=== PATIENT | female | born 1970 | race Caucasian/White ===

== ENCOUNTER 2023-01-13 15:51 | Emergency (ER) | payer OTHER, SELFPAY ==
[2023-01-13 16:05] VITALS: BP 113/93; PULSE 95; RESP 18; TEMP 36.6; O2SAT 94
--- NOTE | 2023-01-13 16:25 | ED.SKABFB ---
HPI - Skin/Abscess/Foreign Bdy General Chief complaint: Skin/Abscess/Foreign Body Stated complaint: Skin Sore/Left Side Time Seen by Provider: 01/13/23 16:10 Source: patient Mode of arrival: ambulatory Limitations: no limitations History of Present Illness HPI narrative: Vashti is a 52-year-old female patient presenting to the clinic today with complaints of a skin rash to the left abdominal wall. She reports that this been there for 2-3 days. States that the rash is itchy, red, and cr. Related Data Home Medications Medication Instructions Recorded Confirmed albuterol sulfate 90 mcg/actuation 90 inh inhalation DIRECTED 01/13/23 01/13/23 aerosol inhaler carvedilol 6.25 mg tablet 6.25 mg DIRECTED 01/13/23 01/13/23 cyclobenzaprine 10 mg tablet 10 mg DIRECTED 01/13/23 01/13/23 diphenoxylate-atropine 2.5 1 tablet DIRECTED 01/13/23 01/13/23 mg-0.025 mg tablet hydroxyzine HCl 25 mg tablet 25 mg DIRECTED 01/13/23 01/13/23 omeprazole 20 mg capsule,delayed 20 mg DIRECTED 01/13/23 01/13/23 release ondansetron HCl 4 mg tablet 4 mg DIRECTED 01/13/23 01/13/23 phenytoin 50 mg chewable tablet 50 mg DIRECTED 01/13/23 01/13/23 (Dilantin Infatabs) potassium chloride 10 mEq 10 meq PO DIRECTED 01/13/23 01/13/23 tablet,extended release ustekinumab 90 mg/mL subcutaneous 90 mg subcut DIRECTED 01/13/23 01/13/23 syringe (Stelara) Allergies Allergy/AdvReac Type Severity Reaction Status Date / Time codeine Allergy Severe Anaphylaxis Verified 01/13/23 16:17 fentanyl Allergy Severe Seizure Verified 01/13/23 16:17 ibuprofen Allergy Severe Anaphylaxis Verified 01/13/23 16:17 clarithromycin [From Biaxin] Allergy Mild Rash Verified 01/13/23 16:17 latex Allergy Mild Redness of Verified 01/13/23 16:17 Skin Penicillins Allergy Mild Rash Verified 01/13/23 16:17 Sulfa (Sulfonamide Allergy Mild Rash Verified 01/13/23 16:17 Antibiotics) Review of Systems Review of Systems: Pertinent positives per HPI. Patient denies any fever, chills, headache, visual changes, dizziness, cough, runny nose, sore throat, shortness of breath, chest pain, palpitations, nausea, vomiting, diarrhea, constipation, abdominal pain, or any urinary issues. PMFSH Comments At the time of my signature, I reviewed and agree with the nursing past medical, surgical, social, and family history. There is no relevant family history pertinent to the patient complaint. Exam Narrative: General: Well-developed, well nourished, in no apparent distress Head: Normocephalic, atraumatic. Cardio: Regular rate and rhythm, s1 and s2 normal, no murmur appreciated. Resp: Clear to auscultation bilaterally, no rhonchi, rales, wheezing or rubs. Integumentary: [place], warm, and dry, red, dry, itchy rash that is mildly painful under the left breast on the abdominal wall. Course Course Emergency Course: Portions of this record may have been created with voice recognition software. Level of Care: Express Care Visit Vital Signs Vital signs: Vital Signs Temperature 36.6 C 01/13/23 16:05 Pulse Rate 95 01/13/23 16:05 Respiratory Rate 18 01/13/23 16:05 Blood Pressure 113/93 H 01/13/23 16:05 Pulse Oximetry 94 01/13/23 16:05 Oxygen Delivery Room Air 01/13/23 16:05 Temperature 36.6 C 01/13/23 16:05 Pulse Rate 95 01/13/23 16:05 Respiratory Rate 18 01/13/23 16:05 Blood Pressure 113/93 H 01/13/23 16:05 Pulse Oximetry 94 01/13/23 16:05 Oxygen Delivery Room Air 01/13/23 16:05 Vital signs reviewed MDM - Skin/Abscess/Foreign Bdy MDM Narrative Medical decision making narrative: At the time of visit patient is resting comfortably on the exam table. I suspect patient has a dermatological verses yeast infection to the left abdominal wall. Will place patient on triamcinolone cream/nystatin. Supportive measures were discussed with the patient she voiced understanding discharge instructions agrees to juan
== END 2023-01-13 16:33 | disposition home or self-care (01) ==
PROVIDERS: Emergency Provider Nurse Practitioner Family; PCP Internal Medicine
DX: B37.2 Candidiasis of skin and nail (principal); G40.909 Epilepsy, unspecified, not intractable, without status epilepticus; I10 Essential (primary) hypertension; J44.9 Chronic obstructive pulmonary disease, unspecified; K50.90 Crohn's disease, unspecified, without complications; K21.9 Gastro-esophageal reflux disease without esophagitis; Z86.16 Personal history of COVID-19
CPT/HCPCS: 99213; G0463

== ENCOUNTER 2024-05-25 18:17 | Emergency (ER) | payer MEDICARE, SELFPAY ==
[2024-05-25 18:21] VITALS: BP 145/72; PULSE 103; RESP 18; TEMP 36.6; O2SAT 96
--- OUTSIDE RECORDS SUMMARY | 2024-05-25 18:21 | XMS_ITS | Referral Summary ---
Author Organization [facility] Address [address] [place] [address] Care Team Providers Care Associate Professor Of Physics Name Role Phone Tyrese Salinas MD Unavailable Blanco Moise MD Unavailable [phone] Lazara Prado MD, William C. Unavailable Bravo Macdonald MD Unavailable [phone] Erlin Bhakta MD Unavailable [phone] Luiza Gee NP Primary Care Provider Encounters Date Type Department Care Team Description 05/21/2024 7:15 PM CDT - 05/21/2024 11:59 PM CDT Hospital Encounter [facility] [address] [place] [address] MATT (obstructive sleep apnea) Discharge Disposition: Discharge to home or self care 05/13/2024 8:30 AM CDT Office Visit [facility] Sleep Medicine at [place] [address] [facility] [address] [place] [phone] Odessa Mcallister MD Obstructive sleep apnea (Primary Dx); MATT (obstructive sleep apnea); Obesity, unspecified class, unspecified obesity type, unspecified whether serious comorbidity present 05/09/2024 2:45 PM CDT Office Visit [facility] Surgery [facility] Floor 5 [place] [address] Jamari Haile Jr., MD Intestinal stoma prolapse (HCC) (Primary Dx); Colostomy care (HCC); [id number]; Chronic abdominal pain 04/26/2024 [facility] Post Discharge Follow up phone call [facility] Surgery Care [address] [place] [phone] Willa Calzada 04/26/2024 [facility] Post Discharge Follow up phone call [address] [address] Willa Calzada 04/25/2024 Telephone [facility] Medical Group Cardiology [address] [place] [address] [place] [phone] Alex Leary MD 04/23/2024 Results Follow-Up [facility] Gastroenterology [address] [place] [address] Medical Office Building [address] [place] [phone] Bravo Macdonald MD 04/21/2024 12:05 AM CHILD DEVELOPMENT PROFESSOR - 04/22/2024 1:10 PM CDT Emergency [address] [address] Kerri Broderick DO Kim, Eileen H., MD Ileostomy prolapse (HCC) (Primary Dx); Neutrophilia Discharge Disposition: Discharge to home or self care 04/16/2024 Telephone [facility] Surgery [address] [place] [address] Medical Office Building [address] [place] [phone] Courtney Fuller RN 04/16/2024 6:30 AM CHILD DEVELOPMENT PROFESSOR Lab [address] [phone] 04/16/2024 6:25 AM CHILD DEVELOPMENT PROFESSOR Lab [address] [phone] Crohn's disease of both small and large intestine with abscess (HCC) 04/11/2024 Telephone [facility] Gastroenterology [address] [facility] 12th [place] [address] [place] [phone] Annel Pickens, MADDIE 04/10/2024 Telephone [facility] Gastroenterology [address] [facility] 12th [place] [address] [place] [address] Nikkie Rivera Schedule MRE 04/03/2024 6:30 AM CHILD DEVELOPMENT PROFESSOR Lab [address] [phone] 03/22/2024 6:15 AM CHILD DEVELOPMENT PROFESSOR Lab [address] [phone] 03/22/2024 6:17 AM CHILD DEVELOPMENT PROFESSOR - 03/22/2024 11:59 PM CHILD DEVELOPMENT PROFESSOR Hospital Encounter [facility] Imaging Center [address] [place] [phone] Heart failure, unspecified (HCC) Discharge Disposition: Discharge to home or self care 03/22/2024 6:10 AM CHILD DEVELOPMENT PROFESSOR Lab [address] [phone] Magnesium deficiency; Crohn's disease of both small and large intestine with abscess (HCC); 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 03/22/2024 6:05 AM CHILD DEVELOPMENT PROFESSOR Lab [address] [phone] 03/19/2024 10:22 AM CHILD DEVELOPMENT PROFESSOR - 03/19/2024 11:59 PM CHILD DEVELOPMENT PROFESSOR Hospital Encounter [facility] Imaging [address] [place] [address] Ravi Umana MD Colostomy prolapse (HCC) Discharge Disposition: Discharge to home or self care 03/14/2024 Documentation [facility] Gastroenterology [address] [facility] 12th [place] [address] [place] [address] Annel Pickens RN 03/13/2024 ROV follow up 03/13/2024 11:45 AM CHILD DEVELOPMENT PROFESSOR Office Visit [facility] Gastroenterology [address] [place] [address] Medical Office Building 4 [address] [place] [phone] Bravo Macdonald MD Magnesium deficiency (Primary Dx); Crohn's disease of both small and large intestine with abscess (HCC); 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; High risk medications (not anticoagulants) long-term use; Crohn's disease of small and large intestines with complication (HCC) 03/13/2024 3:00 PM CHILD DEVELOPMENT PROFESSOR Office Visit [facility] Minimally Invasive Surgery [address] [place] [address] Medical Office Building 4 [address] [place] [phone] Ravi Umana MD Colostomy prolapse (HCC) (Primary Dx) 02/28/2024 6:15 AM CHILD DEVELOPMENT PROFESSOR Lab [address] [address] Magnesium deficiency; Crohn's disease of both small and large intestine with abscess (HCC); 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; High risk medications (not anticoagulants) long-term use from Last 3 Months Allergies Active Allergy Reactions Criticality Noted Date Comments Bacitracin-Polymyxin B Hives Medium 03/03/2022 Cephalexin Anaphylaxis,Hives High 08/10/2023 Tolerated meropenem 09/07/23 Clarithromycin Anaphylaxis,Hives High 03/03/2022 Clindamycin Hives Medium 03/21/2022 Codeine Anaphylaxis High Patient tolerages oxycodone without issues per Dr Hoover Tolerates morphine Fentanyl Seizures High Gadolinium-Containing Contrast Media Shortness of breath High 04/29/2021 Pt states MRI contrast triggers asthma attacks Ibuprofen Other (See comments) High Was told to not take NSAIDs due to history of Crohn's; has never had anaphylactic reaction Infliximab Chest tightness,Muscle pain,Chills,Joint pain,Nausea & Vomiting High 04/23/2021 Pt reported nausea with emesis, chills and rigors. Cramping in legs, lower back pain and stabbing chest pain. Patient sent to ED Iodinated Contrast Media Anaphylaxis,Hives,S hortness of breath,Nausea & Vomiting High 09/25/2015 Metoclopramide Seizures High Metronidazole Anaphylaxis High 08/10/2023 Polyethylene Glycol 3350 Hives Medium 12/02/2022 Penicillins Anaphylaxis,Hives High 01/27/2016 Tolerated meropenem 09/07/23 Raspberry Anaphylaxis High 08/10/2023 Sulfa (Sulfonamide Antibiotics) Rash Medium Tramadol Nausea & Vomiting Medium Medications cyanocobalamin, vitamin B-12, 5,000 mcg capsule Take 2 tablets by mouth water supply engineer before breakfast Active calcium carbonate-vitamin D3 1,250 mg (500 mg elemental)-400 unit tablet Take 1 tablet by mouth every morning Active potassium chloride ER (KLOR-CON) 20 mEq CR tablet Take 2 tablets (40 mEq total) by mouth daily 60 tablet 11 08/27/19 025 Active albuterol HFA (PROVENTIL HFA,VENTOLIN HFA,PROAIR HFA) 90 mcg/actuation inhaler Inhale 2 puffs every 6 (six) hours as needed for wheezing or shortness of breath Active omeprazole (PriLOSEC) 20 mg capsule Take 2 capsules (40 mg total) by mouth 2 (two) times a day before breakfast and dinner Active phenytoin (DILANTIN) 50 mg chewable tablet Take 6 tablets (300 mg total) by mouth 3 (three) times a day Active naloxone (NARCAN) 4 mg/actuation spray,non-aerosol Administer 1 spray into affected nostril(s) as needed for opioid reversal or respiratory depression Call 911. Administer a single spray in one nostril. Repeat every 3 minutes as needed if no or minimal response. 1 each 1 12/10/19 24 025 Active carvediloL (COREG) 3.125 mg tablet Take 1 tablet (3.125 mg total) by mouth 2 (two) times a day 10/04/19 24 Active magnesium oxide (MAG-OX) 400 mg (241.3 mg elemental magnesium) tabletIndications: hypomagnesemia Take 2 tablets (800 mg total) by mouth 2 (two) times a day 120 tablet 01/10/20 24 Active risankizumab-rzaa (Skyrizi) 360 mg/2.4 mL (150 mg/mL) wearable injectorIndication s:Crohn's disease of colon with complication (HCC) Inject 360 mg under the skin every 8 (eight) weeks Safety labs required every 3 months for refills. Next set of labs due 04/2024 2.4 mL 1 02/14/19 25 Active loperamide (IMODIUM) 2 mg capsuleIndications :high output ileostomy Take 2 capsules (4 mg total) by mouth 4 (four) times a day 120 capsule 03/13/19 25 Active diphenoxylate-atro pine (LOMOTIL) 2.5-0.025 mg per tabletIndications: diarrhea Take 2 tablets by mouth 4 (four) times a day as needed for diarrhea 120 tablet 5 03/13/19 25 025 Active aspirin 81 mg enteric coated tablet Take 1 tablet every day by oral route. 04/09/19 25 Active atorvastatin (LIPITOR) 20 mg tablet Take 1 tablet (20 mg total) by mouth daily 04/09/19 25 Active benzonatate (TESSALON) 100 mg capsule TAKE 1 CAPSULE BY MOUTH THREE TIMES DAILY NEEDED FOR COUGH 03/20/19 25 Active cholecalciferol (VITAMIN D-3) 50,000 unit capsule Take 1 capsule (50,000 Units total) by mouth once a week 04/01/19 25 Active furosemide (LASIX) 40 mg tablet Take 2 tablets in the morning and one in the afternoon 04/09/19 25 Active nitroglycerin (NITROSTAT) 0.4 mg SL tablet As needed Active ondansetron ODT (ZOFRAN-ODT) 4 mg disintegrating tablet DISSOLVE ONE TABLET BY MOUTH EVERY 8 HOURS NEEDED FOR NAUSEA 11/06/19 23 Active spironolactone (ALDACTONE) 25 mg tablet Take 1 tablet (25 mg total) by mouth daily 02/25/19 25 Active umeclidinium (INCRUSE ELLIPTA) 62.5 mcg/actuation blister with device As needed 02/25/19 25 Active HYDROcodone-acetam inophen (NORCO) 5-325 mg per tabletIndications: Pain Take 1 tablet by mouth every 6 (six) hours as needed for pain for up to 15 days 60 tablet 04/23/19 25 025 Active Problems Problem Noted Date Diagnosed Date Chest pain 04/29/2024 Ileostomy prolapse 04/21/2024 Irreducible parastomal hernia 03/13/2024 Magnesium deficiency 02/05/2024 Assessment & Plan (03/13/2024 10:24 PM CHILD DEVELOPMENT PROFESSOR): Improved after we arranged IV dose x1. Cont PO BID. Monitor for need for repeat IV. Ileostomy in place 12/06/2023 Assessment & Plan (12/09/2023 12:17 PM CDT): -Presents with abdominal pain in setting of chronic ileostomy. Imaging with parastomal hernia and concern for soft tissue thickening -Patient was seen by Colorectal surgery. Assessment consistent with colostomy prolapse in conjunction with a parastomal hernia. -Reducible stoma as per surgery documentation and no acute surgical intervention needed. Recommended wound/ostomy consult an abdominal binder. Patient was seen by wound ostomy, placed info in pt dc paperwork for outpatient ostomy clinic where she can be formally fitted for stoma hernia belt. Abdominal binder in place -Pain control. Vaginal candidiasis 10/08/2023 Assessment & Plan (10/08/2023 12:45 PM CDT): Patient reports that she feels like she has a yeast infection due to recent abx use. Ordered 1 dose diflucan. Recommend OP follow up with PCP. Breakthrough seizure 10/02/2023 Assessment & Plan (10/08/2023 12:22 PM CDT): Most likely a combination of poor po intake with resultant metabolic acidosis and in setting of meropenem use. Patient states dilantin has been at target dose, even though subtherapeutic on labs. Per pharmacy, medication has not been filled in the past month. Dilantin dose adjusted to 200 mg TID. Dilantin level 9.9 on discharge. Recommend patient follow up with PCP in the next several days to repeat dilantin level. Metabolic acidosis 10/02/2023 Assessment & Plan (10/08/2023 12:23 PM CDT): Likely due to high ostomy output. Resolved. -continue bicarb 650 mg TID OP and continue to monitor OP labs. Titrate as needed OP. -continue infusions at home with 2L NS daily. Home health set up with [facility]. Dr. Torres Cordon will follow OP. Hypomagnesemia 10/02/2023 Assessment & Plan (10/06/2023 4:48 PM CDT): 2/2 high ostomy output - continue to monitor and replete as needed Bacteremia 10/02/2023 Assessment & Plan (12/09/2023 12:19 PM CDT): Patient has been having low to high grade fevers for the last few days and went to GI Clinic for her regular follow-up care lab work was done and she was sent to ED after positive blood cultures from PICC line for E coli. Her current PICC line was placed by IR 10/05 as she needs IV fluid infusions at home for her short-bowel syndrome. -Blood cultures 12/03 from PICC line E coli putnam susceptible however patient is allergic to penicillins/cephalosporins. Blood cultures 12/04 2/2 negative to date -Id were consulted who recommended PICC removal and replacement after 48 hour line holiday if needed. IR removed PICC line 12/07. -Continue IV ciprofloxacin and daptomycin changed to p.o. ciprofloxacin and doxycycline as per ID recommendations and will discharge on doxy/cipro to complete 14 days of therapy from date of line removal to cover bacteremia and LLQ SSTI seen on CT. -Antidiarrheals scheduled to decrease high ostomy output so that she does not need another central line for IV fluids Assessment & Plan (10/08/2023 12:25 PM CDT): Patient was supposed to remain on dapto/ hilda until ID clinic appointment this Monday, per ID SITE PLANNER Rubi Garvey. PICC line was removed early as it was not malfunctioning, not bc therapy was completed. Finished course of dapto/ hilda with last dose given on 10/05. Blood cx negative. Recommend OP ID follow up. Cellulitis 10/02/2023 Assessment & Plan (10/08/2023 12:11 PM CDT): Appears resolved. See media Recommendations: Right medial Abdominal wound - DAILY. Cleanse with wound cleanser and pat dry. Apply thin layer of extra protective barrier cream to charlie wound skin. Gently pack with 1 continuous piece of 1/4 in. Plain packing strip moistened with instrasite wound gel. Cover with 2x2 Allevyn foam border dressing. Empty ostomy pouch when 1/3 to 1/2 full. May attach high output pouch to Cortes drainage bag overnight or if pt requests due to high liquid output. Bedside nursing to assist pt with ostomy appliance changes Q4days and PRN if leaking - pt independent with pouch changes at home. Bacteremia associated with intravascular line Assessment & Plan (12/13/2023 6:46 PM CDT): Per ID will plan to switch to IV cipro for additional 7 days to complete course, given her inability to tolerate PO. Per CM would be able to use the midline placed at OSH. Per ID ok to stop the doxy given no ongoing evidence for SSTI. Assessment & Plan (09/26/2023 2:36 PM CDT): -Patient presents to clinic for post hospital visit. She completed 8 days of vancomycin and ertapenem for the treatment of staphylococcus Hominis and klebsiella oxytoca blood stream infection and staphylococcus aureus, bacteroides thetaiotaomicron, and mixed micro SSTI. -We will restart the patient on daptomycin today 6 mg/kg if she tolerates that we will restart meropenem on Monday. She will complete an additional 10 days of antibiotics. -We reviewed recent labs -We will continue weekly labs while on IV antibiotics CBC CMP and CK -Patient will continue on antibiotics until we follow up with her again in clinic -Encouraged strict wound care and following up with her surgeon - Discussed with patient the rational for treatment, culture results, risk of recurrent infection, signs/symptoms of recurrent infection, and to contact ID clinic with any questions or concerns. Assessment & Plan (09/14/2023 2:50 PM CDT): Blood cultures (09/10): NGTD Blood cultures (09/09): staphylococcus Hominis 1 of 2 Blood cultures (09/08): staph hominis 1 of 2 Blood cultures (09/07): klebsiella oxytoca 2 of 2 Abdominal wound swab (09/06): staphylococcus aureus, bacteroides thetaiotaomicron, mixed micro BCx (09/06): Staphylococcus Hominis x2 1 of 2 UCx (09/05): klebsiella oxytoca plus growth of clinically insignificant jan PICC removed on 09/09 with blood cultures the same day showing GPCs. Repeat cultures in process. Though staph hominis is often considered a contaminant, it has popped up in multiple cultures. Additionally patient had a lne in place. Given this information, we are treating this as a true pathogen and are recommended treatment for CLABSI. Cultures have remained clear since line removal. Recommend treatment course for CLABSI. Recommendations: -Please continue Vancomycin. Adjust dose to 750mg IV Q24H. -Obtain vancomycin trough prior to the third dose (goal 10-20) -OK for PICC placement -Per primary team, CRS wanting to continuing IVFs on discharge. PICC to remain in place after IV abx course -Confirmed with CM that patient will discharge with BHI. ID will manage OPAT Postoperative wound dehiscence, initial encounte r 09/06/2023 Assessment & Plan (09/14/2023 2:55 PM CDT): Vashti Dillon is a 53 yro W w/ ileocolic and perianal Crohns disease s/p ileocolic resection and end ileostomy resulting in high output syndrome s/p ileostomy takedown (08/15/23) presenting with 1 wk fevers at home. She was admitted to [facility] on 09/04 and ID was consulted on 09/06 for antibiotic recommendations. Patient notes she began having increasing pain over her abdomen 1 wk ago and started to notice purulent drainage from the incision. She states since she has been on broad spectrum therapy inpatient with Vancomycin and Aztreonam she has not had any improvement. She notes the purulent drainage has continued and she has had no improvement in pain or erythema. She is on Skyrizi for her Crohn's and last injection was 2 wks prior. Patient was originally on Vancomycin and Aztreonam with minimal improvement. Imaging notes no drainable collection but diffuse cellulitis. Wound lateral to the colostomy site was draining purulent material, this was cleaned off with wound ditch cleaner several times and from a deeper tract, superficial wound cultures collected by ID at bedside. Aztreonpam was transitioned to meropenem based on ID recommendaitons. Blood cultures (09/10): NGTD Blood cultures (09/09): staphylococcus Hominis 1 of 2 Blood cultures (09/08): staph hominis 1 of 2 Blood cultures (09/07): klebsiella oxytoca 2 of 2 Abdominal wound swab (09/06): staphylococcus aureus, bacteroides thetaiotaomicron, mixed micro BCx (09/06): Staphylococcus Hominis x2 1 of 2 UCx (09/05): klebsiella oxytoca plus growth of clinically insignificant jan CT A/P WO contrast (09/11): no acute findings as source of infection Left groin ultrasound (09/10): findings consistent with resolving abscess CT A/P (09/05): soft tissue stranding in the anterior intraperitoneal abdomen, more than expected, 3 weeks postoperatively. No dasia evidence of fascial dehiscence. Unorganized gas and fluid within the midline abdominal wound. Patient underwent CT non-con rather than ultrasound. No findings of abscess. Patient can tender today but asking about going home. On exam, still having purulent discharge easily expressed with pressure from distal wound. CT did not comment on drainable abscess. However, given amount of purulence so easily expressed, we would recommend patient be seen by ID for wound check prior to stopping antibiotics. Given patient's list of antibiotic allergies, and issues with high ostomy output, we are anticipating she will need to continue IV antibiotics for the duration of her treatment course. Planning on 10 -14 days. Patient should be seen by ID for wound check prior to stopping antibiotics. Recommendations: -Continue Vancomycin. Would decrease to 750mg IV Q24H given higher troughs -Continue ertapenem -While on the IV antibiotics, please obtain at least a weekly CBC with diff, weekly LFTs, TWICE weekly BMP, vancomycin trough prior to the 3rd dose(goal 10-20) -follow up with ID in 10-14 days for wound check. Continue antibiotics until seen by ID -Thank you for allowing us to particpate in the care of this patient. For questions or concerns, please do not hesitate to reach out. Crohn's disease involving terminal ileum 024 Chronic renal disease, stage IV 07/30/2023 Obesity, morbid 07/30/2023 Rheumatoid arthritis involvi ng both knees with negative rheumatoid factor 05/22/2023 Centrilobular emphysema 05/22/2023 Abdominal pain 05/02/2023 Assessment & Plan (12/13/2023 6:47 PM CDT): Ongoing since last hospitalization. Possible she had transient SBO or ileus at OSH ED but clinically resolved at present. CRS with no current surgical concerns. Regarding the parastomal hernia - she is to see RN outpatient to be fitted for hernia belt. She thinks she needs a referral to a surgeon for the hernia as well - will clarify plans. ID noted increased pneumobilia on OSH CT - discussed with GI and they think related to prior sphincterotomy. Etiology of pain somewhat unclear at present. - pain control as needed - continue anti-diarrheals for short gut syndrome, monitor ostomy output - oral rehydration plan as per elsewhere Left arm pain 03/20/2023 Assessment & Plan (03/20/2023 10:41 AM CHILD DEVELOPMENT PROFESSOR): Left arm pain with neck swelling. Concern for DVT given active IBD and recent rinvoq use. No SOB. Check LUE US. She is scheduled to see her vest tailor soon. Counseled her that any CP, SOB before then she needs to go to ER. Hypokalemia 02/15/2023 Assessment & Plan (12/13/2023 6:46 PM CDT): Ongoing replacement via K in IVF's. Continue to monitor electrolytes. Acute kidney injury superimposed on chronic kidn ey disease 02/15/2023 Stage 3a chronic kidney disease 02/15/2023 Diarrhea 02/15/2023 Moderate protein-calorie malnutrition 01/17/2023 Assessment & Plan (12/13/2023 6:34 PM CDT): Dietary consult. ADAT - per GI rec for short gut with colon diet (high protein, low fat, high complex carbs) + oral rehydration solution - per d/w dietary she was not actually able to get this during her last stay so was on gatorade which he will order for now while exploring options. High risk medications (not anticoagulants) long- term use 01/16/2023 Assessment & Plan (03/13/2024 10:06 PM CHILD DEVELOPMENT PROFESSOR): All immunosuppressants carry a theoretical risk of infection, though risankizumab is among the safest. We recommend the patient get all available vaccinations, including the pneumococcus series, covid19 and annual influenza. We monitor CBC and HFP q 3 months for cytopenias and hepatotoxicity. Assessment & Plan (06/27/2023 4:48 PM CDT): All immunosuppressants carry a theoretical risk of infection, though risankizumab is among the safest. We recommend the patient get all available vaccinations, including the pneumococcus series, covid19 and annual influenza. We monitor CBC and HFP q 3 months for cytopenias and hepatotoxicity. Assessment & Plan (03/20/2023 10:22 AM CHILD DEVELOPMENT PROFESSOR): All immunosuppressants carry a theoretical risk of infection, though risankizumab is among the safest. We recommend the patient get all available vaccinations, including the pneumococcus series, covid19 and annual influenza. We monitor CBC and HFP q 3 months for cytopenias and hepatotoxicity. Stopped Rinvoq due to lipids. Check LUE US to make sure no blood clot given swelling. Has cardiology appt next week. Counseled her to go to ER if develops CP, SOB. Assessment & Plan (01/16/2023 12:02 PM CHILD DEVELOPMENT PROFESSOR): All immunosuppressants carry a theoretical risk of infection, though risankizumab is among the safest. We recommend the patient get all available vaccinations, including the pneumococcus series, covid19 and annual influenza. We monitor CBC and HFP q 3 months for cytopenias and hepatotoxicity. Healthcare maintenance 01/16/2023 Overview (01/16/2023): Immunizations: Influenza annual Pneumococcus needs prevnar 20 Zoster recommend HBV check serology Covid yes Cervical cancer screening: routine follow up with waste recycler Skin cancer screening: consider referral to dermatology to discuss screening strategy Bone health: DEXA: in future. 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 Nutrition consult IV fluid administration Electrolyte replenishment Assessment & Plan (10/08/2023 12:20 PM CDT): Patient with high ostomy outputs. She has been receiving 2L IVF daily at home while PICC line was in place. Stool cx, c diff, fecal calprotectin all negative. GI was consulted and bowel regimen was adjusted. Patient was started on Imodium 4x daily and lomotil 2 tab QID. Ostomy output decreased greatly and on day of discharge, patient only had 350 cc output in the morning. Advised to hold lomotil and titrate as needed OP. Continue metamucil. Tunneled line placed by IR on 04/07 and patient will continue daily infusions with 2L NS OP. HH ok with discharge today. Will continue bicarb on discharge. Titrate OP. Assessment & Plan (06/27/2023 4:58 PM CDT): Continues to have high output req IVF. Weight is stable. She will need her colon put back in to continuity. Assessment & Plan (03/20/2023 10:39 AM CHILD DEVELOPMENT PROFESSOR): High output but UOP ok and Cr improving with extra IVF. Weight is stable. Rec increasing Mg to BID, though likely wont be able to go higher because it may make her output worse. Ultimately she needs to be hooked back up but she needs to be on risankizumab first. Assessment & Plan (01/16/2023 1:25 PM CHILD DEVELOPMENT PROFESSOR): 185 cm of small bowel in end ileostomy but with transverse colon and beyond not in continuity. This high of output is not sustainable. She at the least needs more IVF but may need TPN if it can't come down with antidiarrheals. She should have enough bowel to avoid terminal operations manager TPN especially if and when she can be hooked back up. Agree she needs to be on better Crohn's regimen before this can be considered. High output ileostomy 01/16/2023 Crohn's disease of colon with complication 12/21 Crohn's disease with complication 11/21/2022 Overview (04/23/2024): Year of diagnosis: 1987. Year symptoms began: 1987. Phenotype: Penetrating (B3) with perianal disease. Distribution: ileocolonic (L3) without upper GI disease (L4). Extraintestinal manifestations: none. Complications: flare during in 1987, multiple admits with SBO, perianal disease, short bowel syndrome. Prior surgeries: 1987 R hemicolectomy during 1989 - 1995 SBR x 3 2009 LISA 12/21/2022 ex lap, re-do ICR, EI, EUA with seton placement ([place]) Prior treatments: prednisone, Pentasa, infliximab + aza (worked but stopped d/t ins, developed ab when restarted), adalimumab + aza (no response), vedolizumab (no response), ustekinumab (no response). Current treatment: none. TPMT: ? Tolerated aza before 1987 presented with abdominal pain when 5 mos 06/19/1987 open ileocolic resection with a primary anastomosis Put on Pentasa. Required multiple courses of prednisone. ~1997 - 2001 was on infliximab and azthioprine Did well but stopped due to insurance not paying for it Developed perianal disease Put on humira 2014 mucosal remission 2015 ulcers in neoTI Lost to fu from IBD No response to humira No response to vedolizumab 2020 tried infliximab again but developed antibodies 07/2021 admitted to [facility] for perianal abscess s/p EUA with setons Started ustekinumab Multiple admits for perianal disease and SBO 11/16/2022 Colonoscopy on [facility] from Dr. Oconnor at OSH Perianal exam and rectal examination revealed a seton. No drainage noted her seton in place. Upon entering the rectum, the entry of the seton in the rectal wall noted with some surrounding mild chronic mucosal ulceration or possibly necrosis. No acute ulcers noted though. Rest of the colon otherwise shows normal-looking mucosa with normal mucosal pattern. However moderate amount of thick liquid stool had to be constantly lavaged and suctioned out. Upon reaching the ileocecal anastomosis, moderate inflammation was noted. The area of ileocolonic anastomosis was open but was severely ulcerated. The ulceration extended for about 10 cm into the ileum beyond which it was all normal-looking ileum. Multiple biopsies were obtained from the ileum from the ulcerated area. Separate biopsies were obtained at the ileocolonic anastomosis from the colon site also. 12/21/2022 ex lap, re-do ICR, EI, EUA with seton placement New posterior right-sided perianal fistulous tract from a distal anal canal internal opening to a buttock external opening approximately 5 cm from the anal verge. Left groin superficial abscess that appears hidradenitis in nature. Dense anterior abdominal wall adhesions from what appeared to be a prior preperitoneal mesh hernia repair 2 the omentum and several loops of bowel. Inflamed, thickened monique terminal ileum with ulcerations along the ileal mesentery and severely thickened and chronically inflamed terminal ileal mesentery tracking to the mesenteric root. The bowel measured a total of 185 cm from the ligament of Treitz to the area where the ileum appeared involved with Crohn's disease and had a thickened mesentery. I elected to transect the small bowel at this point. Proximal transverse colon Path A. Ileocolic anastomosis, excision: - Segment of ileum with chronic active ileitis, characterized by mucosal ulceration, pseudopyloric metaplasia, neuromuscular hypertrophy, fibrosis and stricture formation - Negative for granulomas, dysplasia or malignancy - Attached portion of colon appears uninvolved by Crohn's disease - Resection margins are unremarkable - Six reactive lymph nodes Readmitted with high ostomy output and new perianal fistula. EUA with additional seton placed Discharged on IVF Started rinvoq as bridge to Skyrizi Stopped due to persistently elevated lipids 08/2023: recent takedown ileostomy loop and colostomy end Admitted twice due to postoperative wound dehiscence and breakthrough seizures. 10/2023: CT scan showed cellulitis around the left lower quadrant, near the colostomy site. Took 10 day course of linezolid.colostomy loop has protruded more, becoming increasingly sore. 04/2024 calpro normal Assessment & Plan (03/13/2024 10:21 PM CHILD DEVELOPMENT PROFESSOR): Severe ileocolonic and perianal crohn's s/p multiple surgeries now with short bowel s/p ileostomy takedown and end colostomy. She still has high output from short bowel but her renal function is fine and her Mg is better and she is gaining weight. She is going to have high output but she has adapted enough to maintain weight and hydration. I want to reassess her crohn's but wait until she is back on risankizumab consistently. She sent in the patient assistance forms and left us a copy. -continue risankizumab -MRE 3 mos -RTC 6 mos. We will likely schedule a colonoscopy at that time. I do worry about dehydration with a colonoscopy prep. Will need to be cautious. Assessment & Plan (12/04/2023 2:30 PM CDT): After her colostomy in July, she has experienced the complications: Protrusion of the ostomy, pain around the ostomy, and cellulitis on CT scan: She should consult a surgeon regarding these issues. High output: She has approximately 6 liters of output daily. It was recommended that she switch to oral rehydration solutions instead of plain water and Powerade, which may pass through too quickly. She was advised to consult a ham marker, but since her insurance does not cover this, handouts will be provided on diet and short bowel syndrome fluid management. She can continue intravenous fluids until her output normalizes, though her labs are being monitored. Crohn s disease: She should continue taking Skyrizi. Fever: A lab workup will be done to determine the source of the fever, including blood and urine cultures. A follow-up is scheduled in six weeks. If the patient experiences severe abdominal pain or persistent fever, advised to visit the ER Assessment & Plan (10/08/2023 12:14 PM CDT): Continue Skyrizi OP. No suspected flare as patient is at baseline. Continue OP follow up with GI. Assessment & Plan (06/27/2023 5:00 PM CDT): Severe ileocolonic and perianal crohn's with failure of multiple medications and multiple surgeries now with short bowel syndrome req IVF. She now essentially in surgical remission. I explained the risk of her perianal disease getting worse again after takedown, especially since she will likely have diarrhea from short bowel syndrome. I would be very reluctant to remove her setons. However, she needs her colon in continuity to help get her off IVF support. She is on good medicine and doesn't have many medicines left, gabrielle since she didn't tolerate rinvoq, so I think this is as good of a shot we will get. If her perianal disease gets out of control she may ultimately need a colostomy. I discussed this as an option up front but she would like to try getting hooked back up if possible. Either way she needs to be put back in continuity because of her short bowel syndrome. I do recommend waiting until her first SQ dose. I will discuss with Dr. Haile. Assessment & Plan (03/20/2023 10:37 AM CHILD DEVELOPMENT PROFESSOR): Fistula symptoms improved with setons and diversion. Her lipids did not tolerate Rinvoq. She needs risankizumab. We are awaiting approval. Would not hook her back up until she has been on risankizumab for at least several months. Even then there is no guarantee her perianal disease wont get worse, but she needs to be hooked back up given her short bowel and high ostomy output. She may need setons indefinitely. Would be very cautious about removing them. Assessment & Plan (01/16/2023 1:34 PM CHILD DEVELOPMENT PROFESSOR): Severe ileocolonic and perianal crohn's now s/p re-do ICR with EI with short bowel, high ostomy output and likely new perianal fistula. I spoke with her surgeon, Dr. Haile. Given her new fistula, vomiting and high output he is going to admit her. She has severe disease and has failed multiple biologics and now has short bowel. The only two reasonable options for her crohn's are risankizumab or upadacitinib. I prefer risankizumab for it safety profile. I agree we need her crohn's under better control before considering takedown. Even if we get under reasonable control, perianal disease may come back after continuity is restored. In that case we may need to discuss converting to a colostomy. Judging by her high output she needs her colon for hydration. -Will submit for risankizumab -Will plan for cipro/flagyl through induction to augment response for perianal disease -Eval of fistula per CRS. Once source control is achieved if needed, will consider upadacitinib as a bridge to risankizumab. No role for steroids. -IBD consult service will follow. 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 Chronic abdominal pain 03/30/2017 Biliary tract disease 03/30/2017 Leukocytosis 03/30/2017 Abnormal serum level of alkaline phosphatase Gastroesophageal reflux disease without esophagi tis 03/22/2016 Seizure 03/22/2016 Assessment & Plan (12/13/2023 6:47 PM CDT): Continue home phenytoin which she states she has been able to tolerate Assessment & Plan (12/06/2023 5:34 PM CDT): Continue home phenytoin Resolved Problems Problem Noted Date Diagnosed Date Resolved Date Abscess of breast 05/14/2014 03/30/2017 Overview (05/20/2016): Breast abscess Immunizations Immunization Administration Dates Next Due Hep A, Adult 03/06/2001,07/04/2000 Influenza, Quadrivalent, Spl it, Intramuscular 12/17/2020,11/14/2019,11/17/2016,12/23,02/16/2015 Influenza, Quadrivalent, Spl it, Preservative Free, Intramuscular 11/11/2022,02/24/2020,04/12/2019 Influenza, Trivalent, IM (MDV) ,12/21/2015,11/13/2014,11/13 Influenza, Unspecified 11/14/2023 Pneumococcal Polysaccharide PPV23 02/16/2015 Tdap 01/24/2022,05/18/2015 Social History Tobacco Use Types Packs/Day Years Used Date Smoking Tobacco: Former Cigarettes 2 37 1 4 - 2020 Smokeless Tobacco: Never Tobacco Cessation:Counseling Given: Not Answered Alcohol Use Standard Drinks/Week Comments No 0 (1 standard drink = 0.6 oz pur e alcohol) OASIS D0700: Social Isolation Answer Da te Recorded Frequency of experiencing loneliness or isolatio n Never 12/21/2023 OASIS A1250: Transportation Answer Date Recorded Lack of Transportation (Medical) No 12/21/2023 Lack of Transportation (Non-Medical) No 12/21/2023 Patient Unable or Declines to Respond No 12/21/2023 OASIS B1300: Health Literacy Answer Ricci e Recorded Frequency of needing help to read materials from doctor or pharmacy Sometimes 12/21/2023 [facility] Utilities Answer Date Recorded In the past 12 months has th e [employer], gas, oil, or water [employer] threatened to shut off services in your home? No 04/22/2024 Social Connection and Isolat ion Panel [NHANES] Answer Date Recorded In a typical week, how many times do you talk on the phone with family, friends, or neighbors? More than three times a week 04/22/2024 How often do you get togethe r with friends or relatives? More than three times a week 04/22/2024 How often do you attend [facility] or alevism services? Patient declined 04/22/2024 Do you belong to any clubs o r organizations such as adventism groups, unions, fraternal or athletic groups, or school groups? No 04/22/2024 How often do you attend meet ings of the clubs or organizations you belong to? Never 04/22/2024 Are you , , di vorced, , never , or living with a partner? Never 04/22/2024 AUDIT-C Answer Date Recorded Q1: How often do you have a drink containing alcohol? Never 04/21/2024 Q2: How many drinks containi ng alcohol do you have on a typical day when you are drinking? Patient does not drink Q3: How often do you have si x or more drinks on one occasion? Never 04/21/2024 Overall Financial Resource Strain (CARDIA) Answe r Date Recorded How hard is it for you to pa y for the very basics like food, housing, medical care, and heating? Somewhat hard 04/22/2024 PHQ-2 Answer Date Recorded PHQ-2 Total Score 0 09/07/2023 Hunger Vital Sign Answer Date Recorded Within the past 12 months, y ou worried that your food would run out before you got the money to buy more. Never true 04/23/19 25 Within the past 12 months, t he food you bought just didn't last and you didn't have money to get more. Never true 04/22/2024 PRAPARE - Transportation Answer Date Re corded In the past 12 months, has l ack of transportation kept you from medical appointments or from getting medications? No 04/13 In the past 12 months, has l ack of transportation kept you from meetings, work, or from getting things needed for daily living? No 04/22/2024 Housing Stability Vital Sign Answer Ricci e Recorded In the last 12 months, was t here a time when you were not able to pay the mortgage or rent on time? Yes 01/17/2023 In the last 12 months, how many places have you lived? 1 01/17/2023 In the last 12 months, was t here a time when you did not have a steady place to sleep or slept in a prison (including now)? No 01/17/2023 Housing Stability Vital Sign Answer Ricci e Recorded In the last 12 months, was t here a time when you were not able to pay the mortgage or rent on time? No 04/22/2024 In the past 12 months, how m any times have you moved where you were living? 0 04/22/2024 At any time in the past 12 m [facility], were you homeless or living in a prison (including now)? No 04/22/2024 Personal Safety Answer Date Recorded Have you ever been in or are you currently in a harmful physical or emotional relationship or is someone making you feel afraid or unsafe? Denies 04/21/2024 Comments No Sex and Gender Information Value Date Recorded Sex Assigned at Not on file Legal Sex Female 12:42 AM CHILD DEVELOPMENT PROFESSOR Gender Identity Not on file Sexual Orientation Not on file Last Filed Vital Signs Vital Sign Reading Time Taken Comments Blood Pressure 106/78 05/13/2024 7:57 AM CDT Pulse 94 05/13/2024 7:57 AM CDT Temperature 36.4 C (97.5 F) 05/09/2024 2:14 PM CDT Respiratory Rate 18 05/09/2024 2:14 PM CDT Oxygen Saturation 95% 05/13/2024 7:57 AM CDT Inhaled Oxygen Concentration - - Weight 108 kg (238 lb 3.2 oz) 05/13/2024 7:57 AM CDT Height 165.1 cm (5' 5 ) 05/13/2024 7:57 AM CDT Body Mass Index 39.64 05/13/2024 7:57 AM CDT Plan of Treatment Upcoming Encounters Date Type Department Care Team (Latest Contact Info) Description 05/29/2024 8:05 AM CDT Hospital Encounter [facility] Cardiac Wharf Tender Helper [address] [place] [address] [phone] Alex Leary MD [address] [facility] [address] [place] [address] Chest pain, unspecified type 05/29/2024 8:05 AM CDT - 05/29/2024 9:00 AM CDT Surgery [facility] Cardiac Wharf Tender Helper [address] [place] [address] [phone] Alex Leary MD [address] [place] [address] Right Left Heart Catheterization with Coronary Angiography with or without Left Ventriculography [id number] Medical Devices Explanted Type Area Plumbing Assembler Installer Device Identifier Shelf Expiration Date Model / Serial / Lot Stent Pancreatic Augustin Flexi-Stent .035 In L3 Cm Od7 Fr Small Pigtail Flexible - [id number] Implanted:Qty: 1 on 03/29/2017 by Tyrese Salinas MD at [facility] Explanted:Qty: 1 on 03/31/2017 at [facility] Stent N/A: Pancreas [employer] 12/13/2021 [id number] / / [id number] Stent Wallflex Biliary Rx Fc [employer] [id number] - [id number] Implanted:Qty: 1 on 03/29/2017 by Tyrese Salinas MD at [facility] Explanted:Qty: 1 on 03/31/2017 at [facility] Stent N/A: Bile Duct Graph Story Eric 01/18/2019 [id number] / / [id number] Procedures Procedure Name Priority Date/Time Associated Diagnosis Comments EGFR Routine 04/22/2024 3:11 AM CDT DIFFERENTIAL AUTO Routine 04/22/2024 3:1 1 AM CDT PHOSPHORUS Routine 04/22/2024 3:11 AM CDT MAGNESIUM Routine 04/22/2024 3:11 AM CDT BASIC METABOLIC PANEL Routine 04/22/2024 3:11 AM CDT CBC WITH AUTO DIFFERENTIAL Routine 04/22/2024 3:11 AM CDT URINALYSIS, MICROSCOPIC ONLY STAT 04/21/2024 4:31 AM CDT URINALYSIS AND REFLEX TO MICROSCOPIC AND CULTURE STAT 04/21/2024 4:[address] ABDOMEN PELVIS WO CONTRAST ED 04/21/2024 3:29 AM CDT SEPSIS LACTATE WITH REFLEX STAT 04/21/2024 1:49 AM CHILD DEVELOPMENT PROFESSOR BLOOD CULTURE STAT 04/21/2024 1:49 AM CHILD DEVELOPMENT PROFESSOR BLOOD CULTURE STAT 04/21/2024 1:49 AM CHILD DEVELOPMENT PROFESSOR EGFR STAT 04/20/2024 9:56 PM CHILD DEVELOPMENT PROFESSOR DIFFERENTIAL AUTO STAT 04/20/2024 9:5 6 PM CHILD DEVELOPMENT PROFESSOR COMPREHENSIVE METABOLIC PANEL STAT 04/20/2024 9:56 PM CHILD DEVELOPMENT PROFESSOR CBC WITH AUTO DIFFERENTIAL STAT 04/20/2024 9:56 PM CHILD DEVELOPMENT PROFESSOR CALPROTECTIN, FECAL Routine 04/16/2024 6 :39 AM CHILD DEVELOPMENT PROFESSOR Crohn's disease of both small and large intestine with abscess (HCC) EGFR Routine 04/16/2024 6:32 AM CHILD DEVELOPMENT PROFESSOR MAGNESIUM Routine 04/16/2024 6:32 AM CHILD DEVELOPMENT PROFESSOR PRO B-TYPE NATRIURETIC PEPTIDE Routine 04/16/2024 6:32 AM CHILD DEVELOPMENT PROFESSOR COMPREHENSIVE METABOLIC PANEL Routine 04/16/2024 6:32 AM CHILD DEVELOPMENT PROFESSOR EGFR Routine 04/03/2024 6:49 AM CHILD DEVELOPMENT PROFESSOR PRO B-TYPE NATRIURETIC PEPTIDE Routine 04/03/2024 6:49 AM CHILD DEVELOPMENT PROFESSOR HEMOGLOBIN A1C Routine 04/03/2024 6:49 AM CHILD DEVELOPMENT PROFESSOR LIPID PANEL Routine 04/03/2024 6:49 AM CHILD DEVELOPMENT PROFESSOR COMPREHENSIVE METABOLIC PANEL Routine 04/03/2024 6:49 AM CHILD DEVELOPMENT PROFESSOR XR CHEST PA LATERAL 2 VIEWS Schedule Routine, Read Routine (OP Routine) 03/22/2024 6:38 AM CHILD DEVELOPMENT PROFESSOR Heart failure, unspecified (HCC) EGFR Routine 03/22/2024 6:25 AM CHILD DEVELOPMENT PROFESSOR PHENYTOIN LEVEL, TOTAL Routine 03/22/2024 6:25 AM CHILD DEVELOPMENT PROFESSOR VITAMIN B12 Routine 03/22/2024 6:25 AM CHILD DEVELOPMENT PROFESSOR VITAMIN D 25 HYDROXY Routine 03/22/2024 6:25 AM CHILD DEVELOPMENT PROFESSOR T4, FREE Routine 03/22/2024 6:25 AM CHILD DEVELOPMENT PROFESSOR TSH Routine 03/22/2024 6:25 AM CHILD DEVELOPMENT PROFESSOR MAGNESIUM Routine 03/22/2024 6:25 AM CHILD DEVELOPMENT PROFESSOR Magnesium deficiency Crohn's disease of both small and large intestine with abscess (HCC) 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 PRO B-TYPE NATRIURETIC PEPTIDE Routine 03/22/2024 6:25 AM CHILD DEVELOPMENT PROFESSOR HEMOGLOBIN A1C Routine 03/22/2024 6:25 AM CHILD DEVELOPMENT PROFESSOR LIPID PANEL Routine 03/22/2024 6:25 AM CHILD DEVELOPMENT PROFESSOR COMPREHENSIVE METABOLIC PANEL Routine 03/22/2024 6:25 AM CHILD DEVELOPMENT PROFESSOR CT ABDOMEN PELVIS WO CONTRAST Schedule Routine, Read Routine (OP Routine) 03/19/2024 10:35 AM CHILD DEVELOPMENT PROFESSOR Colostomy prolapse (HCC) EGFR Routine 02/28/2024 6:21 AM CHILD DEVELOPMENT PROFESSOR High risk medications (not anticoagulants) long-term use Magnesium deficiency Crohn's disease of both small and large intestine with abscess (HCC) 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 BASIC METABOLIC PANEL Routine 02/28/2024 6:21 AM CHILD DEVELOPMENT PROFESSOR High risk medications (not anticoagulants) long-term use Magnesium deficiency Crohn's disease of both small and large intestine with abscess (HCC) 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 MAGNESIUM Routine 02/28/2024 6:21 AM CHILD DEVELOPMENT PROFESSOR Magnesium deficiency Crohn's disease of both small and large intestine with abscess (HCC) 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 COLONOSCOPY REPORT 10/02/2015 from Last 3 Months or Most Recently Relevant to Health Maintenance Results * eGFR (04/22/2024 3:11 AM CDT) eGFR 66 >=60 mL/min/1. 73 m2 Comment: Interpretive Data Reference Interval Normal >/= 90 mL/min/1.73m2 Mildly decreased* 60 - 89 mL/min/1.73m2 Mildly to moderately decreased 45 - 59 mL/min/1.73m2 Moderately to severely decreased 30 - 44 mL/min/1.73m2 Severely decreased 15 - 29 mL/min/1.73m2 Kidney Failure < 15 mL/min/1.73m2 *Relative to young adult level Estimated glomerular filtration rate is determined by the 2020 CKD-EPI equation recommended by the National Kidney Foundation (A Unifying Approach to GFR Estimation: Recommendations of the NKF-ASK Task Force on Reassessing the Inclusion of Race in Diagnosing Kidney Disease, JASN 2020). The CKD-EPI equation should not be used for patients with unstable renal function and has not been validated in children and those over 70. Current interpretive data was last reviewed 2020. Blood 04/22/2024 3:11 AM CDT 04/22/2024 4:54 AM CDT us Odalys Felix MD LAB BLOOD ORDERABLES Final Resu lt [facility] Department of Laboratories [place], [place] [id number] * (ABNORMAL) Differential, auto (04/22/2024 3:11 AM CDT) Neutrophil abs 4.9 1.5 - 6.5 K/cumm Imm gran abs 0.1 0.0 - 0.1 K/cumm [facility] ([facility]) Lymphocyte abs 2.7 0.8 - 3.3 K/cumm [facility] ([facility]) Monocyte abs 0.6 0.2 - 0.8 K/cumm [facility] ([facility]) Eosinophil abs 1.7(H) 0.0 - 0.5 K/cumm [facility] ([facility]) Basophil abs 0.1 0.0 - 0.1 K/cumm [facility] ([facility]) Neutrophil pct 49.4 % [facility] ([facility]) Comment: Interpretive Data Percent cell count reference ranges are not reported, since discordance with absolute values may lead to misinterpretation of CBC data. Current Interpretive Data was last revised on 2017. Imm gran pct 0.8 % [facility] ([facility]) Comment: Interpretive Data Percent cell count reference ranges are not reported, since discordance with absolute values may lead to misinterpretation of CBC data. Current Interpretive Data was last revised on 2017. Lymphocyte pct 26.7 % [facility] ([facility]) Comment: Interpretive Data Percent cell count reference ranges are not reported, since discordance with absolute values may lead to misinterpretation of CBC data. Current Interpretive Data was last revised on 2017. Monocyte pct 5.6 % [facility] ([facility]) Comment: Interpretive Data Percent cell count reference ranges are not reported, since discordance with absolute values may lead to misinterpretation of CBC data. Current Interpretive Data was last revised on 2017. Eosinophil pct 16.7 % [facility] ([place]) Comment: Interpretive Data Percent cell count reference ranges are not reported, since discordance with absolute values may lead to misinterpretation of CBC data. Current Interpretive Data was last revised on 2017. Basophil pct 0.8 % [facility] ([place]) Comment: Interpretive Data Percent cell count reference ranges are not reported, since discordance with absolute values may lead to misinterpretation of CBC data. Current Interpretive Data was last revised on 2017. Blood 04/22/2024 3:11 AM CDT 04/22/2024 3:38 AM CDT us Odalys Felix MD LAB BLOOD ORDERABLES Final Resu lt [facility] ([place]) 1 [facility] Department [place] [address] * (ABNORMAL) CBC with auto differential (04/22/2024 3:11 AM CDT) WBC 9.9 3.8 - 9.9 K/cumm Hgb 10.8(L) 11.9 - 15.5 g/dL [facility] ([place]) Hct 34.6(L) 35.6 - 45.5 % [facility] ([place]) Plt 205 150 - 400 K/cumm [facility] ([place]) MPV 10.3 9.1 - 12.3 fL [facility] ([place]) RBC 3.71(L) 3.90 - 5.20 M/cumm [facility] ([place]) MCV 93.3 81.3 - 96.4 fL [facility] ([place]) MCH 29.1 27.1 - 33.3 pg [facility] ([place]) MCHC 31.2(L) 32.3 - 35.7 g/dL [facility] ([place]) RDW CV 14.5 11.1 - 14.9 % [facility] ([place]) RDW SD 49.5(H) 35.7 - 48.1 fL [facility] ([place]) NRBC abs 0.00 0.00 - 0.01 K/cumm [facility] ([place]) Blood 04/22/2024 3:11 AM CDT 04/22/2024 3:38 AM CDT us Odalys Felix MD LAB BLOOD ORDERABLES Final Resu lt [facility] ([place]) 1 [facility] Department [place] [address] * Phosphorus (04/22/2024 3:11 AM CDT) Pathologist [facility] Phosphorus, pl 4.2 2.3 - 4.5 mg/dL Blood 04/22/2024 3:11 AM CDT 04/22/2024 4:54 AM CDT Odalys Felix MD LAB BLOOD ORDERABLES Final Resu lt [facility] ([place]) 1 [facility] [place] [address] * Magnesium (04/22/2024 3:11 AM CDT) [facility] Magnesium 1.7 1.4 - 2.5 mg/dL Blood 04/22/2024 3:11 AM CDT 04/22/2024 4:54 AM CDT Odalys Felix MD LAB BLOOD ORDERABLES Final Resu lt Performing Organization Address [facility] Co de Phone Number [facility] AJ ([place]) 1 [facility] [place] [address] * (ABNORMAL) Basic metabolic panel (04/22/2024 3:11 AM CDT) [facility] Sodium 140 135 - 145 mmol/L Potassium, pl 3.6 3.3 - 4.9 mmol/L [facility] ([place]) Chloride 107 97 - 110 mmol/L [facility] ([place]) CO2 20(L) 22 - 32 mmol/L [facility] ([place]) Anion gap 13 2 - 15 mmol/L [facility] ([place]) BUN 20 6 - 25 mg/dL [facility] ([place]) Creatinine 1.01 0.60 - 1.10 mg/dL [facility] ([place]) Glucose 96 70 - 199 mg/dL [facility] ([place]) Comment: Interpretive Data Fasting glucose >/= 126 mg/dl is diagnostic for diabetes. Fasting is defined as no caloric intake for at least 8 hours. Fasting glucose between 100 mg/dl to 125 mg/dl is diagnostic of prediabetes. In a patient with classic symptoms of hyperglycemia or hyperglycemic crisis, a random glucose >/= 200 mg/dl is diagnostic for diabetes. In the absence of unequivocal hyperglycemia, results should be confirmed by repeat testing. The classification and Diagnosis of Diabetes Diabetes Care 2021; 46: S19-S40. Current interpretive data was last revised 2022. Calcium 8.1(L) 8.5 - 10.3 mg/dL [facility] ([place]) Blood 04/22/2024 3:11 AM CDT 04/22/2024 4:54 AM CDT us Odalys Felix MD LAB BLOOD ORDERABLES Final Resu lt [facility] ([facility] 1 [facility] Department [place] [address] * (ABNORMAL) Urinalysis reflex to microscopic and culture Urine (04/21/2024 4:31 AM CDT) Color, ur Yellow Yellow Clarity, ur Turbid(A) Clear [facility] ([place]) Specific gravity, ur 1.022 1.003 - 1.030 [facility] ([place]) pH, urine 6.0 [facility] ([place]) Comment: Interpretive Data U rine pH is affected by diet, medications, systemic acid-base disturbances, and renal tubular function. pH may affect urinary stone formation. For example, urine pH below 6.0 may help reduce the tendency for calcium phosphate stones and pH greater than 6.0 may reduce the tendency for uric acid stone formation. Source: [facility] Current Interpretive Data was last revised on 2017 Protein, ur ql 1+(A) Negative [facility] ([place]) Glucose, ur ql Negative Negative [facility] ([place]) Ketones, ur Negative Negative [facility] ([place]) Bilirubin, ur Negative Negative [facility] ([place]) Blood, ur Negative Negative [facility] ([place]) Urobilinogen, ur <2.0 <2.0 mg/dL [facility] ([place]) Nitrite, ur Negative Negative [facility] ([place]) Leukocyte esterase, ur 1+(A) Negative [facility] ([place]) UA reflex comment Reflex to microscopic UA will be performed. [facility] ([place]) Urine 04/21/2024 4:31 AM CDT 04/21/2024 4:35 AM CDT Edith Wiggins MD LAB MICROBIOLOGY - GENERA L ORDERABLES Final Result Performing Organization Address [facility] Co de Phone Number MARTITA AJ ([place]) 1 [facility] [place] [address] * (ABNORMAL) Urinalysis, microscopic only (04/21/2024 4:31 AM CDT) WBC, ur 6-10(A) 0 - 5 /HPF RBC, ur 0-2 0 - 2 /HPF [facility]ITA AJ ([place]) Epithelial cells, squamous, ur 11-20(A) 0 - 5 /HPF [facility] AJ ([place]) Bacteria, ur Trace(A) [facility] AJ ([place]) Culture Reflex Comment Reflex conditions for urine culture (WBC >10) not met. [facility]AN MARIE ([place]) Urine 04/21/2024 4:31 AM CDT 04/21/2024 4:35 AM CDT Edith Wiggins MD LAB URINE ORDERABLES Amalia l Result Performing Organization Address [facility] Co de Phone Number [facility]ITA AJ ([place]) 1 [facility] [place] [address] * CT Abdomen Pelvis WO Contrast (04/21/2024 3:29 AM CDT) Anatomical Region Laterality Modality Body N/A Computed Tomogra phy 04/21/2024 3:38 AM CDT Narrative 04/21/2024 3:43 AM CDT EXAM DESCRIPTION: CT ABDOMEN PELVIS WO CONTRAST REASON FOR STUDY: pain Pain and bleeding from stoma, hx of chron's with multiple bowel surgeries, yakov, appy, histo TECHNIQUE: CT scan of the abdomen and pelvis performed without intravenous and without oral contrast using helical scanning technique. Reconstructed coronal and sagittal MPR images reviewed. All images stored on PACS. Automated exposure control was used as a dose optimization technique for this examination. COMPARISON: 03/19/2024 FINDINGS: LOWER CHEST: Coarse linear opacity in the right middle lobe unchanged. Lung bases otherwise clear. Heart size normal. No effusion. LIVER/BILIARY: Liver unremarkable. Biliary tree normal in caliber. GALLBLADDER: Absent. SPLEEN: Normal. PANCREAS: Normal. ADRENAL GLANDS: Normal. KIDNEYS/URINARY TRACT: Unremarkable. GI: Small amount of contrast in the stomach. Distal esophagus unremarkable. Small bowel unremarkable. Colon within the parastomal hernia reveals no inflammation or other acute abnormality. Moderate stool throughout the remainder of the colon. OTHER ABDOMINAL/PELVIS: Major vascular structures are normal in caliber. No enlarged lymph node or free fluid. MSK: Mild lower thoracic disc disease. Mild hip and SI joint arthrosis. BODY WALL: Small labial cyst. Mild skin thickening around the stoma similar to the recent prior. Small fat containing right upper quadrant hernia. IMPRESSION: Mild skin thickening around the stoma appears similar to the 03/19/2024 prior. No bowel inflammation, abscess, or other new/acute abnormality identified. THIS IS AN ELECTRONICALLY VERIFIED FINAL REPORT 04/21/2024 3:43 AM - Electronically signed by Guru Salinas M.D. AR: TYE Report ID: [id number] Reading Location: [id number] Procedure Note Guru Salinas MD - 04/21/2024 EXAM DESCRIPTION: CT ABDOMEN PELVIS WO CONTRAST REASON FOR STUDY: pain Pain and bleeding from stoma, hx of chron's with multiple bowel surgeries, yakov, appy, histo TECHNIQUE: CT scan of the abdomen and pelvis performed without intravenousand without oral contrast using helical scanning technique. Reconstructed coronal and sagittal MPR images reviewed. All images stored on PACS.Automated exposure control was used as a dose optimization technique for this examination. COMPARISON: 03/19/2024 FINDINGS: LOWER CHEST: Coarse linear opacity in the right middle lobe unchanged.Lung bases otherwise clear. Heart size normal. No effusion. LIVER/BILIARY: Liver unremarkable. Biliary tree normal in caliber. GALLBLADDER: Absent. SPLEEN: Normal. PANCREAS: Normal. ADRENAL GLANDS: Normal. KIDNEYS/URINARY TRACT: Unremarkable. GI: Small amount of contrast in the stomach. Distal esophagusunremarkable. Small bowel unremarkable. Colon within the parastomal hernia reveals no inflammation or other acute abnormality. Moderate stool throughout the remainder of the colon. OTHER ABDOMINAL/PELVIS: Major vascular structures are normal in caliber.No enlarged lymph node or free fluid. MSK: Mild lower thoracic disc disease. Mild hip and SI joint arthrosis. BODY WALL: Small labial cyst. Mild skin thickening around the stomasimilar to the recent prior. Small fat containing right upper quadrant hernia. IMPRESSION: Mild skin thickening around the stoma appears similar to the 03/19/2024prior. No bowel inflammation, abscess, or other new/acute abnormalityidentified. THIS IS AN ELECTRONICALLY VERIFIED FINAL REPORT 04/21/2024 3:43 AM - Electronically signed by Guru Salinas M.D. AR: TYE Report ID: [id number] Reading Location: [id number] Edith Wiggins MD IMG CT PROCEDURES Final R esult * Sepsis Lactate w/ Reflex (04/21/2024 1:49 AM CHILD DEVELOPMENT PROFESSOR) Sepsis Lactate 1.3 0.7 - 2.0 mmol/L Blood 04/21/2024 1:49 AM CHILD DEVELOPMENT PROFESSOR 04/21/2024 1:59 AM CHILD DEVELOPMENT PROFESSOR Edith Wiggins MD LAB BLOOD ORDERABLES Amalia l Result [facility] ([place]) 1 [facility] Department [place] [address] * Blood culture Blood Peripheral (04/21/2024 1:49 AM CHILD DEVELOPMENT PROFESSOR) Report Final Report: No growth Comment:Testing performed by : [facility], [address] [facility], [place]., [address] Blood (Peripheral) 04/21/2024 1:49 AM CHILD DEVELOPMENT PROFESSOR 04/21/2024 5:19 AM CDT Narrative MARTITA AJ ([place]) - 04/25/2024 7:00 AM CDT From a different site than #1. Draw Blood cultures before administration of Antibiotics Collection->Peripheral 1. Blood cultures are incubated for 4 days on a continuously monitored blood culture system. The first report of a negative culture is issued within 24 hours of receipt of the specimen in the laboratory. 2. Positive culture results are reported as soon as they are detected. 3. The most important factor for detection of microbes in the setting of bloodstream infection is the volume of blood submitted for culture. Failure to collect an optimal blood volume can result in false negative blood cultures. 4. For pediatric patients, the recommended blood volume to collect follows a weight based strategy. See the electronic test catalog for collection instructions. 5. For positive blood cultures, a rapid molecular test may be performed for organism identification using the geetha ePlex blood culture identification panel for gram positive (BCID-GP) and gram negative (BCID-GN) organisms. This nucleic acid amplification test detects microbial DNA in positive blood culture broth. This assay has been cleared by the [place] Food and Drug Administration and its performance characteristics have been verified by the [facility] Microbiology Laboratory. For questions about this culture, contact the Microbiology Laboratory at [phone]. Interpretive data was last revised on 23. us Edith Wiggins MD LAB MICROBIOLOGY - GENERA L ORDERABLES Final Result MARTITA HUERTA) 1 [facility] Department [place] [address] * Blood culture Blood Peripheral (04/21/2024 1:49 AM CHILD DEVELOPMENT PROFESSOR) Report Final Report: No growth Comment:Testing performed by : [facility], 1 [facility] [place]., [address] Blood (Peripheral) 04/21/2024 1:49 AM CHILD DEVELOPMENT PROFESSOR 04/21/2024 5:19 AM CDT Narrative MARTITA AJ ([place]) - 04/25/2024 7:00 AM CDT Draw Blood cultures before administration of Antibiotics Collection->Peripheral 1. Blood cultures are incubated for 4 days on a continuously monitored blood culture system. The first report of a negative culture is issued within 24 hours of receipt of the specimen in the laboratory. 2. Positive culture results are reported as soon as they are detected. 3. The most important factor for detection of microbes in the setting of bloodstream infection is the volume of blood submitted for culture. Failure to collect an optimal blood volume can result in false negative blood cultures. 4. For pediatric patients, the recommended blood volume to collect follows a weight based strategy. See the electronic test catalog for collection instructions. 5. For positive blood cultures, a rapid molecular test may be performed for organism identification using the geetha ePlex blood culture identification panel for gram positive (BCID-GP) and gram negative (BCID-GN) organisms. This nucleic acid amplification test detects microbial DNA in positive blood culture broth. This assay has been cleared by the [place] Food and Drug Administration and its performance characteristics have been verified by the [facility]biology Laboratory. For questions about this culture, contact the Microbiology Laboratory at [phone]. Interpretive data was last revised on 23. us Edith Wiggins MD LAB MICROBIOLOGY - GENERA L ORDERABLES Final Result [facility] ([place]) 5 [facility] Department [place] [address] * eGFR (04/20/2024 9:56 PM CHILD DEVELOPMENT PROFESSOR) eGFR 64 >=60 mL/min/1. 73 m2 Comment: Interpretive Data Reference Interval Normal >/= 90 mL/min/1.73m2 Mildly decreased* 60 - 89 mL/min/1.73m2 Mildly to moderately decreased 45 - 59 mL/min/1.73m2 Moderately to severely decreased 30 - 44 mL/min/1.73m2 Severely decreased 15 - 29 mL/min/1.73m2 Kidney Failure < 15 mL/min/1.73m2 *Relative to young adult level Estimated glomerular filtration rate is determined by the 2020 CKD-EPI equation recommended by the National Kidney Foundation (A Unifying Approach to GFR Estimation: Recommendations of the NKF-ASK Task Force on Reassessing the Inclusion of Race in Diagnosing Kidney Disease, JASN 2021). The CKD-EPI equation should not be used for patients with unstable renal function and has not been validated in children and those over 70. Current interpretive data was last reviewed 2020. Blood 04/20/2024 9:56 PM CHILD DEVELOPMENT PROFESSOR 04/20/2024 10:01 PM CHILD DEVELOPMENT PROFESSOR us Kerri Broderick DO LAB BLOOD ORDERABLES Fin al Result [facility] ([place]) 1 [facility] Department [place] [address] * (ABNORMAL) Differential, auto (04/20/2024 9:56 PM CHILD DEVELOPMENT PROFESSOR) Neutrophil abs 11.4(H) 1.5 - 6.5 K/cumm Imm gran abs 0.2(H) 0.0 - 0.1 K/cumm [facility] ([place]) Lymphocyte abs 3.3 0.8 - 3.3 K/cumm [facility] ([place]) Monocyte abs 1.0(H) 0.2 - 0.8 K/cumm [facility] ([place]) Eosinophil abs 2.2(H) 0.0 - 0.5 K/cumm [facility] ([place]) Basophil abs 0.1 0.0 - 0.1 K/cumm [facility] ([place]) Neutrophil pct 62.4 % [facility] ([place]) Comment: Interpretive Data Percent cell count reference ranges are not reported, since discordance with absolute values may lead to misinterpretation of CBC data. Current Interpretive Data was last revised on 2017. Imm gran pct 1.2 % [facility] ([place]) Comment: Interpretive Data Percent cell count reference ranges are not reported, since discordance with absolute values may lead to misinterpretation of CBC data. Current Interpretive Data was last revised on 2017. Lymphocyte pct 18.2 % [facility] ([place]) Comment: Interpretive Data Percent cell count reference ranges are not reported, since discordance with absolute values may lead to misinterpretation of CBC data. Current Interpretive Data was last revised on 2017. Monocyte pct 5.5 % [facility] ([place]) Comment: Interpretive Data Percent cell count reference ranges are not reported, since discordance with absolute values may lead to misinterpretation of CBC data. Current Interpretive Data was last revised on 2017. Eosinophil pct 12.2 % [facility] ([place]) Comment: Interpretive Data Percent cell count reference ranges are not reported, since discordance with absolute values may lead to misinterpretation of CBC data. Current Interpretive Data was last revised on 2017. Basophil pct 0.5 % [facility] ([place]) Comment: Interpretive Data Percent cell count reference ranges are not reported, since discordance with absolute values may lead to misinterpretation of CBC data. Current Interpretive Data was last revised on 2017. Blood 04/20/2024 9:56 PM CHILD DEVELOPMENT PROFESSOR 04/20/2024 10:01 PM CHILD DEVELOPMENT PROFESSOR us Kerri Broderick DO LAB BLOOD ORDERABLES Fin al Result [facility] ([place]) 1 [facility] Department [place] [address] * (ABNORMAL) CBC with auto differential (04/20/2024 9:56 PM CHILD DEVELOPMENT PROFESSOR) WBC 18.2(H) 3.8 - 9.9 K/cumm Hgb 11.3(L) 11.9 - 15.5 g/dL [facility] ([place]) Hct 35.0(L) 35.6 - 45.5 % [facility] ([place]) Plt 251 150 - 400 K/cumm [facility] ([place]) MPV 10.4 9.1 - 12.3 fL [facility] ([place]) RBC 3.92 3.90 - 5.20 M/cumm [facility] ([place]) MCV 89.3 81.3 - 96.4 fL [facility] ([place]) MCH 28.8 27.1 - 33.3 pg [facility] ([place]) MCHC 32.3 32.3 - 35.7 g/dL [facility] ([place]) RDW CV 14.5 11.1 - 14.9 % [facility] ([place]) RDW SD 46.6 35.7 - 48.1 fL [facility] ([place]) NRBC abs 0.00 0.00 - 0.01 K/cumm [facility] Blood 04/20/2024 9:56 PM CHILD DEVELOPMENT PROFESSOR 04/20/2024 10:01 PM CHILD DEVELOPMENT PROFESSOR us Kerri Broderick DO LAB BLOOD ORDERABLES Fin al Result [facility] ([place]) 1 [facility] Department [place] [address] * (ABNORMAL) Comprehensive metabolic panel (04/20/2024 9:56 PM CHILD DEVELOPMENT PROFESSOR) Sodium 138 135 - 145 mmol/L Potassium, pl 3.0(C) 3.3 - 4.9 mmol/L [facility] Comment:Critical Result call ed by [id number] at 2024-04-20 22:49:41. Result Read Back by Stacey Rider RN ER Chloride 102 97 - 110 mmol/L [facility] ([place]) CO2 21(L) 22 - 32 mmol/L [facility] ([place]) Anion gap 15 2 - 15 mmol/L [facility] BUN 27(H) 6 - 25 mg/dL [facility] Creatinine 1.03 0.60 - 1.10 mg/dL [facility] Glucose 106 70 - 199 mg/dL [facility] ([facility] Comment: Interpretive Data Fasting glucose >/= 126 mg/dl is diagnostic for diabetes. Fasting is defined as no caloric intake for at least 8 hours. Fasting glucose between 100 mg/dl to 125 mg/dl is diagnostic of prediabetes. In a patient with classic symptoms of hyperglycemia or hyperglycemic crisis, a random glucose >/= 200 mg/dl is diagnostic for diabetes. In the absence of unequivocal hyperglycemia, results should be confirmed by repeat testing. The classification and Diagnosis of Diabetes Diabetes Care 2021; 46: S19-S40. Current interpretive data was last revised 2022. Calcium 7.4(L) 8.5 - 10.3 mg/dL [facility] ([place]) Bilirubin, total <0.2 0.1 - 1.2 mg/dL [facility] ([place]) Protein, pl 7.7 6.5 - 8.5 g/dL [facility] ([place]) Albumin 3.7 3.5 - 5.0 g/dL [facility] ([place]) Alk phos 179(H) 40 - 130 Units/L [facility] ([place]) ALT 18 7 - 45 Units/L [facility] ([place]) AST 16 10 - 45 Units/L [facility] ([place]) Comment:Slightly Hemolyzed S pecimen Blood 04/20/2024 9:56 PM CHILD DEVELOPMENT PROFESSOR 04/20/2024 10:01 PM CHILD DEVELOPMENT PROFESSOR us Kerri Broderick DO LAB BLOOD ORDERABLES Fin al Result Performing Organization Address [facility]/ZIP Co de Phone Number [facility] ([place]) 1 [facility] [place] [address] * Calprotectin, fecal (04/16/2024 6:39 AM CHILD DEVELOPMENT PROFESSOR) Pathologist [facility] Calprotectin, fecal <50.0 <50.0 (Normal) mcg/g [facility] Comment: Test Performed by: [place] [address] Inspector Exhaust Emissions: Leonardo Gerardo Ph.D.; CLIA# [id number] Stool 04/16/2024 6:39 AM CHILD DEVELOPMENT PROFESSOR 04/16/2024 6:43 AM CHILD DEVELOPMENT PROFESSOR us Bravo Macdonald MD LAB BODY FLUIDS AND STOOLS ORDERABLES Final Result [facility] ([place]) 1 [facility] [place] [address] [facility] ref [facility] * eGFR (04/16/2024 6:32 AM CHILD DEVELOPMENT PROFESSOR) Pathologist [facility] eGFR 64 >=60 mL/min/1. 73 m2 Comment: Interpretive Data Reference Interval Normal >/= 90 mL/min/1.73m2 Mildly decreased* 60 - 89 mL/min/1.73m2 Mildly to moderately decreased 45 - 59 mL/min/1.73m2 Moderately to severely decreased 30 - 44 mL/min/1.73m2 Severely decreased 15 - 29 mL/min/1.73m2 Kidney Failure < 15 mL/min/1.73m2 *Relative to young adult level Estimated glomerular filtration rate is determined by the 2020 CKD-EPI equation recommended by the National Kidney Foundation (A Unifying Approach to GFR Estimation: Recommendations of the NKF-ASK Task Force on Reassessing the Inclusion of Race in Diagnosing Kidney Disease, JASN 2020). The CKD-EPI equation should not be used for patients with unstable renal function and has not been validated in children and those over 70. Current interpretive data was last reviewed 2020. Blood 04/16/2024 6:32 AM CHILD DEVELOPMENT PROFESSOR 04/16/2024 6:43 AM CHILD DEVELOPMENT PROFESSOR us Gil Mcmanus MD LAB BLOOD ORDERABLES Final Resul t [facility] [place] 1 [facility] Department [place] [address] * Pro B-type natriuretic peptide (04/16/2024 6:32 AM CHILD DEVELOPMENT PROFESSOR) NT-proBNP 167 <=300 pg/mL Comment: Interpretive Comments: A. Dyspnea in Acute Care Setting All Ages: < 300 pg/ml, acute heart failure unlikely. < 50 yrs: 300 - 450 pg/ml, further investigation warranted. > 450 pg/ml, acute heart failure likely. 50 - 74 yrs: 300 - 900 pg/ml, further investigation warranted. > 900 pg/ml, acute heart failure likely . > or = 75 yrs: 450 - 1800 pg/ml, further investigation warranted. > 1800 pg/ml, acute heart failure likely. B. Non-acute Setting < 75 yrs < 125 pg/ml, rules out heart failure. > or = 125 pg/ml, further investigation warranted. > or = 75 yrs < 450 pg/ml, rules out heart failure. > or = 450 pg/ml, further investigation warranted. - Knowledge of each individual patient's NT-proBNP range may be more useful than using similar cut-points for every patient. Please note that marked elevations in NT-proBNP levels may be observed in state other than Left Ventricular Congestive Failure, including: acute coronary syndromes, right heart strain/failure (including pulmonary embolism and cor pulmonale), critical illness, renal failure, as well as advanced age. - References: 1. Sriram PRINCE et.al. Eur Heart J. 2006:27:330-337. 2. Keara RW, Fang AM. J. AM Doron Cardiol: Cardiovasc Imag. 2009;2: 216- 225. Interpretive Data Last Revised Date: 2017. Blood 04/16/2024 6:32 AM CHILD DEVELOPMENT PROFESSOR 04/16/2024 6:43 AM CHILD DEVELOPMENT PROFESSOR Gil Mcmanus MD LAB BLOOD ORDERABLES Final Resul t Performing Organization Address City/[facility]/ZIP Co de Phone Number MARTITA AJ ([place]) 1 [facility] [place] [address] * (ABNORMAL) Magnesium (04/16/2024 6:32 AM CHILD DEVELOPMENT PROFESSOR) Magnesium 1.1(L) 1.4 - 2.5 mg/dL Blood 04/16/2024 6:32 AM CHILD DEVELOPMENT PROFESSOR 04/16/2024 6:43 AM CHILD DEVELOPMENT PROFESSOR Gil Mcmanus MD LAB BLOOD ORDERABLES Final Resul t Performing Organization Address City/[facility]/ZIP Co de Phone Number MARTITA AJ (MONROE) [address] [place] [address] [place] [address] * (ABNORMAL) Comprehensive metabolic panel (04/16/2024 6:32 AM CHILD DEVELOPMENT PROFESSOR) Sodium 139 135 - 145 mmol/L Potassium, pl 3.3 3.3 - 4.9 mmol/L [facility] (JÚNIOR) Chloride 107 97 - 110 mmol/L [facility] ([place]) CO2 16(L) 22 - 32 mmol/L [facility] ([place]) Anion gap 16(H) 2 - 15 mmol/L [facility] ([place]) BUN 22 6 - 25 mg/dL [facility] ([place]) Creatinine 1.03 0.60 - 1.10 mg/dL [facility] ([place]) Glucose 128 70 - 199 mg/dL [facility] (JÚNI[place]) Comment: Interpretive Data Fasting glucose >/= 126 mg/dl is diagnostic for diabetes. Fasting is defined as no caloric intake for at least 8 hours. Fasting glucose between 100 mg/dl to 125 mg/dl is diagnostic of prediabetes. In a patient with classic symptoms of hyperglycemia or hyperglycemic crisis, a random glucose >/= 200 mg/dl is diagnostic for diabetes. In the absence of unequivocal hyperglycemia, results should be confirmed by repeat testing. The classification and Diagnosis of Diabetes Diabetes Care 2021; 46: S19-S40. Current interpretive data was last revised 2022. Calcium 7.3(L) 8.5 - 10.3 mg/dL [facility] ([place]) Bilirubin, total <0.2 0.1 - 1.2 mg/dL [facility] ([place]) Protein, pl 7.6 6.5 - 8.5 g/dL [facility] ([place]) Albumin 3.7 3.5 - 5.0 g/dL [facility] ([place]) Alk phos 201(H) 40 - 130 Units/L [facility] ([place]) ALT 23 7 - 45 Units/L [facility] ([place]) AST 18 10 - 45 Units/L [facility] (J[facility]NI[place]) Comment: Hemolysis present. Results may be affected. Slightly Hemolyzed Specimen Blood 04/16/2024 6:32 AM CHILD DEVELOPMENT PROFESSOR 04/16/2024 6:43 AM CHILD DEVELOPMENT PROFESSOR us Gil Mcmanus MD LAB BLOOD ORDERABLES Final Resul t [facility] (JÚNIOR) 1 [facility] Department of Laboratories [place], [place] [id number] * eGFR (04/03/2024 6:49 AM CHILD DEVELOPMENT PROFESSOR) eGFR 63 >=60 mL/min/1. 73 m2 Comment: Interpretive Data Reference Interval Normal >/= 90 mL/min/1.73m2 Mildly decreased* 60 - 89 mL/min/1.73m2 Mildly to moderately decreased 45 - 59 mL/min/1.73m2 Moderately to severely decreased 30 - 44 mL/min/1.73m2 Severely decreased 15 - 29 mL/min/1.73m2 Kidney Failure < 15 mL/min/1.73m2 *Relative to young adult level Estimated glomerular filtration rate is determined by the 2020 CKD-EPI equation recommended by the National Kidney Foundation (A Unifying Approach to GFR Estimation: Recommendations of the NKF-ASK Task Force on Reassessing the Inclusion of Race in Diagnosing Kidney Disease, JASN 2020). The CKD-EPI equation should not be used for patients with unstable renal function and has not been validated in children and those over 70. Current interpretive data was last reviewed 2020. Blood 04/03/2024 6:49 AM CHILD DEVELOPMENT PROFESSOR 04/03/2024 6:55 AM CHILD DEVELOPMENT PROFESSOR us Gil Mcmanus MD LAB BLOOD ORDERABLES Final Resul t [facility] [place]) 1 [facility] Department [place] [address] * Pro B-type natriuretic peptide (04/03/2024 6:49 AM CHILD DEVELOPMENT PROFESSOR) NT-proBNP 54 <=300 pg/mL Comment: Interpretive Comments: A. Dyspnea in Acute Care Setting All Ages: < 300 pg/ml, acute heart failure unlikely. < 50 yrs: 300 - 450 pg/ml, further investigation warranted. > 450 pg/ml, acute heart failure likely. 50 - 74 yrs: 300 - 900 pg/ml, further investigation warranted. > 900 pg/ml, acute heart failure likely . > or = 75 yrs: 450 - 1800 pg/ml, further investigation warranted. > 1800 pg/ml, acute heart failure likely. B. Non-acute Setting < 75 yrs < 125 pg/ml, rules out heart failure. > or = 125 pg/ml, further investigation warranted. > or = 75 yrs < 450 pg/ml, rules out heart failure. > or = 450 pg/ml, further investigation warranted. - Knowledge of each individual patient's NT-proBNP range may be more useful than using similar cut-points for every patient. Please note that marked elevations in NT-proBNP levels may be observed in state other than Left Ventricular Congestive Failure, including: acute coronary syndromes, right heart strain/failure (including pulmonary embolism and cor pulmonale), critical illness, renal failure, as well as advanced age. - References: 1. Sriram PRINCE et.al. Eur Heart J. 2006:27:330-337. 2. Keara RW, Fang AM. J. AM Doron Cardiol: Cardiovasc Imag. 2009;2: 216- 225. Interpretive Data Last Revised Date: 2017. Blood 04/03/2024 6:49 AM CHILD DEVELOPMENT PROFESSOR 04/03/2024 6:55 AM CHILD DEVELOPMENT PROFESSOR Gil Mcmanus MD LAB BLOOD ORDERABLES Final Resul t Performing Organization Address [facility] Co de Phone Number MARTITA AJ (MONROE) 1 [facility] [place] [address] * (ABNORMAL) Hemoglobin A1c (04/03/2024 6:49 AM CHILD DEVELOPMENT PROFESSOR) Hgb A1C 5.8(H) 4.0 - 5.6 % Estimated Average Glucose 120 mg/dL MARTITA AJ (JÚNIOR) Comment: The ADA recommends reporting an estimated Average Glucose (eAG) with all Hemoglobin A1c results using the equation derived from a study of 507 normal and diabetic adults. Minority populations were underrepresented and children were not included. (Diabetes Care 31:9025-4915, 2008). The eAG is not equivalent to a fasting glucose. Blood 04/03/2024 6:49 AM CHILD DEVELOPMENT PROFESSOR 04/03/2024 6:55 AM CHILD DEVELOPMENT PROFESSOR Gil Mcmanus MD LAB BLOOD ORDERABLES Final Resul t Performing Organization Address City/[facility] Co de Phone Number MARTITA AJ (MONROE) 1 [facility] [place] [address] * (ABNORMAL) Lipid panel (04/03/2024 6:49 AM CHILD DEVELOPMENT PROFESSOR) Cholesterol 199 30 - 199 mg/dL Comment: Interpretive Data Ages < or = 19 years Acceptable: <170 mg/dL Borderline high: 170-199 mg/dL High: >or= 200 mg/dL Ages > or = 20 years Desirable: <200 mg/dL Borderline high: 200-239 mg/dL High: >or= 240 mg/dL Literature References: 1. Expert Panel on Integrated Guidelines for Cardiovascular Health and Risk Reduction in Children and Adolescents. Pediatrics 2011;128:S213 2. NCEP Expert Panel. Circulation 2004;110:227 Current Interpretive Data was last revised on 2017. Triglycerides 361(H) <=149 mg/dL MARTITA AJ (JÚNIOR) Comment: Interpretive Data Ages < or = 9 years Acceptable: <75 mg/dL Borderline high: 75-99 mg/dL High: >or= 100 mg/dL Ages 10 to 20 years Acceptable: <90 mg/dL Borderline high: 90-129 mg/dL High: >or= 130 mg/dL Ages > or = 20 years Desirable: <150 mg/dL Borderline high: 150-199 mg/dL High: 200-499 mg/dL Very high: >or= 499 mg/dL Literature References: 1. Expert Panel on Integrated Guidelines for Cardiovascular Health and Risk Reduction in Children and Adolescents. Pediatrics 2011;128:S213 2. NCEP Expert Panel. Circulation 2004;110:227 Current Interpretive Data was last revised on 2017. HDL 79 >=40 mg/dL MARTITA AJ (JÚNIOR) Comment: Interpretive Data Ages < or = 19 years Acceptable: >45 mg/dL Borderline low: 40-45 mg/dL Low: <40 mg/dL Ages > or = 20 years Desirable: >or= 60 mg/dL Low: <40 mg/dL Literature References: 1. Expert Panel on Integrated Guidelines for Cardiovascular Health and Risk Reduction in Children and Adolescents. Pediatrics 2011;128:S213 2. NCEP Expert Panel. Circulation 2004;110:227 Current Interpretive Data was last revised on 2017. LDL, calculated 65 <=129 mg/dL MARTITA AJ (JÚNIOR) Comment: Interpretive Data Ages < or = 19 years Acceptable: <110 mg/dL Borderline high: 110-129 mg/dL High: >or= 130 mg/dL Ages > or = 20 years Optimal: <100 mg/dL Near optimal: 100-129 mg/dL Borderline high: 130-159 mg/dL High: >160 mg/dL Calculated using the Benji LDL-C estimating equation. This equation was implemented on 2023. Prior to this date LDL-C was estimated using the Friedewald equation. Literature References: 1. Expert Panel on Integrated Guidelines for Cardiovascular Health and Risk Reduction in Children and Adolescents. Pediatrics 2011;128:S213 2. NCEP Expert Panel. Circulation 2004;110:227 3. Benji Szymanski et al. RANDOLPH Cardiol. 2020 June 13;5(5):540-548. doi: [email or web address] Current Interpretive Data was last revised on 2023. Non-HDL Cholesterol 120 mg/dL MARTITA AJ (JÚNIOR) Comment: Interpretive Data Ages < or = 19 years Acceptable: <120 mg/dL Borderline high: 120-144 mg/dL High: >145 mg/dL Ages > or = 20 years When triglycerides are >200 mg/dL, Non-HDL cholesterol is a secondary target of therapy with treatment goals that are 30 mg/dL greater than the LDL cholesterol target. Literature References: 1. Expert Panel on Integrated Guidelines for Cardiovascular Health and Risk Reduction in Children and Adolescents. Pediatrics 2011;128:S213 2. NCEP Expert Panel. Circulation 2004;110:227 Current Interpretive Data was last revised on 2017. Chol/HDL ratio 3 JENNINE Felix AJ (JÚNIOR) Blood 04/03/2024 6:49 AM CHILD DEVELOPMENT PROFESSOR 04/03/2024 6:55 AM CHILD DEVELOPMENT PROFESSOR Gil Mcmanus MD LAB BLOOD ORDERABLES Final Resul t MARTITA AJ (JÚNIOR) 1 [facility] Department [place] [address] * (ABNORMAL) Comprehensive metabolic panel (04/03/2024 6:49 AM CHILD DEVELOPMENT PROFESSOR) Sodium 140 135 - 145 mmol/L Potassium, pl 3.5 3.3 - 4.9 mmol/L [facility] (JÚNIOR) Chloride 109 97 - 110 mmol/L [facility] (JÚNIOR) CO2 18(L) 22 - 32 mmol/L [facility] (JÚNIOR) Anion gap 13 2 - 15 mmol/L [facility] (JÚNIOR) BUN 31(H) 6 - 25 mg/dL [facility] (JÚNIOR) Creatinine 1.05 0.60 - 1.10 mg/dL [facility] (JÚNIOR) Glucose 120 70 - 199 mg/dL [facility] (JÚNIOR) Comment: Interpretive Data Fasting glucose >/= 126 mg/dl is diagnostic for diabetes. Fasting is defined as no caloric intake for at least 8 hours. Fasting glucose between 100 mg/dl to 125 mg/dl is diagnostic of prediabetes. In a patient with classic symptoms of hyperglycemia or hyperglycemic crisis, a random glucose >/= 200 mg/dl is diagnostic for diabetes. In the absence of unequivocal hyperglycemia, results should be confirmed by repeat testing. The classification and Diagnosis of Diabetes Diabetes Care 2021; 46: S19-S40. Current interpretive data was last revised 2022. Calcium 8.0(L) 8.5 - 10.3 mg/dL [facility] (JÚNIOR) Bilirubin, total <0.2 0.1 - 1.2 mg/dL [facility] (JÚNIOR) Protein, pl 8.0 6.5 - 8.5 g/dL [facility] (JÚNIOR) Albumin 4.1 3.5 - 5.0 g/dL [facility] (JÚNIOR) Alk phos 223(H) 40 - 130 Units/L [facility] (JÚNIOR) ALT 12 7 - 45 Units/L [facility] (JÚNIOR) AST 12 10 - 45 Units/L [facility] (JÚNIOR) Blood 04/03/2024 6:49 AM CHILD DEVELOPMENT PROFESSOR 04/03/2024 6:55 AM CHILD DEVELOPMENT PROFESSOR us Gil Mcmanus MD LAB BLOOD ORDERABLES Final Resul t [facility] (JÚNIOR) 1 [facility] Department [place] [address] * XR Chest PA Lateral 2 Views (03/22/2024 6:38 AM CHILD DEVELOPMENT PROFESSOR) Anatomical Region Laterality Modality Body, Chest N/A Computed Radiogr aphy 03/25/2024 3:09 PM CHILD DEVELOPMENT PROFESSOR Narrative 03/25/2024 3:13 PM CHILD DEVELOPMENT PROFESSOR EXAM DESCRIPTION: XR CHEST PA LATERAL 2 VIEWS REASON FOR STUDY: I50.9 Fever/cough/congestion 3 days + covid and flu TECHNIQUE: 2 radiographic view(s) of the chest. COMPARISON: 12/06/2023 FINDINGS: No consolidation, pulmonary edema, pleural effusion or pneumothorax. Indeterminate 9 mm nodular opacity seen overlying the right 6th rib. Heart size and mediastinal contours are stable. IMPRESSION: 1. No acute cardiopulmonary abnormality is seen. 2. Possible subcentimeter right upper lobe pulmonary nodule. Recommend follow-up chest CT for further evaluation. THIS IS AN ELECTRONICALLY VERIFIED FINAL REPORT 03/25/2024 3:13 PM - Electronically signed by Neville Mejia M.D. AG: ENRIQUE Report ID: [id number] Reading Location: [id number] Procedure Note Neville Mejia MD - 03/25/2024 EXAM DESCRIPTION: XR CHEST PA LATERAL 2 VIEWS REASON FOR STUDY: I50.9 Fever/cough/congestion 3 days + covid and flu TECHNIQUE: 2 radiographic view(s) of the chest. COMPARISON: 12/06/2023 FINDINGS: No consolidation, pulmonary edema, pleural effusion or pneumothorax. Indeterminate 9 mm nodular opacity seen overlying the right 6th rib. Heart size and mediastinal contours are stable. IMPRESSION: 1. No acute cardiopulmonary abnormality is seen. 2. Possible subcentimeter right upper lobe pulmonary nodule. Recommend follow-up chest CT for further evaluation. THIS IS AN ELECTRONICALLY VERIFIED FINAL REPORT 03/25/2024 3:13 PM - Electronically signed by Neville Mejia M.D. AG: AG Report ID: [id number] Reading Location: [id number] Gil Mcmanus MD IMG XR PROCEDURES Final Result * eGFR (03/22/2024 6:25 AM CHILD DEVELOPMENT PROFESSOR) eGFR 73 >=60 mL/min/1. 73 m2 Comment: Interpretive Data Reference Interval Normal >/= 90 mL/min/1.73m2 Mildly decreased* 60 - 89 mL/min/1.73m2 Mildly to moderately decreased 45 - 59 mL/min/1.73m2 Moderately to severely decreased 30 - 44 mL/min/1.73m2 Severely decreased 15 - 29 mL/min/1.73m2 Kidney Failure < 15 mL/min/1.73m2 *Relative to young adult level Estimated glomerular filtration rate is determined by the 2020 CKD-EPI equation recommended by the National Kidney Foundation (A Unifying Approach to GFR Estimation: Recommendations of the NKF-ASK Task Force on Reassessing the Inclusion of Race in Diagnosing Kidney Disease, JASN 2020). The CKD-EPI equation should not be used for patients with unstable renal function and has not been validated in children and those over 70. Current interpretive data was last reviewed 2020. Blood 03/22/2024 6:25 AM CHILD DEVELOPMENT PROFESSOR 03/22/2024 6:52 AM CHILD DEVELOPMENT PROFESSOR us Gil Mcmanus MD LAB BLOOD ORDERABLES Final Resul t MARTITA KBS (MONROE 1 [facility] Department [place] [address] * Pro B-type natriuretic peptide (03/22/2024 6:25 AM CHILD DEVELOPMENT PROFESSOR) NT-proBNP <36 <=300 pg/mL Comment: Interpretive Comments: A. Dyspnea in Acute Care Setting All Ages: < 300 pg/ml, acute heart failure unlikely. < 50 yrs: 300 - 450 pg/ml, further investigation warranted. > 450 pg/ml, acute heart failure likely. 50 - 74 yrs: 300 - 900 pg/ml, further investigation warranted. > 900 pg/ml, acute heart failure likely . > or = 75 yrs: 450 - 1800 pg/ml, further investigation warranted. > 1800 pg/ml, acute heart failure likely. B. Non-acute Setting < 75 yrs < 125 pg/ml, rules out heart failure. > or = 125 pg/ml, further investigation warranted. > or = 75 yrs < 450 pg/ml, rules out heart failure. > or = 450 pg/ml, further investigation warranted. - Knowledge of each individual patient's NT-proBNP range may be more useful than using similar cut-points for every patient. Please note that marked elevations in NT-proBNP levels may be observed in state other than Left Ventricular Congestive Failure, including: acute coronary syndromes, right heart strain/failure (including pulmonary embolism and cor pulmonale), critical illness, renal failure, as well as advanced age. - References: 1. Sriram PRINCE et.al. Eur Heart J. 2006:27:330-337. 2. Keara RW, Fang ELIZABETH. J. AM Doron Cardiol: Cardiovasc Imag. 2009;2: 216- 225. Interpretive Data Last Revised Date: 2017. Blood 03/22/2024 6:25 AM CHILD DEVELOPMENT PROFESSOR 03/22/2024 6:52 AM CHILD DEVELOPMENT PROFESSOR Gil Mcmanus MD LAB BLOOD ORDERABLES Final Resul t Performing Organization Address City/[facility]/ZIP Co de Phone Number [facility] (MONROE) 1 [facility] [employer] [place] [address] * (ABNORMAL) Vitamin D 25 hydroxy (03/22/2024 6:25 AM CHILD DEVELOPMENT PROFESSOR) Vitamin D 25-OH 11(L) 30 - 80 ng/mL Blood 03/22/2024 6:25 AM CHILD DEVELOPMENT PROFESSOR 03/22/2024 6:52 AM CHILD DEVELOPMENT PROFESSOR Luiza Gee NP LAB BLOOD ORDERABLES Fi nal Result [facility] ([place]) 1 [facility] [place] [address] * (ABNORMAL) TSH (03/22/2024 6:25 AM CHILD DEVELOPMENT PROFESSOR) Thyroid Stimulating Hormone 5.23(H) 0.30 - 4.20 mcIUnit/mL Blood 03/22/2024 6:25 AM CHILD DEVELOPMENT PROFESSOR 03/22/2024 6:52 AM CHILD DEVELOPMENT PROFESSOR Luiza Gee SITE [employer]NER LAB BLOOD ORDERABLES Fi nal Result MARTITA AJ ([place]E) 1 [place] [address] * T4, free (03/22/2024 6:25 AM CHILD DEVELOPMENT PROFESSOR) Free T4 0.91 0.90 - 1.70 ng/dL Blood 03/22/2024 6:25 AM CHILD DEVELOPMENT PROFESSOR 03/22/2024 6:52 AM CHILD DEVELOPMENT PROFESSOR Luiza Gee SITE PLANNER LAB BLOOD ORDERABLES Fi nal Result Performing Organization Address [facility] Co de Phone Number MARTITA AJ (MONROE) 1 [place] [address] * Magnesium (03/22/2024 6:25 AM CHILD DEVELOPMENT PROFESSOR) [facility] Magnesium 1.5 1.4 - 2.5 mg/dL Blood 03/22/2024 6:25 AM CHILD DEVELOPMENT PROFESSOR 03/22/2024 6:52 AM CHILD DEVELOPMENT PROFESSOR Bravo Macdonald MD LAB BLOOD ORDERABLES Final Result Performing Organization Address City/[facility] Co de Phone Number MARTITA AJ ([place]) 1 [facility] [place] [place] [address] * (ABNORMAL) Hemoglobin A1c (03/22/2024 6:25 AM CHILD DEVELOPMENT PROFESSOR) Hgb A1C 5.8(H) 4.0 - 5.6 % Estimated Average Glucose 120 mg/dL [facility] ([place]) Comment: The ADA recommends reporting an estimated Average Glucose (eAG) with all Hemoglobin A1c results using the equation derived from a study of 507 normal and diabetic adults. Minority populations were underrepresented and children were not included. (Diabetes Care 31:0208-3034, 2008). The eAG is not equivalent to a fasting glucose. Blood 03/22/2024 6:25 AM CHILD DEVELOPMENT PROFESSOR 03/22/2024 6:52 AM CHILD DEVELOPMENT PROFESSOR Gil Mcmanus MD LAB BLOOD ORDERABLES Final Resul t MARTITA AJ (MON[place]) 1 [facility] [place] [place] [address] * Vitamin B12 (03/22/2024 6:25 AM CHILD DEVELOPMENT PROFESSOR) Pathologist [facility] Vitamin B12 377 230 - 1,250 pg/mL Blood 03/22/2024 6:25 AM CHILD DEVELOPMENT PROFESSOR 03/22/2024 6:52 AM CHILD DEVELOPMENT PROFESSOR Luiza Gee NP LAB BLOOD ORDERABLES Fi nal Result Performing Organization Address [facility] de Phone Number MARTITA AJ (MONROE) [address] [place] [address] [place] [address] * (ABNORMAL) Phenytoin level, total (03/22/2024 6:25 AM CHILD DEVELOPMENT PROFESSOR) [facility] Phenytoin 3.1(L) 10.0 - 20.0 mcg/mL Comment: Therapeutic range: 10-20 ug/mL Toxic: Greater than or equal to 20ug/mL Current interpretive data was last revised on 2014 Blood 03/22/2024 6:25 AM CHILD DEVELOPMENT PROFESSOR 03/22/2024 6:52 AM CHILD DEVELOPMENT PROFESSOR Luiza Gee NP LAB BLOOD ORDERABLES Fi nal Result Performing Organization Address City/[facility] Co de Phone Number MARTITA AJ (MONROE) [address] [place] [address] Department [place] [address] * (ABNORMAL) Lipid panel (03/22/2024 6:25 AM CHILD DEVELOPMENT PROFESSOR) Pathologist [facility] Cholesterol 189 30 - 199 mg/dL Comment: Interpretive Data Ages < or = 19 years Acceptable: <170 mg/dL Borderline high: 170-199 mg/dL High: >or= 200 mg/dL Ages > or = 20 years Desirable: <200 mg/dL Borderline high: 200-239 mg/dL High: >or= 240 mg/dL Literature References: 1. Expert Panel on Integrated Guidelines for Cardiovascular Health and Risk Reduction in Children and Adolescents. Pediatrics 2011;128:S213 2. NCEP Expert Panel. Circulation 2004;110:227 Current Interpretive Data was last revised on 2017. Triglycerides 197(H) <=149 mg/dL MARTITA AJ (JÚNIOR) Comment: Interpretive Data Ages < or = 9 years Acceptable: <75 mg/dL Borderline high: 75-99 mg/dL High: >or= 100 mg/dL Ages 10 to 20 years Acceptable: <90 mg/dL Borderline high: 90-129 mg/dL High: >or= 130 mg/dL Ages > or = 20 years Desirable: <150 mg/dL Borderline high: 150-199 mg/dL High: 200-499 mg/dL Very high: >or= 499 mg/dL Literature References: 1. Expert Panel on Integrated Guidelines for Cardiovascular Health and Risk Reduction in Children and Adolescents. Pediatrics 2011;128:S213 2. NCEP Expert Panel. Circulation 2004;110:227 Current Interpretive Data was last revised on 2017. HDL 81 >=40 mg/dL MARTITA AJ (JÚNIOR) Comment: Interpretive Data Ages < or = 19 years Acceptable: >45 mg/dL Borderline low: 40-45 mg/dL Low: <40 mg/dL Ages > or = 20 years Desirable: >or= 60 mg/dL Low: <40 mg/dL Literature References: 1. Expert Panel on Integrated Guidelines for Cardiovascular Health and Risk Reduction in Children and Adolescents. Pediatrics 2011;128:S213 2. NCEP Expert Panel. Circulation 2004;110:227 Current Interpretive Data was last revised on 2017. LDL, calculated 76 <=129 mg/dL MARTITA AJ (JÚNIOR) Comment: Interpretive Data Ages < or = 19 years Acceptable: <110 mg/dL Borderline high: 110-129 mg/dL High: >or= 130 mg/dL Ages > or = 20 years Optimal: <100 mg/dL Near optimal: 100-129 mg/dL Borderline high: 130-159 mg/dL High: >160 mg/dL Calculated using the Leblanc LDL-C estimating equation. This equation was implemented on 2023. Prior to this date LDL-C was estimated using the Friedewald equation. Literature References: 1. Expert Panel on Integrated Guidelines for Cardiovascular Health and Risk Reduction in Children and Adolescents. Pediatrics 2011;128:S213 2. NCEP Expert Panel. Circulation 2004;110:227 3. Benji M et al. RANDOLPH Cardiol. 2019June 13;5(5):540-548. doi: 10.1001/[email or web address].2020.0013 Current Interpretive Data was last revised on 2023. Non-HDL Cholesterol 108 mg/dL [facility] (JÚNIOR) Comment: Interpretive Data Ages < or = 19 years Acceptable: <120 mg/dL Borderline high: 120-144 mg/dL High: >145 mg/dL Ages > or = 20 years When triglycerides are >200 mg/dL, Non-HDL cholesterol is a secondary target of therapy with treatment goals that are 30 mg/dL greater than the LDL cholesterol target. Literature References: 1. Expert Panel on Integrated Guidelines for Cardiovascular Health and Risk Reduction in Children and Adolescents. Pediatrics 2011;128:S213 2. NCEP Expert Panel. Circulation 2004;110:227 Current Interpretive Data was last revised on 2017. Chol/HDL ratio 2 [facility] (JÚNIOR) Blood 03/22/2024 6:25 AM CHILD DEVELOPMENT PROFESSOR 03/22/2024 6:52 AM CHILD DEVELOPMENT PROFESSOR us Gil Mcmanus MD LAB BLOOD ORDERABLES Final Resul t [facility] (JÚNIOR) 1 [facility] Department [place] [address] * (ABNORMAL) Comprehensive metabolic panel (03/22/2024 6:25 AM CHILD DEVELOPMENT PROFESSOR) Sodium 140 135 - 145 mmol/L Potassium, pl 3.4 3.3 - 4.9 mmol/L [facility] (JÚNIOR) Chloride 106 97 - 110 mmol/L [facility] (JÚNIOR) CO2 19(L) 22 - 32 mmol/L [facility] (JÚNIOR) Anion gap 15 2 - 15 mmol/L [facility] (JÚNIOR) BUN 26(H) 6 - 25 mg/dL [facility] (JÚNIOR) Creatinine 0.93 0.60 - 1.10 mg/dL [facility] (JÚNIOR) Glucose 127 70 - 199 mg/dL [facility] (JÚNIOR) Comment: Interpretive Data Fasting glucose >/= 126 mg/dl is diagnostic for diabetes. Fasting is defined as no caloric intake for at least 8 hours. Fasting glucose between 100 mg/dl to 125 mg/dl is diagnostic of prediabetes. In a patient with classic symptoms of hyperglycemia or hyperglycemic crisis, a random glucose >/= 200 mg/dl is diagnostic for diabetes. In the absence of unequivocal hyperglycemia, results should be confirmed by repeat testing. The classification and Diagnosis of Diabetes Diabetes Care 2021; 46: S19-S40. Current interpretive data was last revised 2022. Calcium 8.4(L) 8.5 - 10.3 mg/dL [facility] (JÚNIOR) Bilirubin, total <0.2 0.1 - 1.2 mg/dL [facility] (JÚNIOR) Protein, pl 8.0 6.5 - 8.5 g/dL [facility] (JÚNIOR) Albumin 4.0 3.5 - 5.0 g/dL [facility] (JÚNIOR) Alk phos 188(H) 40 - 130 Units/L [facility] (JÚNIOR) ALT 28 7 - 45 Units/L [facility] (JÚNIOR) AST 24 10 - 45 Units/L [facility] (JÚNIOR) Blood 03/22/2024 6:25 AM CHILD DEVELOPMENT PROFESSOR 03/22/2024 6:52 AM CHILD DEVELOPMENT PROFESSOR us Gil Mcmanus MD LAB BLOOD ORDERABLES Final Resul t [facility] ([facility]) 1 [facility] Department [place] [address] * CT Abdomen Pelvis WO Contrast (03/19/2024 10:35 AM CHILD DEVELOPMENT PROFESSOR) Anatomical Region Laterality Modality Body N/A Computed Tomogra phy 03/19/2024 11:1 0 AM CHILD DEVELOPMENT PROFESSOR Impressions 03/19/2024 12:04 PM CHILD DEVELOPMENT PROFESSOR 1. 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 2. Increased wall thickening of the neoterminal ileum is partially evaluated on this noncontrast exam and may represent neoterminal ileitis. Clinical correlation is recommended. Dictated by: Kerri Cameron MD The radiology attending physician has personally reviewed this study, and had reviewed and/or edited this written report and agrees with it. Electronically signed by: Fadi Reilly M.D. 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 COMPARISON: CT 12/06/2023 FINDINGS: Right middle lobe and lingular scarring with traction bronchiectasis. No pleural effusion. Normal cardiac size without pericardial effusion. Small hiatal hernia. Unremarkable noncontrast appearance of the liver, spleen, pancreas, adrenal glands and kidneys. Cholecystectomy. Mildly increased pneumobilia likely related to prior intervention. No hydronephrosis or nephrolithiasis. Decompressed urinary bladder. Postsurgical changes of ileocolic resection and reanastomosis with left lower quadrant end colostomy and rectal stump. Increased wall thickening of the monique terminal ileum (2/132). Left lower quadrant end colostomy with interval increase in size of mesentery and fat-containing parastomal hernia with overlying skin thickening. The neck of the parastomal hernia measures 6.6 cm. The parastomal hernia in the greatest diameter measures up to 10.8 cm. Small fat-containing right abdominal ventral hernia. Ventral hernia repair. Redemonstration of multiple seton catheters in the perianal region. No evidence of bowel obstruction. No pneumoperitoneum or free fluid. No abdominal or pelvic lymphadenopathy. Normal caliber abdominal aorta with mild atherosclerosis. Degenerative changes cervical spine. No suspicious osseous lesion. 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 COMPARISON: CT 12/06/2023 FINDINGS: Right middle lobe and lingular scarring with traction bronchiectasis. No pleural effusion. Normal cardiac size without pericardial effusion. Small hiatal hernia. Unremarkable noncontrast appearance of the liver, spleen, pancreas, adrenal glands and kidneys. Cholecystectomy. Mildly increased pneumobilia likely related to prior intervention. No hydronephrosis or nephrolithiasis. Decompressed urinary bladder. Postsurgical changes of ileocolic resection and reanastomosis with left lower quadrant end colostomy and rectal stump. Increased wall thickening of the monique terminal ileum (2/132). Left lower quadrant end colostomy with interval increase in size of mesentery and fat-containing parastomal hernia with overlying skin thickening. The neck of the parastomal hernia measures 6.6 cm. The parastomal hernia in the greatest diameter measures up to 10.8 cm. Small fat-containing right abdominal ventral hernia. Ventral hernia repair. Redemonstration of multiple seton catheters in the perianal region. No evidence of bowel obstruction. No pneumoperitoneum or free fluid. No abdominal or pelvic lymphadenopathy. Normal caliber abdominal aorta with mild atherosclerosis. Degenerative changes cervical spine. No suspicious osseous lesion. IMPRESSION: 1. 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 2. Increased wall thickening of the neoterminal ileum is partially evaluated on this noncontrast exam and may represent neoterminal ileitis. Clinical correlation is recommended. Dictated by: Kerri Cameron MD The radiology attending physician has personally reviewed this study, and had reviewed and/or edited this written report and agrees with it. Electronically signed by: Fadi Reilly M.D. Ravi Umana MD [facility] [place] PROCEDURES Final Result * eGFR (02/28/2024 6:21 AM CHILD DEVELOPMENT PROFESSOR) eGFR 66 >=60 mL/min/1. 73 m2 Comment: Interpretive Data Reference Interval Normal >/= 90 mL/min/1.73m2 Mildly decreased* 60 - 89 mL/min/1.73m2 Mildly to moderately decreased 45 - 59 mL/min/1.73m2 Moderately to severely decreased 30 - 44 mL/min/1.73m2 Severely decreased 15 - 29 mL/min/1.73m2 Kidney Failure < 15 mL/min/1.73m2 *Relative to young adult level Estimated glomerular filtration rate is determined by the 2020 CKD-EPI equation recommended by the National Kidney Foundation (A Unifying Approach to GFR Estimation: Recommendations of the NKF-ASK Task Force on Reassessing the Inclusion of Race in Diagnosing Kidney Disease, JASN 2020). The CKD-EPI equation should not be used for patients with unstable renal function and has not been validated in children and those over 70. Current interpretive data was last reviewed 2020. Blood 02/28/2024 6:21 AM CHILD DEVELOPMENT PROFESSOR 02/28/2024 6:25 AM CHILD DEVELOPMENT PROFESSOR Bravo Macdonald MD LAB BLOOD ORDERABLES Final Result Performing Organization Address City/[facility]/ZIP Co de Phone Number [facility] (JÚNIOR) 1 [facility] [place] [address] * Magnesium (02/28/2024 6:21 AM CHILD DEVELOPMENT PROFESSOR) Pathologist [facility] Magnesium 1.5 1.4 - 2.5 mg/dL Blood 02/28/2024 6:21 AM CHILD DEVELOPMENT PROFESSOR 02/28/2024 6:25 AM CHILD DEVELOPMENT PROFESSOR Bravo Macdonald MD LAB BLOOD ORDERABLES Final Result Performing Organization Address City/[facility] Co de Phone Number [facility] (JÚNIOR) 1 [facility] [place] [address] * (ABNORMAL) Basic metabolic panel (02/28/2024 6:21 AM CHILD DEVELOPMENT PROFESSOR) Sodium 133(L) 135 - 145 mmol/L Potassium, pl 3.7 3.3 - 4.9 mmol/L [facility] ([facility]) Chloride 103 97 - 110 mmol/L [facility] ([facility]) CO2 18(L) 22 - 32 mmol/L [facility] ([facility]) Anion gap 11 2 - 15 mmol/L [facility] ([facility]) BUN 28(H) 6 - 25 mg/dL [facility] ([facility]) Creatinine 1.01 0.60 - 1.10 mg/dL [facility] ([facility]) Glucose 121 70 - 199 mg/dL [facility] (JÚNIOR) Comment: Interpretive Data Fasting glucose >/= 126 mg/dl is diagnostic for diabetes. Fasting is defined as no caloric intake for at least 8 hours. Fasting glucose between 100 mg/dl to 125 mg/dl is diagnostic of prediabetes. In a patient with classic symptoms of hyperglycemia or hyperglycemic crisis, a random glucose >/= 200 mg/dl is diagnostic for diabetes. In the absence of unequivocal hyperglycemia, results should be confirmed by repeat testing. The classification and Diagnosis of Diabetes Diabetes Care 2021; 46: S19-S40. Current interpretive data was last revised 2022. Calcium 9.0 8.5 - 10.3 mg/dL [facility] (JÚNIOR) Blood 02/28/2024 6:21 AM CHILD DEVELOPMENT PROFESSOR 02/28/2024 6:25 AM CHILD DEVELOPMENT PROFESSOR Bravo Macdonald MD LAB BLOOD ORDERABLES Final Result [facility] (JÚNIOR) 1 [facility] Department [place] [address] * COLONOSCOPY REPORT (10/02/2015) Anatomical Region Laterality Modality Other Narrative 10/02/2015 Ordered by an unspecified provider. Historical Provider GI PROCEDURE ORDERABLES F inal Result from Last 3 Months or Most Recently Relevant to Health Maintenance Insurance MEDICARE [place] OPEN ACCESS MEDICARE MEDICARE Advance Directives For more information, please contact: [phone] * Full Code (Latest Code Status on File) Date Activated Date Inactivated Comments 04/21/2024 6:14 AM 04/22/2024 5:20 PM * Full Code Date Activated Date Inactivated Comments 12/12/2023 4:28 PM 12/14/2023 11:13 AM * Full Code Date Activated Date Inactivated Comments 12/06/2023 4:06 PM 12/10/2023 6:31 PM * Full Code Date Activated Date Inactivated Comments 12/05/2023 12:24 PM 12/05/2023 7:27 PM * Full Code Date Activated Date Inactivated Comments 10/02/2023 5:06 PM 10/08/2023 7:27 PM Care Teams Associate Professor Of Physics Relationship Specialty Start Date End Date Luiza Gee NP 4 [facility] [address] [place] [address] PCP - General Nurse Practitioner 03/14/24 Tyrese Salinas MD [address] [facility] [address] [place] [address] Consulting Physician Gastroenterology 03/31/17 Blanco Moise MD 2 [facility] [address] [place] [address] Referring Physician Gastroenterology 12/04/22 Jamari Haile Jr., MD [address] [facility] [phone] [place] [address] Consulting Physician Colon and Rectal Surgery 01/15/23 Bravo Macdonald MD [address] [place] [address] Consulting Physician Gastroenterology 02/17/23 [place] [id number] [address] Consulting Physician Nephrology 07/17/23
--- OUTSIDE RECORDS SUMMARY | 2024-05-25 18:21 | XMS_ITS | Clinical Summary ---
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 [...] NS daily. Home health set up with [facility]. Dr. Torres Cordon will follow OP. Hypomagnesemia [...] is allergic to penicillins/cephalosporins. 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 PICC line was removed early [...] fevers at home. She was admitted to [facility] on 09/04 and ID was [...] material, this was cleaned off with wound connie cleaner several times and from a deeper [...] than ultrasound. No findings of abscess. Patient chlorine cell tender today but asking about going home. [...] 03/20/2023 Assessment & Plan (03/20/2023 10:41 AM SQUARE DANCE CALLER): Left arm pain with neck swelling. Concern for DVT given active IBD and recent rinvoq use. No SOB. Check LUE US. She is scheduled to see her fitness plan coordinator soon. Counseled her that any CP, SOB [...] 01/16/2023 Assessment & Plan (03/13/2024 10:06 PM SQUARE DANCE CALLER): All immunosuppressants carry a theoretical risk of [...] hepatotoxicity. Assessment & Plan (03/20/2023 10:22 AM SQUARE DANCE CALLER): All immunosuppressants carry a theoretical risk of [...] SOB. Assessment & Plan (01/16/2023 12:02 PM SQUARE DANCE CALLER): All immunosuppressants carry a theoretical risk of [...] Cervical cancer screening: routine follow up with regional property manager Skin cancer screening: consider referral to dermatology [...] continuity. Assessment & Plan (03/20/2023 10:39 AM SQUARE DANCE CALLER): High output but UOP ok and Cr improving with extra IVF. Weight is stable. Rec increasing Mg to BID, though likely wont be able to go higher because it may make her output worse. Ultimately she needs to be hooked back up but she needs to be on risankizumab first. Assessment & Plan (01/16/2023 1:25 PM SQUARE DANCE CALLER): 185 cm of small bowel in end ileostomy but with transverse colon and beyond not in continuity. This high of output is not sustainable. She at the least needs more IVF but may need TPN if it can't come down with antidiarrheals. She should have enough bowel to avoid fci TPN especially if and when she can [...] re-do ICR, EI, EUA with seton placement ([place]) Prior treatments: prednisone, Pentasa, infliximab + aza [...] disease Put on humira 2014 mucosal remission 2016 ulcers in neoTI Lost to fu from IBD No response to humira No response to vedolizumab 2020 tried infliximab again but developed antibodies 07/2021 admitted to [facility] for perianal abscess s/p EUA with setons Started ustekinumab Multiple admits for perianal disease and SBO 11/16/20[address]. Oconnor at OSH Perianal exam [...] normal Assessment & Plan (03/13/2024 10:21 PM SQUARE DANCE CALLER): Severe ileocolonic and perianal crohn's s/p multiple [...] quickly. She was advised to consult a steam drier operator, but since her insurance does not cover [...] Haile. Assessment & Plan (03/20/2023 10:37 AM SQUARE DANCE CALLER): Fistula symptoms improved with setons and diversion. [...] them. Assessment & Plan (01/16/2023 1:34 PM SQUARE DANCE CALLER): Severe ileocolonic and perianal crohn's now s/p [...] breast 05/14/2014 03/30/2017 Overview (05/20/2016): Breast abscess Encounters Date Type Department Care Team Description 05/21/2024 7:15 PM CDT - 05/21/2024 11:59 PM CDT Hospital Encounter [facility] [address] [place] [address] MATT (obstructive sleep apnea) Discharge Disposition: Discharge to home or self care 05/13/2024 8:30 AM CDT Office Visit [facility] Sleep Medicine at [address] [place] [id number] Odessa Mcallister MD Obstructive sleep apnea (Primary Dx); MATT (obstructive sleep apnea); Obesity, unspecified class, unspecified obesity type, unspecified whether serious comorbidity present 05/09/2024 2:45 PM CDT Office Visit [facility] Floor [address] [place] [address] Jamari Haile Jr., MD Intestinal stoma prolapse (HCC) (Primary Dx); Colostomy care (HCC); Ruqcqfy-[id number]-bts; Chronic abdominal pain 04/26/2024 [facility] Post Discharge Follow up phone call [facility] [address] [place] [address] Willa Calzada 04/26/2024 [facility] Post Discharge Follow up phone call [facility] [address] [place] [address] Willa Calzada 04/25/2024 Telephone [facility] Cardiology [facility] [address] [place] [phone] Alex Leary MD 04/23/2024 Results Follow-Up [facility] Gastroenterology [address] [place] [address] Medical Office Building [address] [place] [address] Bravo Macdonald MD 04/21/2024 12:05 AM SQUARE DANCE CALLER - 04/22/2024 1:10 PM CDT Emergency [facility] [address] [place] [address] Kerri Broderick DO Kim, Eileen H., MD Ileostomy prolapse (HCC) (Primary Dx); Neutrophilia Discharge Disposition: Discharge to home or self care 04/16/2024 6:30 AM SQUARE DANCE CALLER Lab [address] [address] 04/16/2024 6:25 AM SQUARE DANCE CALLER [address] [address] Crohn's disease of both small and large intestine with abscess (HCC) 04/16/2024 Telephone [facility] [address] [place] [address] Medical Office Building [address] [place] [address] Courtney Fuller, MADDIE 04/11/2024 Telephone [facility] Gastroenter[facility] Advanced Medicine 12th [place] [address] [place] [address] Annel Pickens, MADDIE 04/10/2024 Telephone [facility]astroenter[facility] Advanced Medicine 12th [place] [address] [place] [address] Nikkie Rivera Schedule MRE 04/03/2024 6:30 AM SQUARE DANCE CALLER Lab [address] [address] 03/22/2024 6:17 AM SQUARE DANCE CALLER - 03/22/2024 11:59 PM SQUARE DANCE CALLER Hospital Encounter [facility] [address] [place] [address] Heart failure, unspecified (HCC) Discharge Disposition: Discharge to home or self care 03/22/2024 6:15 AM SQUARE DANCE CALLER Lab [address] [address] 03/22/2024 6:10 AM SQUARE DANCE CALLER Lab [address] [address] Magnesium deficiency; Crohn's disease of both small and large intestine with abscess (HCC); 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 03/22/2024 6:05 AM SQUARE DANCE CALLER Lab [address] [address] 03/19/2024 10:22 AM SQUARE DANCE CALLER - 03/19/2024 11:59 PM SQUARE DANCE CALLER Hospital Encounter [facility] Imaging [address] [place] [address] Ravi Umana MD Colostomy prolapse (HCC) Discharge Disposition: Discharge to home or self care 03/14/2024 Documentation [facility] Medicine 12th [place] [address] [place] [address] Annel Pickens RN 03/13/2024 ROV follow up 03/13/2024 3:00 PM SQUARE DANCE CALLER Office Visit [facility] [address] [place] [address] Medical Office Building [address] [place] [address] Ravi Umana MD Colostomy prolapse (HCC) (Primary Dx) 03/13/2024 11:45 AM SQUARE DANCE CALLER Office Visit [facility] G[facility]enterology [address] [place] [address] Medical Office Building [address] [place] [address] Bravo Macdonald MD Magnesium deficiency (Primary Dx); Crohn's disease of both small and large intestine with abscess (HCC); 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; High risk medications (not anticoagulants) long-term use; Crohn's disease of small and large intestines with complication (HCC) 02/28/2024 6:15 AM SQUARE DANCE CALLER Lab [address] [address] Magnesium deficiency; Crohn's disease of both small and large intestine with abscess (HCC); 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; High risk medications (not anticoagulants) long-term use from Last 3 Months Immunizations Immunization Administration Dates Next Due Hep A, Adult 03/06/2001,07/04/2000 Influenza, Quadrivalent, Spl it, Intramuscular 12/17/2020,11/14/2019,11/17/2016,12/23,02/16/2015 Influenza, Quadrivalent, Spl it, Preservative Free, Intramuscular 11/11/2022,02/24/2020,04/12/2019 Influenza, Trivalent, IM (MDV) ,12/21/2015,11/13/2014,11/13 Influenza, Unspecified 11/14/2023 Pneumococcal Polysaccharide PPV23 02/16/2015 Tdap 01/24/2022,05/18/2015 Surgical History Surgery Date Site/Laterality Comments HYSTERECTOMY TREATMENT FISTULA ANAL CHOLECYSTECTOMY APPENDECTOMY HYSTERECTOMY OOPHERECTOMY COLON SURGERY Partial colectomy SMALL BOWEL RESECTION TONSILLECTOMY/ADENOIDECTOMY REPAIR PELVIC FLOOR DEFECT VAGINAL APPROACH W/ MESH And removal in another procedure after infection TUNNELED LINE PLACEMENT > 5 YEARS 10/06/2023 N/A REMOVE TUNNELED LINE 12/08/2023 Left ABDOMINAL SURGERY Medical History Medical History Date Comments Crohn's disease (HCC) Epilepsy (HCC) Rheumatoid arthritis (HCC) GERD (gastroesophageal reflux disease) Rheumatoid arthritis (HCC) COPD (chronic obstructive pu lmonary disease) (HCC) Chronic diarrhea Colon polyp Liver disease PONV (postoperative nausea and vomiting) zofran is helpful, allergy reglan, scopolamine not helpful Epilepsy (HCC) Diagnosed at age 17; controlled with Dilantin Sleep apnea Family History Medical History Relation Name Comments Crohn's disease Cousin 1 Crohn's disease Cousin 2 Colon polyps Father Anesthesia problems Neg Hx Colon cancer Neg Hx Relation Name Status Comments Cousin 1 Alive Cousin 2 Alive Father Social History Tobacco Use Types Packs/Day Years Used Date Smoking Tobacco: Former Cigarettes 2 37 1 2020 Smokeless Tobacco: Never Tobacco Cessation:Counseling Given: [...] materials from doctor or pharmacy Sometimes 12/21/2023 [facility] Utilities Answer Date Recorded In the past 12 months has th e [employer], [employer], oil, or water [employer] threatened to shut off services in your [...] week 04/22/2024 How often do you attend [facility] or temple services? Patient declined 04/22/2024 Do you belong to any clubs o r organizations such as scientologist groups, unions, fraternal or athletic groups, or [...] any time in the past 12 [facility], were you homeless or living in [...] on file Legal Sex Female 12:42 AM SQUARE DANCE CALLER Gender Identity Not on file Sexual Orientation Not on file Obstetrics History Last Filed Vital Signs Vital Sign Reading [...] Description 05/29/2024 8:05 AM CDT Hospital Encounter [facility] Cardiac Sugar Cane Planting Equipment Operator [address] [place] [address] Alex Leary MD [address] [place], [place] [phone] Chest pain, unspecified type 05/29/2024 8:05 AM CDT - 05/29/2024 9:00 AM CDT Surgery [facility] Cardiac Sugar Cane Planting Equipment Operator [address] [place] [address] Alex Leary MD [address] [place] [address] Right Left Heart Catheterization with Coronary Angiography with or without Left Ventriculography [address] Health Maintenance Due Date Last Done Comments Hepatitis C Screening 1970 Regular Well Visit/Exam 18-64 1987 Zoster Vaccine (1 of 2) 02/07/1988 Pneumococcal vaccine <65 (2 of 2 - PCV) 02/17/2016 02/16/2015 Covid-19 Vaccine (3 - Modern a risk series) 01/15/2021 12/18/2020, 06/01/2020, 05/04/2020 Lung Cancer Screening 05/31/2023 05/30/2022 Breast Cancer Screening-Mammogram 06/05/2024 024, 06/06/2023 Depression Screening 09/04/2024 09/05/2023, 07/31/2023, 01/16/2023 Colon Cancer Screening-Colonoscopy 10/01/2025 10/02/2015 DTaP/Tdap/Td Vaccine (3 - Td or Tdap) 01/25/2032 01/24/2022, 05/18/2015 Colon Cancer Screening-CT Colonography Discontinued 10/02/2015 Colon Cancer Screening-DNA Stool Discontinued 10/02/19 16 Colon Cancer Screening-FIT Discontinued 10/02/2015 Colon Cancer Screening-Sigmoidoscopy Discontinued 10/02/2015 Hepatitis B Screening Completed 01/19/2023 Influenza Vaccine Completed 11/14/2023, , 11/11/2022, Additional history exists Medical Devices Explanted Type [place] Home Demonstrator Device Identifier Shelf Expiration Date Model / Serial / Lot Stent Pancreatic Augustin Flexi-Stent .035 In L3 Cm Od7 Fr Small Pigtail Flexible - [id number] Implanted:Qty: 1 on 03/29/2017 by Tyrese Salinas MD at [facility] Explanted:Qty: 1 on 03/31/2017 at [facility] Stent N/A: Pancreas [employer] 12/13/2021 [id number] / / [id number] Stent Wallflex Biliary Rx Fc Rmv Us [id number] - [id number] Implanted:Qty: 1 on 03/29/2017 by Tyrese Salinas MD at [facility] Explanted:Qty: 1 on 03/31/2017 at [facility] Stent N/A: Bile Duct [employer] 01/18/2019 [id number] / / [id number] Procedures Procedure Name Priority Date/Time Associated Diagnosis [...] LACTATE WITH REFLEX STAT 04/21/2024 1:49 AM SQUARE DANCE CALLER BLOOD CULTURE STAT 04/21/2024 1:49 AM SQUARE DANCE CALLER BLOOD CULTURE STAT 04/21/2024 1:49 AM SQUARE DANCE CALLER EGFR STAT 04/20/2024 9:56 PM SQUARE DANCE CALLER DIFFERENTIAL AUTO STAT 04/20/2024 9:5 6 PM SQUARE DANCE CALLER COMPREHENSIVE METABOLIC PANEL STAT 04/20/2024 9:56 PM SQUARE DANCE CALLER CBC WITH AUTO DIFFERENTIAL STAT 04/20/2024 9:56 PM SQUARE DANCE CALLER CALPROTECTIN, FECAL Routine 04/16/2024 6 :39 AM SQUARE DANCE CALLER Crohn's disease of both small and large intestine with abscess (HCC) EGFR Routine 04/16/2024 6:32 AM SQUARE DANCE CALLER MAGNESIUM Routine 04/16/2024 6:32 AM SQUARE DANCE CALLER PRO B-TYPE NATRIURETIC PEPTIDE Routine 04/16/2024 6:32 AM SQUARE DANCE CALLER COMPREHENSIVE METABOLIC PANEL Routine 04/16/2024 6:32 AM SQUARE DANCE CALLER EGFR Routine 04/03/2024 6:49 AM SQUARE DANCE CALLER PRO B-TYPE NATRIURETIC PEPTIDE Routine 04/03/2024 6:49 AM SQUARE DANCE CALLER HEMOGLOBIN A1C Routine 04/03/2024 6:49 AM SQUARE DANCE CALLER LIPID PANEL Routine 04/03/2024 6:49 AM SQUARE DANCE CALLER COMPREHENSIVE METABOLIC PANEL Routine 04/03/2024 6:49 AM SQUARE DANCE CALLER XR CHEST PA LATERAL 2 VIEWS Schedule Routine, Read Routine (OP Routine) 03/22/2024 6:38 AM SQUARE DANCE CALLER Heart failure, unspecified (HCC) EGFR Routine 03/22/2024 6:25 AM SQUARE DANCE CALLER PHENYTOIN LEVEL, TOTAL Routine 03/22/2024 6:25 AM SQUARE DANCE CALLER VITAMIN B12 Routine 03/22/2024 6:25 AM SQUARE DANCE CALLER VITAMIN D 25 HYDROXY Routine 03/22/2024 6:25 AM SQUARE DANCE CALLER T4, FREE Routine 03/22/2024 6:25 AM SQUARE DANCE CALLER TSH Routine 03/22/2024 6:25 AM SQUARE DANCE CALLER MAGNESIUM Routine 03/22/2024 6:25 AM SQUARE DANCE CALLER Magnesium deficiency Crohn's disease of both small and large intestine with abscess (HCC) 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 PRO B-TYPE NATRIURETIC PEPTIDE Routine 03/22/2024 6:25 AM SQUARE DANCE CALLER HEMOGLOBIN A1C Routine 03/22/2024 6:25 AM SQUARE DANCE CALLER LIPID PANEL Routine 03/22/2024 6:25 AM SQUARE DANCE CALLER COMPREHENSIVE METABOLIC PANEL Routine 03/22/2024 6:[address] ABDOMEN PELVIS WO CONTRAST Schedule Routine, Read Routine (OP Routine) 03/19/2024 10:35 AM SQUARE DANCE CALLER Colostomy prolapse (HCC) EGFR Routine 02/28/2024 6:21 AM SQUARE DANCE CALLER High risk medications (not anticoagulants) long-term use Magnesium deficiency Crohn's disease of both small and large intestine with abscess (HCC) 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 BASIC METABOLIC PANEL Routine 02/28/2024 6:21 AM SQUARE DANCE CALLER High risk medications (not anticoagulants) long-term use Magnesium deficiency Crohn's disease of both small and large intestine with abscess (HCC) 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 MAGNESIUM Routine 02/28/2024 6:21 AM SQUARE DANCE CALLER Magnesium deficiency Crohn's disease of both small [...] MD LAB BLOOD ORDERABLES Final Resu lt [facility] ([place]) 1 [facility] Department of Laboratories [place], [place] [id number] * (ABNORMAL) Differential, auto (04/22/2024 3:11 AM [...] 3:11 AM CDT 04/22/2024 3:38 AM CDT Odalys Felix MD LAB BLOOD ORDERABLES Final Resu lt [facility] ([place]) 1 [facility] [place] [address] * (ABNORMAL) CBC with auto differential (04/22/2024 [...] 3:11 AM CDT 04/22/2024 3:38 AM CDT Odalys Felix MD LAB BLOOD ORDERABLES Final Resu lt [facility] ([place]) 1 [facility] [place] [address] * Phosphorus (04/22/2024 3:11 AM CDT) Pathologist [facility] Phosphorus, pl 4.2 2.3 - 4.5 mg/dL Blood 04/22/2024 3:11 AM CDT 04/22/2024 4:54 AM CDT Odalys Felix MD LAB BLOOD ORDERABLES Final Resu lt [facility] ([place]) 1 [facility] [place] [address] * Magnesium (04/22/2024 3:11 AM CDT) [facility] Magnesium 1.7 1.4 - 2.5 mg/dL Blood 04/22/2024 3:11 AM CDT 04/22/2024 4:54 AM CDT Odalys Felix MD LAB BLOOD ORDERABLES Final Resu lt Performing Organization Address City/[facility]/ZIP Co de Phone Number [facility] ([place]) 1 [facility] [place] [place] [address] * (ABNORMAL) Basic metabolic panel (04/22/2024 3:11 AM CDT) [facility] Sodium 140 135 - 145 mmol/L Potassium, pl 3.6 3.3 - 4.9 mmol/L [facility] ([place]) Chloride 107 97 - 110 mmol/L [facility] ([place]) CO2 20(L) 22 - 32 mmol/L [facility] ([place]) Anion gap 13 2 - 15 mmol/L [facility] ([place]) BUN 20 6 - 25 mg/dL [facility] ([place]) Creatinine 1.01 0.60 - 1.10 mg/dL [facility] ([place]) Glucose 96 70 - 199 mg/dL [facility] ([place]) Comment: Interpretive Data Fasting glucose >/= [...] Final Resu lt [facility] ([place]) 1 [facility] [place] [address] * (ABNORMAL) Urinalysis reflex to microscopic and [...] tendency for uric acid stone formation. Source: [facility] [employer] Current Interpretive Data was last revised on [...] MH ([place]) Leukocyte esterase, ur 1+(A) Negative [facility] ([place]) UA reflex comment Reflex to microscopic UA will be performed. [facility] ([place]) Urine 04/21/2024 4:31 AM CDT 04/21/2024 4:35 AM CDT Edith Wiggins MD LAB MICROBIOLOGY - GENERA L ORDERABLES Final Result Performing Organization Address [facility] Co de Phone Number [facility] ([place]) 1 [facility] [place] [address] * (ABNORMAL) Urinalysis, microscopic only (04/21/2024 4:31 AM CDT) WBC, ur 6-10(A) 0 - 5 /HPF RBC, ur 0-2 0 - 2 /HPF [facility] ([place]) Epithelial cells, squamous, ur 11-20(A) 0 - 5 /HPF [facility] ([place]) Bacteria, ur Trace(A) [facility] ([place]) Culture Reflex Comment Reflex conditions for urine culture (WBC >10) not met. [facility] ([place]) Urine 04/21/2024 4:31 AM CDT 04/21/2024 4:35 AM CDT Edith Wiggins MD LAB URINE ORDERABLES Amalia l Result Performing Organization Address [facility] Co de Phone Number [facility] ([place]) 1 [facility] [place] [address] * CT Abdomen Pelvis WO Contrast (04/21/2024 [...] Guru Salinas M.D. AR: TYE Report ID: [id number] Reading Location: [place] [address] Procedure Note Guru Salinas MD - 04/21/2024 [...] Guru Salinas M.D. AR: TYE Report ID: [id number] Reading Location: [id number] Edith Wiggins MD IMG CT PROCEDURES Final R esult * Sepsis Lactate w/ Reflex (04/21/2024 1:49 AM SQUARE DANCE CALLER) Pathologist [facility] Sepsis Lactate 1.3 0.7 - 2.0 mmol/L Blood 04/21/2024 1:49 AM SQUARE DANCE CALLER 04/21/2024 1:59 AM SQUARE DANCE CALLER Edith Wiggins MD LAB BLOOD ORDERABLES Amalia l Result [facility] [place]) 1 [facility] [place] [place] [address] * Blood culture Blood Peripheral (04/21/2024 1:49 AM SQUARE DANCE CALLER) Report Final Report: No growth Comment:Testing performed by : [facility], 1 [facility] [place]., [address] Blood (Peripheral) 04/21/2024 1:49 AM SQUARE DANCE CALLER 04/21/2024 5:19 AM CDT Narrative [facility] ([place]) - 04/25/2024 7:00 AM CDT From [...] performance characteristics have been verified by the [facility] Microbiology Laboratory. For questions about this culture, contact the Microbiology Laboratory at [phone]. Interpretive data was last revised on 23. Edith Wiggins MD LAB MICROBIOLOGY - GENERA L ORDERABLES Final Result [facility] ([place]) 1 [facility] Department [place] [address] * Blood culture Blood Peripheral (04/21/2024 1:49 AM SQUARE DANCE CALLER) Report Final Report: No growth Comment:Testing performed by : [facility], 1 [facility] [place]., [address] Blood (Peripheral) 04/21/2024 1:49 AM SQUARE DANCE CALLER 04/21/2024 5:19 AM CDT Narrative [facility]ITA AJ [...] performance characteristics have been verified by the [facility] Microbiology Laboratory. For questions about this culture, contact the Microbiology Laboratory at [phone]. Interpretive data was last revised on 23. Edith Wiggins MD LAB MICROBIOLOGY - GENERA L ORDERABLES Final Result [facility] ([place]) 1 [facility] Department [place] [address] * eGFR (04/20/2024 9:56 PM SQUARE DANCE CALLER) eGFR 64 >=60 mL/min/1. 73 m2 Comment: [...] last reviewed 2020. Blood 04/20/2024 9:56 PM SQUARE DANCE CALLER 04/20/2024 10:01 PM SQUARE DANCE CALLER Kerri Broderick DO LAB BLOOD ORDERABLES Fin al Result [facility] ([place]) 1 [facility] [place] [address] * (ABNORMAL) Differential, auto (04/20/2024 9:56 PM SQUARE DANCE CALLER) Neutrophil abs 11.4(H) 1.5 - 6.5 K/cumm [...] revised on 2017. Blood 04/20/2024 9:56 PM SQUARE DANCE CALLER 04/20/2024 10:01 PM SQUARE DANCE CALLER Kerri Broderick DO LAB BLOOD ORDERABLES Fin al Result [facility] ([place]) 1 [facility] Department of Laboratories [place], [place] [id number] * (ABNORMAL) CBC with auto differential (04/20/2024 9:56 PM SQUARE DANCE CALLER) WBC 18.2(H) 3.8 - 9.9 K/cumm Hgb [...] RDW CV 14.5 11.1 - 14.9 % [facility] ([place]) RDW SD 46.6 35.7 - 48.1 fL [facility] ([place]) NRBC abs 0.00 0.00 - 0.01 K/cumm [facility] ([place]) Blood 04/20/2024 9:56 PM SQUARE DANCE CALLER 04/20/2024 10:01 PM SQUARE DANCE CALLER us Kerri Broderick DO LAB BLOOD ORDERABLES Fin al Result [facility] ([place]) 1 [facility] [place] [address] * (ABNORMAL) Comprehensive metabolic panel (04/20/2024 9:56 PM SQUARE DANCE CALLER) Sodium 138 135 - 145 mmol/L Potassium, pl 3.0(C) 3.3 - 4.9 mmol/L [facility] (JÚNIOR) Comment:Critical Result call ed by [id number] at 2024-04-20 22:49:41. Result Read Back by Stacey Rider RN ER Chloride 102 97 - 110 mmol/L [facility] ([facility] CO2 21(L) 22 - 32 mmol/L [facility] ([facility] Anion gap 15 2 - 15 mmol/L [facility] ([facility]) BUN 27(H) 6 - 25 mg/dL [facility] (JÚNIOR) Creatinine 1.03 0.60 - 1.10 mg/dL [facility] ([facility] Glucose 106 70 - 199 mg/dL [facility] (JÚNIOR) Comment: Interpretive Data Fasting glucose [...] classification and Diagnosis of Diabetes Diabetes Care 202; 46: S19-S40. Current interpretive data was last revised 2022. Calcium 7.4(L) 8.5 - 10.3 mg/dL [facility] (JÚNIOR) [...] Hemolyzed S pecimen Blood 04/20/2024 9:56 PM SQUARE DANCE CALLER 04/20/2024 10:01 PM SQUARE DANCE CALLER us Kerri Broderick DO LAB BLOOD ORDERABLES Fin al Result Performing Organization Address [facility]/ZIP Co de Phone Number MARTITA AJ ([place]) 1 [facility] [email or web address] [address] * Calprotectin, fecal (04/16/2024 6:39 AM SQUARE DANCE CALLER) Pathologist [facility] Calprotectin, fecal <50.0 <50.0 (Normal) mcg/g [facility] ref [facility] Comment: Test Performed by: [place] [address] Concrete Crusher Loader Operator: Leonardo Gerardo Ph.D.; CLIA# [id number] Stool 04/16/2024 6:39 AM SQUARE DANCE CALLER 04/16/2024 6:43 AM SQUARE DANCE CALLER us Bravo Macdonald MD LAB BODY FLUIDS AND STOOLS ORDERABLES Final Result MARTITA AJ ([place]) 1 [facility] [email or web address] [address] [place] ref Lab * eGFR (04/16/2024 6:32 AM SQUARE DANCE CALLER) Pathologist [facility] eGFR 64 >=60 mL/min/1. 73 m2 Comment: [...] last reviewed 2020. Blood 04/16/2024 6:32 AM SQUARE DANCE CALLER 04/16/2024 6:43 AM SQUARE DANCE CALLER us Gil Mcmanus MD LAB BLOOD ORDERABLES Final Resul t JENNIAPW BTK ([place] 1 [facility] [place] [address] * Pro B-type natriuretic peptide (04/16/2024 6:32 AM SQUARE DANCE CALLER) NT-proBNP 167 <=300 pg/mL Comment: Interpretive Comments: [...] et.al. Eur Heart J. 2006:27:330-337. 2. Keara REED, Fang ELIZABETH. J. AM [place] Cardiol: Cardiovasc Imag. 2009;2: 216- 225. Interpretive Data Last Revised Date: 2017. Blood 04/16/2024 6:32 AM SQUARE DANCE CALLER 04/16/2024 6:43 AM SQUARE DANCE CALLER Gil Mcmanus MD LAB BLOOD ORDERABLES Final Resul t Performing Organization Address [facility] de Phone Number MARTITA [facility] ([place]) 1 [facility] [email or web address] [address] * (ABNORMAL) Magnesium (04/16/2024 6:32 AM SQUARE DANCE CALLER) Pathologist [facility] Magnesium 1.1(L) 1.4 - 2.5 mg/dL Blood 04/16/2024 6:32 AM SQUARE DANCE CALLER 04/16/2024 6:43 AM SQUARE DANCE CALLER Gil Mcmanus MD LAB BLOOD ORDERABLES Final Resul t Performing Organization Address [facility] de Phone Number MARTITA AJ ([place]) 1 [facility] [place] [place] [address] * (ABNORMAL) Comprehensive metabolic panel (04/16/2024 6:32 AM SQUARE DANCE CALLER) Sodium 139 135 - 145 mmol/L Potassium, [...] Slightly Hemolyzed Specimen Blood 04/16/2024 6:32 AM SQUARE DANCE CALLER 04/16/2024 6:43 AM SQUARE DANCE CALLER us Gil Mcmanus MD LAB BLOOD ORDERABLES Final Resul t MARTITA AJ ([place]) 1 [facility] [place] [address] * eGFR (04/03/2024 6:49 AM SQUARE DANCE CALLER) eGFR 63 >=60 mL/min/1. 73 m2 Comment: [...] last reviewed 2020. Blood 04/03/2024 6:49 AM SQUARE DANCE CALLER 04/03/2024 6:55 AM SQUARE DANCE CALLER us Gil Mcmanus MD LAB BLOOD ORDERABLES Final Resul t [facility] [place] 1 [facility] [place] [address] * Pro B-type natriuretic peptide (04/03/2024 6:49 AM SQUARE DANCE CALLER) NT-proBNP 54 <=300 pg/mL Comment: Interpretive Comments: [...] et.al. Eur Heart J. 2006:27:330-337. 2. [place] REED, Fang ELIZABETH. J. AM [place] Cardiol: Cardiovasc Imag. 2009;2: 216- 225. Interpretive Data Last Revised Date: 2017. Blood 04/03/2024 6:49 AM SQUARE DANCE CALLER 04/03/2024 6:55 AM SQUARE DANCE CALLER us Gil Mcmanus MD LAB BLOOD ORDERABLES Final Resul t Performing Organization Address City/[facility] Co de Phone Number MARTITA AJ ([place]) [address] [place] [address] [email or web address] [address] * (ABNORMAL) Hemoglobin A1c (04/03/2024 6:49 AM SQUARE DANCE CALLER) [facility] Hgb A1C 5.8(H) 4.0 - 5.6 % Estimated Average Glucose 120 mg/dL MARTITA AJ ([place]) Comment: The ADA recommends reporting an estimated Average Glucose (eAG) with all Hemoglobin A1c results using the equation derived from a study of 507 normal and diabetic adults. Minority populations were underrepresented and children were not included. (Diabetes Care 31:3574-9999, 2008). The eAG is not equivalent to a fasting glucose. Blood 04/03/2024 6:49 AM SQUARE DANCE CALLER 04/03/2024 6:55 AM SQUARE DANCE CALLER us Gil Mcmanus MD LAB BLOOD ORDERABLES Final Resul t MARTITA AJ ([place]) 1 [facility] [email or web address] [address] * (ABNORMAL) Lipid panel (04/03/2024 6:49 AM SQUARE DANCE CALLER) Cholesterol 199 30 - 199 mg/dL Comment: [...] last revised on 2017. Chol/HDL ratio 3 NIKHIL AJ (JÚNIOR) Blood 04/03/2024 6:49 AM SQUARE DANCE CALLER 04/03/2024 6:55 AM SQUARE DANCE CALLER us Gil Mcmanus MD LAB BLOOD ORDERABLES Final Resul t MARTITA AJ (JÚNI[place]) 1 [facility] of Laboratories [place], [place] [id number] * (ABNORMAL) Comprehensive metabolic panel (04/03/2024 6:49 AM SQUARE DANCE CALLER) Sodium 140 135 - 145 mmol/L Potassium, pl 3.5 3.3 - 4.9 mmol/L MARTITA AJ (JÚNIOR) Chloride 109 97 - 110 mmol/L [facility] (JÚNIOR) [...] classification and Diagnosis of Diabetes Diabetes Care 202; 46: S19-S40. Current interpretive data was last [...] [facility] (J[facility]NIOR) Blood 04/03/2024 6:49 AM SQUARE DANCE CALLER 04/03/2024 6:55 AM SQUARE DANCE CALLER us Gil Mcmanus MD LAB BLOOD ORDERABLES Final Resul t [facility] ([place]) 1 [facility] [place] [address] * XR Chest PA Lateral 2 Views (03/22/2024 6:38 AM SQUARE DANCE CALLER) Anatomical Region Laterality Modality Body, Chest N/A Computed Radiogr aphy 03/25/2024 3:09 PM SQUARE DANCE CALLER Narrative 03/25/2024 3:13 PM SQUARE DANCE CALLER EXAM DESCRIPTION: XR CHEST PA LATERAL 2 [...] Neville Mejia M.D. AG: AG Report ID: [id number] Reading Location: [id number] Procedure Note Neville Mejia MD - 03/25/2024 [...] Neville Mejia M.D. AG: AG Report ID: [id number] Reading Location: [id number] Gil Mcmanus MD IMG XR PROCEDURES Final Result * eGFR (03/22/2024 6:25 AM SQUARE DANCE CALLER) eGFR 73 >=60 mL/min/1. 73 m2 Comment: [...] last reviewed 2020. Blood 03/22/2024 6:25 AM SQUARE DANCE CALLER 03/22/2024 6:52 AM SQUARE DANCE CALLER us Gil Mcmanus MD LAB BLOOD ORDERABLES Final Resul t [facility] [place] 1 [facility] [place] [address] * Pro B-type natriuretic peptide (03/22/2024 6:25 AM SQUARE DANCE CALLER) NT-proBNP <36 <=300 pg/mL Comment: Interpretive Comments: [...] Revised Date: 2017. Blood 03/22/2024 6:25 AM SQUARE DANCE CALLER 03/22/2024 6:52 AM SQUARE DANCE CALLER Gil Mcmanus MD LAB BLOOD ORDERABLES Final Resul t [facility] ([place]) 1 [facility] [email or web address] [address] * (ABNORMAL) Vitamin D 25 hydroxy (03/22/2024 6:25 AM SQUARE DANCE CALLER) Vitamin D 25-OH 11(L) 30 - 80 ng/mL Blood 03/22/2024 6:25 AM SQUARE DANCE CALLER 03/22/2024 6:52 AM SQUARE DANCE CALLER us Luiza Gee NP LAB BLOOD ORDERABLES Fi nal Result [facility] ([place]) 1 [facility] [email or web address] [address] * (ABNORMAL) TSH (03/22/2024 6:25 AM SQUARE DANCE CALLER) Thyroid Stimulating Hormone 5.23(H) 0.30 - 4.20 mcIUnit/mL Blood 03/22/2024 6:25 AM SQUARE DANCE CALLER 03/22/2024 6:52 AM SQUARE DANCE CALLER Luiza Gee MAINSPRING BARREL ASSEMBLY CLEANER LAB BLOOD ORDERABLES Fi nal Result Performing Organization Address City/State/[facility] Co de Phone Number MARTITA Hernandez[place]) 1 [facility] [place] [employer] [place] [address] * T4, free (03/22/2024 6:25 AM SQUARE DANCE CALLER) Free T4 0.91 0.90 - 1.70 ng/dL Blood 03/22/2024 6:25 AM SQUARE DANCE CALLER 03/22/2024 6:52 AM SQUARE DANCE CALLER Luiza Gee MAINSPRING BARREL ASSEMBLY CLEANER LAB BLOOD ORDERABLES Fi nal Result Performing Organization Address [facility] de Phone Number MARTITA AJ ([place]) 1 [facility] [place] [place] [address] * Magnesium (03/22/2024 6:25 AM SQUARE DANCE CALLER) Magnesium 1.5 1.4 - 2.5 mg/dL Blood 03/22/2024 6:25 AM SQUARE DANCE CALLER 03/22/2024 6:52 AM SQUARE DANCE CALLER Bravo Macdonald MD LAB BLOOD ORDERABLES Final Result Performing Organization Address [facility] de Phone Number MARTITA AJ ([place]) 1 [facility] [place] [employer] [place] [address] * (ABNORMAL) Hemoglobin A1c (03/22/2024 6:25 AM SQUARE DANCE CALLER) Hgb A1C 5.8(H) 4.0 - 5.6 % Estimated Average Glucose 120 mg/dL MARTITA AJ ([place]) Comment: The ADA recommends reporting an estimated Average Glucose (eAG) with all Hemoglobin A1c results using the equation derived from a study of 507 normal and diabetic adults. Minority populations were underrepresented and children were not included. (Diabetes Care 31:5647-5811, 2008). The eAG is not equivalent to a fasting glucose. Blood 03/22/2024 6:25 AM SQUARE DANCE CALLER 03/22/2024 6:52 AM SQUARE DANCE CALLER Gil Mcmanus MD LAB BLOOD ORDERABLES Final Resul t MARTITA AJ ([place]) 1 [facility] [place] [place] [address] * Vitamin B12 (03/22/2024 6:25 AM SQUARE DANCE CALLER) Vitamin B12 377 230 - 1,250 pg/mL Blood 03/22/2024 6:25 AM SQUARE DANCE CALLER 03/22/2024 6:52 AM SQUARE DANCE CALLER Luiza Gee MAINSPRING BARREL ASSEMBLY CLEANER LAB BLOOD ORDERABLES Fi nal Result Performing Organization Address [facility] Co de Phone Number MARTITA AJ ([place]) 1 [facility] [place] [place] [address] * (ABNORMAL) Phenytoin level, total (03/22/2024 6:25 AM SQUARE DANCE CALLER) [facility] Phenytoin 3.1(L) 10.0 - 20.0 mcg/mL Comment: Therapeutic range: 10-20 ug/mL Toxic: Greater than or equal to 20ug/mL Current interpretive data was last revised on 2014 Blood 03/22/2024 6:25 AM SQUARE DANCE CALLER 03/22/2024 6:52 AM SQUARE DANCE CALLER Luiza Gee NP LAB BLOOD ORDERABLES Fi nal Result Performing Organization Address City/[facility]/ZIP Co de Phone Number MARTITA AJ ([place]) 1 [facility] [place] [employer] [place] [address] * (ABNORMAL) Lipid panel (03/22/2024 6:25 AM SQUARE DANCE CALLER) Cholesterol 189 30 - 199 mg/dL Comment: [...] on 2017. Triglycerides 197(H) <=149 mg/dL MARTITA HUERTA) Comment: Interpretive Data Ages < or = [...] 3. Benji Szymanski et al. RANDOLPH Cardiol. 2019June 13;5(5):540-548. doi: 10.1001/[email or web address].2020.0013 Current Interpretive Data was last revised on 2023. Non-HDL Cholesterol 108 mg/dL MARTITA AJ (JÚNIOR) Comment: Interpretive Data [...] last revised on 2017. Chol/HDL ratio 2 NIKHIL AJ (JÚNIOR) Blood 03/22/2024 6:25 AM SQUARE DANCE CALLER 03/22/2024 6:52 AM SQUARE DANCE CALLER us Gil Mcmanus MD LAB BLOOD ORDERABLES Final Resul t MARTITA AJ ([place]) 1 [facility] [place] [address] * (ABNORMAL) Comprehensive metabolic panel (03/22/2024 6:25 AM SQUARE DANCE CALLER) Sodium 140 135 - 145 mmol/L Potassium, pl 3.4 3.3 - 4.9 mmol/L [facility] (J[facility]) Chloride 106 97 - 110 mmol/L [facility] ([place]) CO2 19(L) 22 - 32 [...] [facility] (JÚNI[place]) Blood 03/22/2024 6:25 AM SQUARE DANCE CALLER 03/22/2024 6:52 AM SQUARE DANCE CALLER us Gil Mcmanus MD LAB BLOOD ORDERABLES Final Resul t [facility] ([place]) 1 [facility] [place] [address] * CT Abdomen Pelvis WO Contrast (03/19/2024 10:35 AM SQUARE DANCE CALLER) Anatomical Region Laterality Modality Body N/A Computed Tomogra phy 03/19/2024 11:1 0 AM SQUARE DANCE CALLER Impressions 03/19/2024 12:04 PM SQUARE DANCE CALLER 1. Interval increase in size of the [...] Fadi Reilly M.D. Narrative 03/19/2024 12:04 PM SQUARE DANCE CALLER EXAMINATION: Computed tomography of the abdomen and [...] it. Electronically signed by: Fadi Reilly M.D. us Ravi Umana MD IM CT PROCEDURES Final Result * eGFR (02/28/2024 6:21 AM SQUARE DANCE CALLER) eGFR 66 >=60 mL/min/1. 73 m2 Comment: [...] last reviewed 2020. Blood 02/28/2024 6:21 AM SQUARE DANCE CALLER 02/28/2024 6:25 AM SQUARE DANCE CALLER Bravo Macdonald MD LAB BLOOD ORDERABLES Final Result Performing Organization Address City/[facility]/ZIP Co de Phone Number [facility] ([place]) 1 [facility] [place] [employer] [place] [address] * Magnesium (02/28/2024 6:21 AM SQUARE DANCE CALLER) Magnesium 1.5 1.4 - 2.5 mg/dL Blood 02/28/2024 6:21 AM SQUARE DANCE CALLER 02/28/2024 6:25 AM SQUARE DANCE CALLER Bravo Macdonald MD LAB BLOOD ORDERABLES Final Result Performing Organization Address [facility] Co de Phone Number [facility] ([facility] 1 [facility] [place] [place] [address] * (ABNORMAL) Basic metabolic panel (02/28/2024 6:21 AM SQUARE DANCE CALLER) Sodium 133(L) 135 - 145 mmol/L Potassium, pl 3.7 3.3 - 4.9 mmol/L [facility] ([place]) Chloride 103 97 - 110 mmol/L [facility] ([place]) CO2 18(L) 22 - 32 mmol/L [facility] ([place]) Anion gap 11 2 - 15 mmol/L [facility] ([place]) BUN 28(H) 6 - 25 mg/dL [facility] ([place]) Creatinine 1.01 0.60 - 1.10 mg/dL [facility] ([facility]) Glucose 121 70 - 199 mg/dL [facility] (JÚNIOR) Comment: Interpretive Data Fasting glucose >/= [...] 2022. Calcium 9.0 8.5 - 10.3 mg/dL [facility] (JÚNIOR) Blood 02/28/2024 6:21 AM SQUARE DANCE CALLER 02/28/2024 6:25 AM SQUARE DANCE CALLER Bravo Macdonald MD LAB BLOOD ORDERABLES Final Result MARTITA [facility] ([place]) 1 [facility] [place] [address] * COLONOSCOPY REPORT (10/02/2015) Anatomical Region Laterality Modality Other Narrative 10/02/2015 Ordered by an unspecified provider. Historical Provider GI PROCEDURE ORDERABLES F inal Result from Last 3 Months or Most Recently Relevant to Health Maintenance Insurance MEDICARE Scary Mommy OPEN ACCESS MEDICARE MEDICARE Advance Directives For more information, please contact: [phone] * Full Code (Latest Code Status on [...] 5:06 PM 10/08/2023 7:27 PM Care Teams Senior Control Systems Engineer Relationship Specialty Start Date End Date Luiza Gee NP [address] [place] [address] [facility] [address] [place] [address] PCP - General Nurse Practitioner 03/14/24 Tyrese Salinas MD [address] [facility] [address] [place] [address] Consulting Physician Gastroenterology 03/31/17 Blanco Moise MD 2 [facility] [address] [place] [address] Referring Physician Gastroenterology 12/04/22 Jamari Haile Jr., MD [address] [facility] [phone] [place] [address] Consulting Physician Colon and Rectal Surgery 01/15/23 Bravo Macdonald MD [address] [place] [address] Consulting Physician Gastroenterology 02/17/23 [place] [address] [address] Consulting Physician Nephrology 07/17/23
--- OUTSIDE RECORDS SUMMARY | 2024-05-25 18:21 | XMS_ITS | Clinical Summary ---
Author Organization [employer] [place] Address [address] [place] [id number] Care Team Providers Care Conservation Officer Name Role Phone Juma Orosco MD Primary Care Provider Allergies Active Allergy Reactions Criticality Noted Date Comments Acetaminophen Anaphylaxis,Unknown High 12/28/2023 Bacitracin-Polymyxin B Hives High 03/03/2022 Cephalexin Anaphylaxis,Hives High 08/10/2023 Tolerated meropenem 09/07/23 Clarithromycin Anaphylaxis,Hives High 03/03/2022 Clindamycin Hives High 03/21/2022 Codeine Anaphylaxis High 09/02/2015 Patient tolerages oxycodone without issues per Dr Hoover Tolerates morphine Diphenhydramine Unknown 12/28/2023 Fentanyl Seizure,Other (See Comments) High 09/02/2015 Seizures Gadolinium-Containing Contrast Media Shortness of Breath/Wheezing High 04/29/2021 Pt states MRI contrast triggers asthma attacks Ibuprofen Anaphylaxis,Hives,O ther (See Comments) High 06/09/2016 Was told to not take NSAIDs due to history of Crohn's; has never had anaphylactic reaction Latex Hives High 09/02/2015 Metoclopramide Other (See Comments),Seizure High 07/24/2021 Seizures Metronidazole Anaphylaxis High 08/10/2023 Penicillins Anaphylaxis,Hives,O ther (See Comments) High 01/27/2016 Tolerated meropenem 09/07/23 Polyethylene Glycol 3350 Hives High 12/02/2022 Raspberry Anaphylaxis High 06/09/2016 Sulfa (Sulfonamide Antibiotics) Other (See Comments),Rash Medium 12/28/2023 Sulfate Ion Anaphylaxis High 09/02/2015 Tramadol Nausea and Vomiting Medium 12/07/2015 Medications albuterol (PROVENTIL,LUCINA WILLIAN) 2.5 mg /3 mL (0.083 %) Solution for Nebulization Take 2.5 mg by inhalation 3 times daily as needed for Shortness of Breath, Wheezing or Respiration. 3 Active albuterol sulfate HFA 90 mcg/actuation aerosol inhaler Take 2 Puffs by inhalation 3 times daily as needed for Respiration, Shortness of Breath or Wheezing. 2 Active carvediloL (COREG) 6.25 mg tablet Take 6.25 mg by mouth 2 times daily with meals. Active cholecalciferol, vitamin D3, 1,000 unit Take 25 mcg by mouth daily. Active cyanocobalamin 1,000 mcg Tablet Take 5,000 mcg by mouth daily. Active loperamide (IMODIUM) 2 mg capsule Take 3 Capsules by mouth 4 times daily. Active magnesium oxide (MAG-OX) 400 mg (241.3 mg magnesium) tablet Take 400 mg by mouth 2 times daily. 4 Active montelukast (SINGULAIR) 10 mg tablet Take 10 mg by mouth daily. Every day 3 Active naloxone (NARCAN) 4 mg/spray [place], Non-Aerosol Administer 1 [place] in each nostril one time as needed. 4 025 Active omeprazole (PriLOSEC) 20 mg Capsule, Delayed Release(E.C.) Take 40 mg by mouth 2 times daily. Active ondansetron (ZOFRAN ODT) 4 mg Tablet, Rapid Dissolve Take 4 mg by mouth every 8 hours as needed for Nausea/Emesis. 3 Active Dilantin Infatabs 50 mg Tablet, Chewable Take 300 mg by mouth 3 times daily. 4 Active potassium chloride (KLOR-CON M20) 20 mEq Extended Release tablet Take 40 mEq by mouth 3 times daily. 2 Active Skyrizi 360 mg/2.4 mL (150 mg/mL) wearable injector 360 mg by See Admin Instructions route every 8 weeks. 4 Active spironolactone (ALDACTONE) 25 mg tablet Take 1 Tablet by mouth daily. 5 Active atorvastatin (LIPITOR) 20 mg tablet Take 1 Tablet by mouth daily. 5 Active furosemide (LASIX) 40 mg tablet Take 40 mg by mouth 2 times daily. Active Encounters Date Type Department Care Team Description 05/10/2024 Telephone [facility] [address] [place] [address] Monica Horvath, MAIRA Other (Updated report) 05/08/2024 10:05 AM CDT - 05/08/2024 11:59 PM CDT Hospital Encounter [facility] [address] [place] [address] Monica Horvath ANP Henricks, Leisha L parquet floor layer Disposition: Home or Self Care 05/01/2024 External Device Data STL ABSTRACTION Provider, Abstract 04/24/2024 External Device Data STL ABSTRACTION Provider, Abstract 04/23/2024 External Device Data STL ABSTRACTION Provider, Abstract 04/20/2024 External Device Data STL ABSTRACTION Provider, Abstract 04/19/2024 External Device Data STL ABSTRACTION Provider, Abstract 04/17/2024 External Device Data STL ABSTRACTION Provider, Abstract 04/11/2024 9:22 AM ORE SAMPLER - 04/11/2024 11:59 PM ORE SAMPLER [facility] [place] [facility] [address] [place] [address] Monica Horvath, Maddy Lau, parquet floor layer Disposition: Home or Self Care 04/03/2024 External Device Data STL ABSTRACTION Provider, Abstract 03/13/2024 External Device Data STL ABSTRACTION Provider, Abstract 03/08/2024 2:00 PM ORE SAMPLER - 03/08/2024 11:59 PM ORE SAMPLER Hospital Encounter [facility] [address] [place] [address] Monica Horvath, Maddy Lau, parquet floor layer Disposition: Home or Self Care 03/07/2024 External Device Data STL ABSTRACTION Provider, Abstract 02/27/2024 External Device Data STL ABSTRACTION Provider, Abstract from Last 3 Months Family History Medical History Relation Name Comments Cancer Father Relation Name Status Comments Father Social History Tobacco Use Types Packs/Day Years Used Date Smoking Tobacco: Former Cigarettes Q uit: 02/14/2020 Passive Smoke Exposure: Never Smokeless Tobacco: Never Tobacco Cessation:Counseling Given: Not Answered Alcohol Use Standard Drinks/Week Comments Never 0 (1 standard drink = 0.6 oz pur e alcohol) Feeling Safe Answer Date Recorded Are you in a relationship wi th someone who hurts you emotionally and/or physically? No 12/28/2023 Comments Unknown Sex and Gender Information Value Date Recorded Sex Assigned at Not on file Legal Sex Female 9:22 PM CDT Gender Identity Not on file Sexual Orientation Not on file Last Filed Vital Signs Vital Sign Reading Time Taken Comments Blood Pressure 123/77 05/08/2024 10:00 AM CDT Pulse 103 05/08/2024 10:00 AM CDT Temperature 36.5 C (97.7 F) 05/08/2024 10:00 AM CDT Respiratory Rate 18 05/08/2024 10:00 AM CDT Oxygen Saturation - - Inhaled Oxygen Concentration - - Weight 105.2 kg (232 lb) 05/08/2024 10:00 AM CDT Height 165.1 cm (5' 5 ) 12/28/2023 8:00 AM ORE SAMPLER Body Mass Index 38.61 12/28/2023 8:00 AM ORE SAMPLER Plan of Treatment Upcoming Encounters Date Type Department Care Team (Late st Contact Info) Description 07/01/2024 10:30 AM CDT Appointment [facility] [address] [place] [phone] Monica Horvath, MAIRA [address] [place] [address] Health Maintenance Due Date Last Done Comments Pre-Diabetes and Diabetes Screening 1970 HEPATITIS B VACCINES (1 of 3 - 19+ 3-dose series) 02/07/1988 FIT-DNA Q 3 years 2014 FIT/FOBT Q 1 year 2014 Flex Sig/CT Colonography Q 5 years 2014 ZOSTER VACCINE (1 of 2) 2019 COVID-19 Vaccine (2023-2 5 season) 2023 12/18/2020, 06/01/2020, 05/04/2020 BREAST CANCER SCREENING 06/05/2024 06/06/2023, 06/05 COLORECTAL SCREENING 03/03/2031 03/03/2021, 01/20/2017, 01/19/2017 Colorectal Cancer Screening 03/03/2031 DTAP/TDAP/TD VACCINES (3 - T d or Tdap) 01/25/2032 01/24/2022, 05/18/2015 INFLUENZA VACCINE Completed 11/09/2023, , 12/17/2020, Additional history exists Insurance MEDICARE PART A AND B Care Teams Conservation Officer Relationship Specialty Start Date End Date Juma Orosco MD [address] [place] [address] [place] [address] PCP - General Internal Medicine 07/06/23
--- OUTSIDE RECORDS SUMMARY | 2024-05-25 18:21 | XMS_ITS ---
Author Organization [facility] Address [address] [address] Phone Care Team Providers Care Service Technician Name Role Phone Kaitlyn Benavides APRN, [employer] DEAN Unavailable [phone] Maggie Orosco MD Primary Care Provider [phone] Blanco Moise MD Unavailable [phone] Harjeet Cantor MD Unavailable Kendra Gabriel ACOUSTICS TEACHER, [employer] DEAN Unavailable [phone] [place] Chronic Condition Monitoring Status:Enrolled (Active) Start date:03/13/2024 Enrollment date:03/13/2024 Related social drivers of health:Social Connections, Alcohol Use, Tobacco Use, Financial Resource Strain, Depression, Stress, Physical Activity, Food Insecurity, Transportation Needs, Housing Stability, Utilities Continued Care and Services Coordination
--- OUTSIDE RECORDS SUMMARY | 2024-05-25 18:21 | XMS_ITS | Data Portability ---
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 ProBNP normal in the setting of PMI. Heart failure precautions discussed. At future visit we will consider addition of SGLT2 inhibitors. MATT: Discussed relationship between untreated sleep apnea and heart failure. Follows with sleep Medicine at [facility], Dr. Mcallister. Hypertension: Continue carvedilol 6.25 mg b.i.d and spironolactone 6.25 mg b.i.d.. Based on home blood pressure readings we will consider addition of angiotensin modulating agents. Hypokalemia : Given up titration of Lasix, change potassium chloride to 40 mEq t.i.d.. Obtain follow-up CMP, proBNP and magnesium levels. COVID-19: Recommended reaching out to PCP's office [facility] for discussions regarding Paxlovid given ongoing fevers. We will request a follow-up in 2 weeks for ongoing management of heart failure with preserved ejection fraction. [email or web address] Not available 03/26/2024 13:33:46 04/09/2024 04/09/2024 Acute on chronic exacerbation of heart failure with preserved ejection fraction: Clinically appears volume overloaded. ProBNP normal per BMI greater than 38. Up titrate furosemide to 80 mg q.a.m. and 40 mg q.p.m.. Hypokalemia. Up titrate potassium chloride to 60 mEq t.i.d. given previous history of hypokalemia in light of Crohn's disease, stoma and GI blood losses. Chest pain: Low risk findings on recent Lexiscan nuclear stress test. Concern for balanced ischemia given risk factor profile. Discussed options of coronary CTA versus cardiac catheterization. In light of contrast allergy, patient hesitant to proceed at this juncture. In the interim start aspirin 81 mg daily. P.r.n. nitroglycerin prescribed with usage reviewed. ER precautions by EMS in the interim discussed at length. Mixed hyperlipidemia : Triglycerides significantly elevated. After shared decision-making initiate atorvastatin 20 mg daily. Plan follow-up in 2 weeks with comprehensive metabolic panel prior. [email or web address] Not available 04/09/2024 10:21:42 04/23/2024 04/23/2024 Precordial chest pain : Concern exists for false negatives with balanced ischemia on pharmacologicnuclear stress test. Given crescendo-decrescendo angina with ongoing symptoms we discussed options of anatomic evaluation for CAD. Patient with contrast allergy. I did discuss with Interventional Cardiology at [facility] in [facility] and after shared decision-making we will refer her for a cardiac catheterization and possible PCI. We reviewed rationale, benefits, risks, alternatives. We reviewed red flag symptoms to seek urgent medical attention via EMSin the interim. Acute on chronic exacerbation of heart failure preserved ejection fraction: Continue current dose of furosemide 80 mg q.a.m. and 40 mg q.p.m. along with spironolactone 25 mg daily. We will request a right heart catheterization at the time of coronary angiography for accurate estimation of her filling pressures to Debbie diuretic therapy given frequent episodes of hypokalemia and hypomagnesemia which is confounded by her ongoing GI electrolyte losses. Preoperative cardiac risk stratification: Patient reports plans for upcoming stoma reversal surgery. Due to active episodes of chest pain, unable to risk stratify from a cardiac standpoint until anatomic evaluation for CAD complete. We did discuss performance of PCI and need for dual antiplatelet therapy may delay her surgical procedure by up to 3-6 months but untreated coronary artery disease with escalating symptoms does pose high perioperative surgical risk We will request a follow-up in approximately 4 weeks' time. Labs: 04/22/2024: Sodium 140, potassium 3.6, chloride 107, CO2 26, BUN 20, creatinine 1.01, magnesium 1.7, HGB 10.8, WBC 9.9, platelets 205 03/22/2024: Sodium 140, potassium 3.4, chloride 106, CO2 19, BUN 26, creatinine 0.93, proBNP less than 36, total cholesterol 189, TG 197, HDL 81, LDL 76, HGB A1c 5.8 Diagnostics: Twelve lead EKG 03/05/2024: Sinus rhythm, RSR pattern, left atrial enlargement Transthoracic echocardiogram 09/09/2023: LVEF 63%, normal LV filling pressures with diastolic dysfunction, RVSP 36 mmHg, normal myocardial strain, normal IVC Lexiscan nuclear stress test 03/31/2023: LVEF greater than 70%, no scintigraphic evidence of myocardial ischemia Sleep study, April 2022: Severe MATT with AHI of 45.1 Chest x-ray 03/22/2024: 9 mm nodular opacity overlying the left 6th rib, no acute cardiopulmonary process [email or web address] Not available 04/23/2024 11:13:42 Plan of Treatment Reminders Order Date Submit Date Provider Last Modified By Organization Details Last Modified Time Details Appointments ANY 15 2024 08:45A APPLE ANAYA Not available Not available Not available ANY 2024 09:30A Nessa Mcmanus MD Not available Not available Not available ANY 15 2024 09:45A APPLE ANAYA Not available Not available Not available Lab drug scree n, urine 2024 025 ROCHELLE In-Office Order, Internal Use Only DO Not Attach Compendium DO Not Attach Compendium, Do Not Delete/merge, [id number] 04/30/2024 16:25:41 CMP, serum or plasm a 2024 025 ROCHELLE Bell [facility], [address], [address], 04/16/2024 14:09:10 CMP, serum or plasm a 2024 025 florencia [place] [facility], [address], [address], 04/29/2024 10:16:47 pro BNP (pro B-typ e natri ureti c pepti de), serum or plasm a 2024 025 florencia [place] [facility], [address], [address], 04/29/2024 10:16:47 magne sium, serum or plasm a 2024 025 florencia [place] [facility], [address] [place], [address], 04/29/2024 10:16:47 Referral home healt h refer ral - Patie nt needs exten ding home healt h hours due to exten t of herni a and worse britt state of ostom y 2024 025 [facility], [address] [place], [address], 05/24/2024 15:50:45 Procedures None recor ded. Surgeries combi marilee right and left heart marshall teriz ation (SURG ) 2024 025 [id number] Alex Leary, [facility], [address], 04/30/2024 12:02:42 Imaging None recor ded. Medication Orders Aldac tone 25 mg table t 2024 025 [facility] #[id number], [address], [place], [id number], 05/21/2024 10:24:20 Feliberto tin Infat abs 50 mg chewa ble table t 2024 025 [facility] #00557, [address], [place], [id number], 04/30/2024 15:37:05 Incru se Ellip ta 62.5 mcg/a ctuat ion powde r for inhal ation 2024 025 ROCHELLE [facility] #73425, [address], [place], [id number], 04/30/2024 15:40:51 nitro glyce rin 0.4 mg subli ngual table t 2024 [facility], [address], [place], [id number], 04/09/2024 10:14:47 Enter ic Coate d Aspir in 81 mg table t,del ayed relea se 2024 [place] [facility] #49264, [address], [place], [id number], 04/09/2024 10:17:12 atorv astat in 20 mg table t 2024 025 [place] [facility] #20050, [address], [place], [id number], 04/09/2024 10:17:12 furos emide 40 mg table t 2024 025 [email or web address] [facility]24887, [address], [place], [id number], 04/09/2024 10:14:18 potas sium chlor rika ER 20 mEq table t,ext ended relea se 2024 025 [place] [facility] #35546, [address], [place], [id number], 04/09/2024 10:14:46 furos emide 40 mg table t 2024 025 [place] [facility] #86242, [address], [place], [id number], 03/26/2024 10:30:19 potas sium chlor rika ER 20 mEq table t,ext ended relea se 2024 025 [facility] #39444, [address], [place], [id number], 03/26/2024 10:30:27 Patient TargetsNo targets recorded. Patient Instructions Encounter Date Encounter Id Patient Instructions Last Modified By Organization Details Last Modified Time 04/09/2024 [id number] A healthy lifestyle: care instructions [email or web address] Not available 04/09/2024 10:21:58 04/23/2024 [id number] A healthy lifestyle: care instructions [email or web address] Not available 04/23/2024 10:12:13 04/30/2024 [id number] Plan of care has been discussed with patient including expected therapeutic benefits and potential side effects of prescribed medication and treatments. Patient verbalizes understanding and is in agreement with the plan of care. Patient was instructed to keep all scheduled appointments and contact the clinic for any additional problems. Health Maintenance: - CRC screening (45-75):Due at 45 years. colostomy - Osteoporosis screening: Due at 65. - Lipid screening (>45 unless additional risk factors): ordered - HIV : declined - HepC: declined -Eye exam: -Dental Exam: 2024 - Immunizations: - Influenza: Due. 11/09/23 - Prevnar 20: Due at 65. - Tdap/Td ([id number]): 01/24/22 - Zoster (>60):Due at 60. - COVID-19: 1, 06/01/20, 05/04/20 -Labs ordered this visit: vit d, vitamin b12, phenytoin, lipid panel, thyroid panel [email or web address] Not available 05/19/2024 20:24:34 05/21/2024 [id number] A healthy lifestyle: care instructions [email or web address] Not available 05/24/2024 13:45:30 Reason for Referral Home Health Referral for Ost harjeet patient problem Patient needs extending home health hours due to extent of hernia and worsening state of ostomy Referring Physician: Luiza Gee, Family Medicine, Encounter Date: 04/30/2024 Results Created Date Observation Date Name Description Value Unit Range Abnormal Flag Note LastModifiedBy Organization Detail LastModifiedTime 03/21/19 25 03/21/2024 influ marisol virus A + B + SARS- CoV-2 (COVI D19) Ag panel , rapid IA, upper respi rator y speci men Rapid SARS CoV 2 Ag, QL IA, respiratory specimen positi ve Not Available In-Office Order Internal Use Only DO Not Attach Compendium DO Not Attach Compendium, Do Not Delete/merge, [id number] 03/20/2024 15:41:25 03/21/19 25 03/21/2024 influ marisol virus A + B + SARS- CoV-2 (COVI D19) Ag panel , rapid IA, upper respi rator y speci men Flu B negati ve Not Available In-Office Order Internal Use Only DO Not Attach Compendium DO Not Attach Compendium, Do Not Delete/merge, 03/20/2024 15:41:25 03/21/19 25 03/21/2024 influ marisol virus A + B + SARS- CoV-2 (COVI D19) Ag panel , rapid IA, upper respi rator y speci men Flu A negati ve Not Available In-Office Order Internal Use Only DO Not Attach Compendium DO Not Attach Compendium, Do Not Delete/merge, 03/20/2024 15:41:25 05/01/1904/30/2024 drug scree n, urine Methamphetam ine Negati ve Not Available In-Office Order Internal Use Only DO Not Attach Compendium DO Not Attach Compendium, Do Not Delete/merge, 04/30/2024 15:46:54 05/01/19 25 04/30/2024 drug scree n, urine THC Negati ve Not Available In-Office Order Internal Use Only DO Not Attach Compendium DO Not Attach Compendium, Do Not Delete/merge, 04/30/2024 15:46:54 05/01/19 25 04/30/2024 drug scree n, urine Cocaine (Maggie) Negati ve Not Available In-Office Order Internal Use Only DO Not Attach Compendium DO Not Attach Compendium, Do Not Delete/merge, 04/30/2024 15:46:54 05/01/19 25 04/30/2024 drug scree n, urine Benzodiazepi ne (Bzo) Negati ve Not Available In-Office Order Internal Use Only DO Not Attach Compendium DO Not Attach Compendium, Do Not Delete/merge, 04/30/2024 15:46:54 05/01/19 25 04/30/2024 drug scree n, urine Methadone (Mtd) Negati ve Not Available In-Office Order Internal Use Only DO Not Attach Compendium DO Not Attach Compendium, Do Not Delete/merge, 04/30/2024 15:46:54 05/01/19 25 04/30/2024 drug scree n, urine Buprenorphin e (Bup) Negati ve Not Available In-Office Order Internal Use Only DO Not Attach Compendium DO Not Attach Compendium, Do Not Delete/merge, 04/30/2024 15:46:54 05/01/1904/30/2024 drug scree n, urine Oxycodone (Oxy) Negati ve Not Available In-Office Order Internal Use Only DO Not Attach Compendium DO Not Attach Compendium, Do Not Delete/merge, 04/30/2024 15:46:54 05/01/1904/30/2024 drug scree n, urine Barbiturates (Bar) Positi ve Not Available In-Office Order Internal Use Only DO Not Attach Compendium DO Not Attach Compendium, Do Not Delete/merge, 04/30/2024 15:46:54 05/01/19 25 04/30/2024 drug scree n, urine MDMA (Ecstacy) Negati ve Not Available In-Office Order Internal Use Only DO Not Attach Compendium DO Not Attach Compendium, Do Not Delete/merge, 04/30/2024 15:46:54 05/01/19 25 04/30/2024 drug scree n, urine Amphetamines (Amp) Negati ve Not Available In-Office Order Internal Use Only DO Not Attach Compendium DO Not Attach Compendium, Do Not Delete/merge, 04/30/2024 15:46:54 05/01/19 25 04/30/2024 drug scree n, urine Opiates (opi) Negati ve Not Available In-Office Order Internal Use Only DO Not Attach Compendium DO Not Attach Compendium, Do Not Delete/merge, [id number] 04/30/2024 15:46:54 05/01/1904/30/2024 drug scree n, urine Phencyclidin e (Pcp) Negati ve Not Available In-Office Order Internal Use Only DO Not Attach Compendium DO Not Attach Compendium, Do Not Delete/merge, [id number] 04/30/2024 15:46:54 05/01/19 25 04/30/2024 drug scree n, urine Tricyclic Antidepressa nts Negati ve Not Available In-Office Order Internal Use Only DO Not Attach Compendium DO Not Attach Compendium, Do Not Delete/merge, 04/30/2024 15:46:54 05/01/19 25 04/30/2024 drug scree n, urine Fentanyl Negati ve Not Available In-Office Order Internal Use Only DO Not Attach Compendium DO Not Attach Compendium, Do Not Delete/merge, [id number] 04/30/2024 15:46:54 03/05/19 25 03/05/2024 elect rocar diogr am No observ ation record ed. ROCHELLE In-Office Order Internal Use Only DO Not Attach Compendium DO Not Attach Compendium, Do Not Delete/merge, [id number] 03/05/2024 11:09:25 03/05/19 elect rocar diogr am No observ ation record ed. [email or web address] Not Available 2024 10:40:43 04/02/19 XR, chest , 2 view No observ ation record ed. [email or web address] [address] [place], [address], 04/02/2024 09:42:10 04/22/1904/21/2024 CT, abdom en + pelvi s, w/ contr ast No observ ation record ed. [email or web address] [address] [place], [address], 04/23/2024 10:25:28 Result Notes None recorded. Problems Name Problem SNOMED Code Status Onset Date Resolution Date Notes Provider Name and Address Organization Details Recorded Time Chronic abdomina l pain 952906518 Completed 201704/20/2018 Maggie Madrigal MD Attn: Accounting ,[address] [place], [address] , [place] - [facility] 9 11:48:21 Seizure 54813458 Completed 201604/26/2017 Maggie Madrigal MD Attn: Accounting ,[address] [place], [address] , [place] - [facility] 8 12:28:51 Disorder of biliary tract 007006703 Active 2017 Not Available [facility] 3 14:22:52 Alkaline phosphat ase above referenc e range 730194527 Completed 201704/26/2017 Maggie Madrigal MD Attn: Accounting ,[address] [place], [address] , [facility] - [facility] 8 12:28:40 Leukocyt osis 350371258 Completed 201704/20/2018 Maggie Madrigal MD Attn: Accounting ,[address] [place], [address] , [place] - [facility] 9 11:48:16 Gastroes ophageal reflux disease without esophagi tis 188413956 Active 2016 Not Available [facility] 3 14:22:52 Nasal infectio n 740252221 Completed 201704/20/2018 Maggie Madrigal MD Attn: Accounting ,[address] [place], [address] , [place] - [facility] 9 11:48:26 Dyspnea 844505148 Active 2022 echo 02/2022-d iastolic dys with myxomato us valve changes - refered to cardio Not Available [facility] 3 14:22:52 Congesti ve heart failure 58462425 Active 2022 due to diastoli c dys - sees cardio Not Available [facility] 3 14:22:53 Dog bite of hand 862204446 Active 2022 Not Available [facility] 3 14:22:52 Hypokale tabitha 87132473 Active 2023 Maggie Madrigal MD Attn: Accounting ,[address] [facility], [place], [address] , [place] [facility] 4 09:53:34 Ileostom y present 378500087 Active 2023 Maggie Madrigal MD Attn: Accounting ,[address] [facility], [place], [address] , [place] [facility] 4 10:30:11 Obstruct ana sleep apnea syndrome 42069033 Active 2024 Gil Mcmanus MD Attn: Accounting ,[address] [facility], [place], [address] , [place] - [facility] 5 10:38:13 Crohn's disease of colon 45315716 Active s/p R/hemico lectomy- -s/p re-do ileocoli c resectio n with end ileostom y 01/05-pt is seeing GI -back on [facility] Maggie Madrigal MD Attn: Accounting ,[address] [facility], [place], [address] , [place] [facility] 3 10:32:02 Seizure disorder 510975395 Active Not Available [facility] 3 14:22:52 Esophagi tis 63148559 Completed 04/26/2017 Maggie Madrigal MD Attn: Accounting ,[address] [place], [address] , [place] - [facility] 8 12:28:58 Rheumato id arthriti s 40425228 Active managed by GI Not Available [facility] 3 14:22:53 Smoker 03097014 Active -quit already- CT chest on 12/29 -tiny pulmonar y nodule and small airway disease, seen by Dr.Ahmad Maggie Madrigal MD Attn: Accounting ,[address] [facility], [place], [address] , [place] - [facility] 4 10:02:30 Chronic mastitis 98389055 Active seeing speciali st Not Available [facility] 3 14:22:52 Fatigue 00474194 Active Not Available [facility] 3 14:22:53 Vitamin B12 deficien cy (non anemic) 32947347 Active Not Available [facility] 3 14:22:53 Vitamin D deficien cy 01227048 Active Not Available [facility] 3 14:22:53 Obesity 060881634 Active Not Available [facility] 3 14:22:53 Multiple nodules of lung 079800563 Active 2016 seen by / CT chest 05/01 Not Available [facility] 14:22:53 Notes:Some problems listed i n Document: #[id number] could not be added to this patient's chart. Please review this document and add these problems to the patient's chart manually as needed. Problem Notes None recorded. Procedures Surgical History Date Name Laterality Status Provider Name and Address Organization Details Recorded Time 024 attention to colostomy completed Richa Tovar [place] [facility] 11/09/2023 08:54:43 023 ileostomy operation completed Florence Ely MA [facility] - [facility] 03/03/2023 14:11:29 017 Colonoscopy completed Maggie Madrigal MD Attn: Accounting,[address] [place], [address], [facility] - [facility] 01/24/2017 14:41:52 016 EGD completed Bethany Pierce RN [place] - [facility] 02/11/2016 12:17:21 009 Total hysterectomy completed Richa Tovar [place] - [facility] 04/13 12:06:50 Other completed Richa Tovar MA [facility] - [facility] 08/04/2020 08:40:30 Gastrointestinal Surgery completed Tea Whitfield MA [place] - [facility] 06/03/2014 11:02:37 Imaging Results Imaging Date Name Status LastModified by Organization Details LastModified Time 03/05/2024 electrocardiogram completed ROCHELLE In-Offi ce Order Internal Use Only DO Not Attach Compendium DO Not Attach Compendium, Do Not Delete/merge, [id number] 03/05/2024 11:09:25 03/05/2024 electrocardiogram completed [email or web address] Informa tion not available 03/05/2024 10:40:43 04/02/2024 XR, chest, 2 view completed [email or web address] Bell [address] [place], [address], 04/02/2024 09:42:10 04/21/2024 CT, abdomen + pelvis, w/ contrast completed florencia [address] [place], [address], 04/23/2024 10:25:28 Procedure Notes None recorded. Medical Equipment None Reported. Allergies Allergen ID Allergen Name Allergen Category Reaction Reaction Severity Criticality Documentation Date Start Date Code Code System Note Provider Name and Address Organization Details Recorded Time 502239 Keflex medicatio n hives Not available Not available 04/18/2017 53018 7 RxNorm Not Available Not Available Not Available 658703 Product containin g penicilli n (product) medicatio n Not available Not available Not available 04/18/2017 72850 8001 SNOMED Not Available Not Available Not Available 551422 acetamino phen medicatio n anaphylax is severe Not available 04/26/2017 161 RxNorm Not Available Not Available Not Available 670661 clarithro mycin medicatio n anaphylax is severe Not available 04/26/2017 88940 RxNorm Not Available Not Available Not Available 274029 cephalexi n medicatio n anaphylax is severe Not available 04/26/2017 2231 RxNorm Not Available Not Available Not Available 678455 metoclopr amide Not available Not available Not available Not available 04/26/2017 6915 RxNorm Not Available Not Available Not Available 387942 tramadol medicatio n Not available Not available Not available 04/26/2017 15935 RxNorm Not Available Not Available Not Available 152984 fentanyl medicatio n Not available Not available Not available 04/26/2017 4337 RxNorm Not Available Not Available Not Available 190597 metronida zole medicatio n anaphylax is severe Not available 04/26/2017 6922 RxNorm Not Available Not Available Not Available 151899 raspberry extract food,medi cation anaphylax is severe Not available 04/26/2017 44086 69 RxNorm Not Available Not Available Not Available 842495 diphenhyd ramine medicatio n Not available Not available Not available 04/26/2017 3498 RxNorm Other react ions and sever ities : 'Swel ling - Moder ate'. Not Available Not Available Not Available 72624 Tylenol medicatio n Not available Not available Not available 05/29/2014 80618 3 RxNorm Not Available Not Available Not Available 31177 ibuprofen medicatio n anaphylax is severe Not available 05/29/2014 5640 RxNorm Not Available Not Available Not Available 02604 codeine medicatio n anaphylax is severe Not available 06/03/2014 2670 RxNorm Not Available Not Available Not Available 92511 Substance with sulfonami de structure and antibacte rial mechanism of action (substanc e) medicatio n Not available Not available Not available 06/03/2014 47983 8003 SNOMED Not Available Not Available Not Available Medications Name Sig Start Date Stop Date Status Note LastModified by Organization Details LastModified Time ondansetr on hcl 4 mg tabs 04/12 completed Not Available Not Available Not Available humira pen-crohn s diseasest arter 40 mg/0.8ml pnkt 12/23 completed Not Available Not Available Not Available omeprazol e dr 40 mg cpdr 04/12 completed Not Available Not Available Not Available ondansetr on odt 4 mg tbdp 04/20 completed Not Available Not Available Not Available levofloxa karina 500 mg tabs 12/23 completed Not Available Not Available Not Available cefuroxim e axetil 500 mg tabs 04/20 completed Not Available Not Available Not Available epinephri ne 0.3 mg/0.3ml soaj 04/20 completed Not Available Not Available Not Available humira pen 40 mg/0.8ml pnkt 10/05 completed Not Available Not Available Not Available triamcino lone acetonide 0.1 % crea 10/05 completed Not Available Not Available Not Available budesonid e 3 mg cpep GI 04/18 completed Not Available Not Available Not Available omeprazol e 40 mg cpdr 04/20 completed Not Available Not Available Not Available compound drug 02/25 completed Not Available Not Available Not Available ciproflox acin hcl 500 mg tabs 04/12 completed not taking Not Available Not Available Not Available ventolin hfa 108 (90 base) mcg/actae rs 04/20 completed Not Available Not Available Not Available oxycodone /acetamin ophen 5-325 mg tabs active Not Available Not Available Not Available neomycin/ polymyxin /hydrocor tisone 3.5-64046 -1 susp 04/20 completed Not Available Not Available Not Available potassium chloride er 20 meq tbcr 1 tab po bid 06/04 completed 1 tab tid per GI Not Available Not Available Not Available doxycycli ne monohydra te 100 mg tabs 05/18 completed Not Available Not Available Not Available remicade 100 mg solr 04/20 completed Not Available Not Available Not Available polyethyl marques glycol 3350 powd 01/30 completed Not Available Not Available Not Available humira 40 mg/0.8ml pskt 04/26 completed Not Available Not Available Not Available colestipo l hcl 1 gm tabs GI 04/18 completed Not Available Not Available Not Available reguloid 57.6 % powd 05/01 completed Not Available Not Available Not Available clindamyc in hcl 150 mg caps active Not Available Not Available Not Available carafate 1 gm/10ml susp 11/17 completed Not Available Not Available Not Available doxycycli ne hyclate 100 mg tabs 04/26 completed Not Available Not Available Not Available gavilyte- g 236 gm solr active Not Available Not Available Not Available doxycycli ne hyclate 50 mg caps active Not Available Not Available Not Available dilantin- 125 125 mg/5ml susp 04/20 completed Not Available Not Available Not Available fluconazo le 200 mg tabs 10/05 completed Not Available Not Available Not Available metronida zole 500 mg tabs 04/12 completed not taking Not Available Not Available Not Available fluconazo le 150 mg tabs 04/20 completed Not Available Not Available Not Available prednison e 20 mg tabs 04/12 completed not taking Not Available Not Available Not Available lorazepam 1 mg tabs 04/18 completed Not Available Not Available Not Available dicyclomi ne hcl 10 mg caps GI 04/12 completed not ami Not Available Not Available Not Available azithromy karina 250 mg tabs 01/30 completed Not Available Not Available Not Available hydrocodo ne/acetam inophen 5-325 mgtabs 10/05 completed Not Available Not Available Not Available oxycodone hcl 10 mg tabs 12/23 completed Not Available Not Available Not Available ondansetr on odt 8 mg tbdp GI 04/18 completed Not Available Not Available Not Available proair hfa 108 (90 base) mcg/act aers 10/05 completed Not Available Not Available Not Available mupirocin 2 % oint 04/26 completed Not Available Not Available Not Available cyclobenz aprine 10 mg tablet 11/08 completed not taking Not Available Not Available Not Available furosemid e 40 mg tablet TAKE 2 TABLETS BY MOUTH IN THE MORNIN AND 1 TABLET BY MOUTH IN THE EVENING 2024 active Not Available Not Available Not Avai lable acetamino phen 325 mg tablet TAKE 2 TABLETS BY MOUTH EVERY 6 HOURS FOR 10 DAYS FOR SEVERE PAIN active Not Available Not Available No t Available carvedilo l 6.25 mg tablet TAKE 1 TABLET BY MOUTH TWICE DAILY active Not Available Not Available No t Available Vitamin B-12 1,000 mcg/mL injection solution Inject 1 mL every 2 week by intramus cular route. 10/05 completed Not Available Not Available Not Available doxycycli ne hyclate 100 mg capsule Take 1 capsule twice a day by oral route for 10 days. 02/25 completed Not Available Not Available Not Available atorvasta tin 20 mg tablet Take 1 tablet every day by oral route. 2024 active Not Available Not Available Not Avai lable albuterol sulfate 2.5 mg/3 mL (0.083 %) solution for nebulizat ion USE 1 VIAL 3 TIMES A DAY VIA NEBULIZA TION ROUTE NEEDED 2022 active Not Available Not Available Not Avai lable ciproflox acin 750 mg tablet GI 02/25 completed Not Available Not Available Not Available loperamid e 2 mg capsule TAKE 2 CAPSULES BY MOUTH 4 TIMES A DAY WITH MEALS AND AT NIGHT. active Not Available Not Available No t Available trazodone 50 mg tablet Take 1 tablet as needed by oral route at bedtime. 11/11 completed Not Available Not Available Not Available cefpodoxi me 200 mg tablet 06/04 completed Not Available Not Available Not Available Lidocaine Viscous 2 % mucosal solution USE 5ML BY MOUTH/TH ROAT EVERY 2 HOURS NEEDED FOR PAIN FOR UP TO 7 DAYS active Not Available Not Available No t Available hydrocodo ne 5 mg-acetam inophen 325 mg tablet TAKE 1 TABLET BY MOUTH EVERY 6 HOURS FOR UP TO 15 DAYS NEEDED FOR PAIN active Not Available Not Available No t Available prochlorp erazine maleate 5 mg tablet 1 tablet by mouth daily as needed active not taking Not Available Not Available Not Available Nicoderm CQ 21 mg/24 hr daily transderm al patch Apply 1 patch every day by transder mal route. 2014 active Not Available Not Available Not Avai lable ondansetr on HCl 4 mg tablet TAKE 1 TABLET BY MOUTH EVERY 8 HOURS NEEDED FOR NAUSEA 02/25 completed Not Available Not Available Not Available prednison e 20 mg tablet TAKE 2 TABLETS BY MOUTH DAILY FOR 9 DAYS 02/21 completed complete d Not Available Not Available Not Available lactated Ringers intraveno us solution 02/25 completed Not Available Not Available Not Available Zithromax Z-Jim 250 mg tablet TAKE 2 TABLETS (500 MG) BY ORAL ROUTE ONCE DAILY FOR 1 DAY THEN 1 TABLET (250 MG) BY ORAL ROUTE ONCE DAILY FOR 4 DAYS 01/30 completed Not Available Not Available Not Available clindamyc in HCl 150 mg capsule Take 150 mg by oral route. 04/26 completed Not Available Not Available Not Available Diflucan 150 mg tablet Take 1 tablet every day by oral route for 1 day. 05/22 completed Not Available Not Available Not Available cyanocoba jorge l (vit B-12) 1,000 mcg tablet Take 2 tablets every day by oral route. 06/20 completed Not Available Not Available Not Available diphenoxy late-atro pine 2.5 mg-0.025 mg tablet TAKE 2 TABLETS BY MOUTH THREE TIMES DAILY active Not Available Not Available No t Available potassium chloride ER 10 mEq tablet,ex tended release TAKE 2 TABLETS BY MOUTH FOUR TIMES DAILY 03/03 completed Not Available Not Available Not Available metronida zole 500 mg tablet TAKE 1 TABLET BY MOUTH THREE TIMES DAILY 03/03 completed Not Available Not Available Not Available azathiopr ine 50 mg tablet 10/14 completed not taking Not Available Not Available Not Available ciproflox acin 500 mg tablet TAKE 1 TABLET BY MOUTH TWICE DAILY FOR 10 DAYS 03/03 completed Not Available Not Available Not Available omeprazol e 40 mg capsule,d elayed release TAKE ONE CAPSULE BY MOUTH TWICE A DAY 03/03 completed Not Available Not Available Not Available doxycycli ne monohydra te 100 mg tablet TAKE 1 TABLET BY MOUTH TWICE DAILY FOR 10 DAYS 04/30 completed Not Available Not Available Not Available triamcino lone acetonide 0.1 % topical cream APPLY A THIN LAYER TO THE AFFECTED AREA(S) BY TOPICAL ROUTE 2 TIMES PER DAY 03/03 completed not using Not Available Not Available Not Available spironola ctone 25 mg tablet TAKE 2 TABLETS BY MOUTH EVERY DAY 2024 active Not Available Not Available Not Avai lable carvedilo l 3.125 mg tablet TAKE 1 TABLET BY MOUTH TWICE DAILY 11/08 completed increase d Not Available Not Available Not Available Cholestyr amine Light 4 gram powder for suspensio n in a packet MIX AND DRINK 1 PACKET BY MOUTH TWICE DAILY 11/08 completed not taking Not Available Not Available Not Available ondansetr on 8 mg disintegr ating tablet 03/03 completed Not Available Not Available Not Available phenytoin 125 mg/5 mL oral suspensio n TAKE 21 ML BY MOUTH EVERY NIGHT AT BEDTIME 04/03 completed Not Available Not Available Not Available oxycodone 15 mg tablet 03/03 completed Not Available Not Available Not Available Aldactone 50 mg tablet Take 1 tablet every day by oral route. 03/03 completed cardio Not Available Not Available Not Available potassium chloride ER 20 mEq tablet,ex tended release(p art/cryst ) TAKE 2 TABLETS BY MOUTH THREE TIMES A DAY. 02/25 completed Not Available Not Available Not Available magnesium oxide 400 mg (241.3 mg magnesium ) tablet TAKE 2 TABLETS BY MOUTH TWICE DAILY active Not Available Not Available No t Available linezolid 600 mg tablet Take 1 tablet every 12 hours by oral route. 02/25 completed Not Available Not Available Not Available dicyclomi ne 20 mg tablet Take 1 tablet 3 times a day by oral route. active Not Available Not Available No t Available ciproflox acin 0.3 % eye drops PLACE 1-2 DROPS IN AFFECTED EYE EVERY 4 HOURS WHILE AWAKE FOR 7 DAYS 02/21 completed Not Available Not Available Not Available sodium bicarbona te 650 mg tablet 02/25 completed not taking Not Available Not Available Not Available benzonata te 100 mg capsule TAKE 1 CAPSULE BY MOUTH THREE TIMES DAILY NEEDED FOR COUGH 04/30 completed Not Available Not Available Not Available doxycycli ne monohydra te 100 mg capsule 02/25 completed Not Available Not Available Not Available Advair Diskus 250 mcg-50 mcg/dose powder for inhalatio n Inhale 1 puff twice a day by inhalati on route. 06/29 completed Not Available Not Available Not Available nystatin- triamcino lone 100,000 unit/g-0. 1 % topical cream APPLY TOPICALL Y TO THE AFFECTED AREA TWICE DAILY FOR 14 DAYS 03/03 completed Not Available Not Available Not Available BD Luer-Nikkie Syringe 3 mL 25 gauge x 1 Use with Vit B12 injectio n weekly 10/05 completed Not Available Not Available Not Available nitroglyc juan ramon 0.4 mg sublingua l tablet PLACE 1 TABLET BY MOUTH NEEDED FOR CHEST PAIN. MAX 3 TABLETS IN 15 MINUTES active Not Available Not Available No t Available omeprazol e 20 mg capsule,d elayed release TAKE 1 CAPSULE BY MOUTH TWICE DAILY NEEDED FOR GERD active Not Available Not Available No t Available montel[address] st 10 mg tablet Take 1 tablet every day by oral route for 30 days. active not taking Not Available Not Available Not Available bisacodyl 5 mg tablet,de layed release 05/01 completed Not Available Not Available Not Available mupirocin 2 % topical ointment APPLY A SMALL AMOUNT TO THE AFFECTED AREA BY TOPICAL ROUTE 2 TIMES PER DAY 10/05 completed Not Available Not Available Not Available sodium chloride 0.9 % intraveno us solution 02/25 completed Not Available Not Available Not Available polyethyl marques glycol 3350 17 gram/dose oral powder 03/03 completed Not Available Not Available Not Available neomycin 500 mg tablet 03/03 completed Not Available Not Available Not Available Enteric Coated Aspirin 81 mg tablet,de layed release Take 1 tablet every day by oral route. 2024 active Not Available Not Available Not Avai lable albuterol sulfate HFA 90 mcg/actua tion aerosol inhaler INHALE 2 PUFFS BY MOUTH THREE TIMES DAILY NEEDED 2024 active Not Available Not Available Not Avai lable Vitamin D2 1,250 mcg (50,000 unit) capsule Take 1 capsule every week by oral route. 12/17 completed Taking otc D3 Not Available Not Available Not Available ondansetr on 4 mg disintegr ating tablet DISSOLVE ONE TABLET BY MOUTH EVERY 8 HOURS NEEDED FOR NAUSEA active Not Available Not Available No t Available cefdinir 300 mg capsule TAKE 1 CAPSULE BY MOUTH TWICE DAILY FOR 4 DAYS FOR PNEUMONI A 05/01 completed Not Available Not Available Not Available doxycycli ne hyclate 100 mg tablet TAKE 1 TABLET BY MOUTH TWICE DAILY FOR 9 DOSES FOR PNEUMONI A 05/01 completed Not Available Not Available Not Available Dilantin Infatabs 50 mg chewable tablet 2024 active Not Available Not Available Not Avai lable oxycodone 5 mg tablet TAKE ONE TABLET BY MOUTH EVERY 8 HOURS NEEDED FOR PAIN FOR TWO DAYS 02/25 completed Not Available Not Available Not Available enoxapari n 40 mg/0.4 mL subcutane ous syringe 11/08 completed not using Not Available Not Available Not Available Loratadin e-D 10 mg-240 mg tablet,ex tended release 24 hr Take 1 tablet every day by oral route for 10 days. 02/21 completed Not Available Not Available Not Available opium tincture 10 mg/mL (morphine ) oral TAKE 0.6 ML BY MOUTH EVERY SIX HOURS NEEDED FOR DIARRHEA . 11/08 completed not taking Not Available Not Available Not Available Flagyl GI 06/04 completed prescrib ed when pt was in the hosptial Not Available Not Available Not Available Percodan 4.8355 mg-325 mg tablet 04/26 completed Not Available Not Available Not Available Humira Pen 40 mg/0.8 mL subcutane ous kit Inject 40 mg by sub-q route. 10/05 completed Not Available Not Available Not Available Symbicort 160 mcg-4.5 mcg/actua tion HFA aerosol inhaler Inhale 2 puffs twice a day by inhalati on route for 30 days. 03/20 completed Not Available Not Available Not Available cholecalc iferol (vitamin D3) 1,250 mcg (50,000 unit) capsule TAKE 1 CAPSULE BY MOUTH ONCE A WEEK active Not Available Not Available No t Available oxycodone 10 mg tablet 02/25 completed Not Available Not Available Not Available Stelara 90 mg/mL subcutane ous syringe INJECT 1 SYRINGE UNDER THE SKIN EVERY 8 WEEKS 05/01 completed not taking Not Available Not Available Not Available potassium chloride ER 20 mEq tablet,ex tended release TAKE 3 TABLETS BY MOUTH THREE TIMES DAILY active Not Available Not Available No t Available Entyvio 300 mg intraveno us solution Inject 300 mg by intraven ous route. 11/11 completed every 8 weeks for crohns, pt taking Stalara Not Available Not Available Not Available Entyvio per GI 09/18 completed not taking Not Available Not Available Not Available Incruse Ellipta 62.5 mcg/actua tion powder for inhalatio n Inhale 1 puff every day by inhalati on route. 2024 active Not Available Not Available Not Avai lable Flonase Allergy Relief 50 mcg/actua tion nasal spray,yanci pension [place] 1 spray every day by intranas al route. 06/20 completed Not Available Not Available Not Available naloxone 4 mg/actuat ion nasal spray CALL 911. SPR CONTENTS OF ONE SPRAYER (0.1ML) INTO ONE NOSTRIL. REPEAT IN 2-3 MIN IF SYMPTOMS OF OPIOID EMERGENC Y PERSIST, ALTERNAT E NOSTRILS active Not Available Not Available No t Available magnesium 400 mg (as magnesium oxide) tablet Take 2 tablets twice a day by oral route. 2024 active Not Available Not Available Not Avai lable Breztri Aerospher e 160 mcg-9mcg- 4.8mcg/ac tuation HFA aerosol inhaler Inhale 2 puffs twice a day by inhalati on route for 30 days. 05/01 completed not using Not Available Not Available Not Available BinaxNOW COVID-19 Ag Self Test kit Use as Directed on the Package 10/14 completed Not Available Not Available Not Available Paxlovid 300 mg (150 mg x 2)-100 mg tablets in a dose pack TK 2 NIRMATRE LVIR TS AND 1 RITONAVI R T TOGETHER PO TWICE DAILY X 5 DAYS 04/09 completed Not Available Not Available Not Available Skyrizi 360 mg/2.4 mL (150 mg/mL) subcutane ous wearable injector 1 injectio n every 2 months active Not Available Not Available No t Available Vitals Date Recorded Body height Body mass index (BMI) Body weight Respiratory rate Heart rate Oxygen saturation Oxygen saturation in Arterial blood by Pulse oximetry Systolic blood pressure Diastolic blood pressure Provider Name and Address Organization Details Last Updated DateTime 5 165.1 cm 38.9 kg/m2 974515. 61 g 18 /min 105 /min 96 % 96 % 114 mm[Hg] 64 mm[Hg] Madison Guzmán LPN [facility] 5 09:58:56 Date Recorded Body height Body mass index (BMI) Body weight Heart rate Oxygen saturation Oxygen saturation in Arterial blood by Pulse oximetry Systolic blood pressure Diastolic blood pressure Provider Name and Address Organization Details Last Updated DateTime 5 165.1 cm 38.4 kg/m2 336096. 84 g 96 /min 96 % 96 % 96 mm[Hg] 64 mm[Hg] Elaine Iyer RN [facility] 5 09:43:59 Date Recorded Body height Body mass index (BMI) Body weight Heart rate Oxygen saturation Oxygen saturation in Arterial blood by Pulse oximetry Systolic blood pressure Diastolic blood pressure Provider Name and Address Organization Details Last Updated DateTime 5 165.1 cm 38.3 kg/m2 018835. 25 g 92 /min 95 % 95 % 110 mm[Hg] 60 mm[Hg] Elaine Iyer RN [facility] 5 09:45:27 Date Recorded Body height Body mass index (BMI) Body weight Oxygen saturation Oxygen saturation in Arterial blood by Pulse oximetry Heart rate Respiratory rate Body temperature Systolic blood pressure Diastolic blood pressure Provider Name and Address Organization Details Last Updated DateTime 5 165.1 cm 39.7 kg/m2 691149. 86 g 97 % 97 % 100 /min 16 /min 97.3 [degF] 113 mm[Hg] 76 mm[Hg] Richa Tovar MA [facility] 5 15:02:58 Date Recorded Body height Body mass index (BMI) Body weight Heart rate Oxygen saturation Oxygen saturation in Arterial blood by Pulse oximetry Systolic blood pressure Diastolic blood pressure Provider Name and Address Organization Details Last Updated DateTime 5 165.1 cm 39.9 kg/m2 751037. 45 g 105 /min 97 % 97 % 118 mm[Hg] 76 mm[Hg] May Vince Perera [facility] 5 09:50:18 Social History Question Answer Notes LastModified by Organizat ion Details LastModified Time Tobacco Smoking Status Former Smoker Quit 07/2021 Richa Tovar [facility], [facility] 10/14/2021 09:06:05 Do You Have An Advance Directive? No Information not available 04/03/2020 What Is Your Level Of Alcohol Consumption? None [id number] Information not available 12/17/2019 Are You Blind Or Do You Have Difficulty Seeing? No Glasses Information not available 10/14/2021 What Is Your Level Of Caffeine Consumption? Moderate Coffee Information not available 05/02/2023 How Much Tobacco Do You Chew? None [id number] Information not available 12/17/2019 In The 14 Days Before Symptom Onset, Have You Had Close Contact With A Laboratory-confi rmed COVID-19 While That Case Was Ill? No [email or web address] Information not available 11/11/2022 In The 14 Days Before Symptom Onset, Have You Had Close Contact With A Person Who Is Under Investigation For COVID-19 While That Person Was Ill? No [email or web address] Information not available 11/11/2022 Have You Been To An Area Known To Be High Risk For COVID-19? No [email or web address] Information not available 11/11/2022 Are You Currently Employed? No [email or web address] Information not available 11/11/2022 Are You Deaf Or Do You Have Serious Difficulty Hearing? No Information not available 04/03/2020 What Type Of Diet Are You Following? REGULAR Ileostomy, No Pork Information not available 05/23/2023 Which Illicit Or Recreational Drugs Have You Used? Denied [id number] Information not available 12/17/2019 Do You Or Have You Ever Used E-cigarettes Or Vape? Never Used Electronic Cigarettes [id number] Information not available 12/17/2019 Education 12 Some College Information not available 11/17/2016 What Is The Highest Grade Or Level Of School You Have Completed Or The Highest Degree You Have Received? [id number] [email or web address] Information not available 05/15/2020 Are There Any Guns Present In Your Home? Yes [id number] Information not available 12/17/2019 Marital Status Single Informatio n not available 12/24/2015 What Was The Date Of Your Most Recent Tobacco Screening? 05/21/2024 [email or web address] Information not available 05/21/2024 Performs Monthly Self-breast Exam? Yes [email or web address] Information not available 04/12/2019 What Is Your Relationship Status? Single Information not available 04/03/2020 Do You Use Your Seat Belt Or Car Seat Routinely? Yes Information not available 04/03/2020 Seat Belts Used Routinely Yes [email or web address] Information not available 04/12/2019 Smoke Alarm In Home Yes Information not available 04/12/2019 Do You Have Smoke And Carbon Monoxide Detectors In Your Home? Yes Information not available 04/03/2020 At What Age Did You Start Smoking Tobacco? 15 Information not available 04/03/2020 Do You Or Have You Ever Used Smokeless Tobacco? Never Used Smokeless Tobacco [id number] Information not available 12/17/2019 How Much Tobacco Do You Smoke? 0.5 PPD Information not available 06/04/2021 General Stress Level Medium [email or web address] Information not available 04/12/2019 Do You Feel Stressed (tense, Restless, Nervous, Or Anxious, Or Unable To Sleep At Night)? [id number] Stressed Information not available 03/20/2024 Do You Use Any Illicit Or Recreational Drugs? No Information not available 04/03/2020 Do You Use Sunscreen Routinely? No [id number] Information not available 12/17/2019 Has Tobacco Cessation Counseling Been Provided? No Information not available 02/21/2022 On What Date Was Tobacco Cessation Counseling Provided? 04/29/2024 Information not available 04/30/2024 How Many Years Have You Smoked Tobacco? 36 Information not available 06/04/2021 Do You Or Have You Ever Used Any Other Forms Of Tobacco Or Nicotine? No Information not available 04/03/2020 Sex: Female Functional Status Question Answer Note LastModified by Organizat ion Details LastModified Time Are you able to care for yourself? No with assistance Information not available 11/09/2023 What is your exercise level? Occasional Information not available 02/26/2024 Mental Status None recorded. Family History Relationship Description Onset Age of this Age Resolved Age Notes LastModified by Organization Details LastModified Time Mother Heart disease [email or web address] Not available 2015 11:47:27 Mother History of malignant neoplasm of breast [email or web address] Not available 2015 11:47:27 Father Family history of malignant neoplasm [email or web address] Not available 2015 11:47:27 Medical History Condition Response Coronary Artery Disease N Other Y Atrial Fibrillation N High Blood Pressure Y Depression N COPD Y Blood Clots N Anxiety Disorder N Muscle, Joint, or Bone Problems N Acid Reflux (GERD) Y Cancer N Stroke N Headaches Y Kidney or Bladder Problems N Skin Problems N Asthma Y Allergies Y Hepatitis N High Cholesterol N Liver Disease N Thyroid Problems N GI Problems Y Anemia N Heart Attack ([place]) N Diabetes N Seizures/Epilepsy Y Heart Failure N Osteoporosis N Gynecological History Statement/Question Response Menses Monthly N Current Control Method Hysterectom y Date of LMP LMP Approximate Obstetrics History GPAL:G 2 P 2 0 0 2 Type Value Full Term 2 Living 2 Total 2 Immunizations Vaccine Type Date Status Note Provider Nam lisa and Address Organization Details Recorded Time Tdap 6 completed Not Available [facility] 03/02/2019 02:29:59 Influenza, split virus, quadrivalent, preservative 0 completed Not Available [facility] 04/03/2023 07:11:30 Tdap 2 completed Not Available [facility] 04/03/2023 07:11:31 Influenza, split virus, quadrivalent, preservative 6 completed Not Available [facility] 03/02/2019 02:46:39 Influenza, split virus, quadrivalent, preservative 7 completed Not Available [facility] 03/02/2019 02:34:22 Influenza, split virus, quadrivalent, PF 0 completed Pennie Mclain null, [place] - [facility] 04/12/2019 15:41:52 COVID-19, mRNA, LNP-S, PF, 100 mcg/0.5mL dose or 50 mcg/0.25mL dose 1 completed Bishop Guan [place], [place] [facility] 05/04/2020 15:40:56 COVID-19, mRNA, LNP-S, PF, 100 mcg/0.5mL dose or 50 mcg/0.25mL dose 1 completed Bishop Guan [place], [place] [facility] 06/01/2020 16:33:27 Influenza, split virus, quadrivalent, preservative 1 completed Richa Tovar [place], [place] [facility] 12/17/2020 11:53:15 COVID-19, mRNA, LNP-S, PF, 100 mcg/0.5mL dose or 50 mcg/0.25mL dose 1 completed Sonia Peguero [place], [place] [facility] 12/18/2020 14:44:38 Influenza, split virus, quadrivalent, PF 3 completed Pennie Mclain [place] [facility] 11/11/2022 09:30:16 Influenza, split virus, trivalent, preservative 4 completed Richa Tovar [place], [place] [facility] 11/09/2023 14:00:47 Influenza, split virus, quadrivalent, preservative 6 completed Not Available [facility] 03/02/2019 02:32:11 pneumococcal polysaccharide PPV23 6 completed Not Available [facility] 03/02/2019 02:29:46 Influenza, split virus, trivalent, preservative 4 completed Not Available [facility] 11/15/2022 14:22:53 Influenza, split virus, trivalent, preservative 5 completed Not Available [facility] 11/15/2022 14:22:53 Past Encounters Encounter ID Performer Location Encounter Start Date Encounter Closed Date Diagnosis/Indication Diagnosis SNOMED-CT Code Diagnosis ICD10 Code Diagnosis Note [id number] [facility] [address] [place] [address] 05/29/2014 12:35:25 05/29/2014 16:43:20 Crohn's disease of colon [id number] Teodora Davey (Adult Med) [address] [place] [address] 06/03/2014 09:48:08 06/03/2014 13:45:11 Seizure disorder [id number] continue same Esophagitis 90972789 con tinue same Crohn's di sease of colon 21510443 As per GI on Humira Rheumatoid arthritis 28093107 managed by GI pt is going for colonoscop y in 06/27 Chronic mastitis 67282738 s/p multiple I & D- seeing Dr.Kleifot phelps---biopsy showed breast ca as per pt. [id number] Kena Davey (Adult Med) [address] [place] [address] 08/13/2014 10:47:19 08/13/2014 13:39:03 Seizure disorder 945805776 continue same Esophagitis 65411149 con tinue same Hyperlipid emia screening 752075768 Smoker [id number] Chronic mastitis 10810542 s/p multiple I & D- seeing Dr.Kleifot phelps biopsy did not show breast ca as per pt ( previously pt was told that it showed ca ?) [id number] MD Tamica Jimenez (Adult Med) [address] [place] [address] 02/16/2015 10:58:40 02/17/2015 09:07:26 Seizure disorder 439966022 G40.409 continue same Rheumatoid arthritis 698 52118 M06.9 managed by GI pt had colonoscop y in 06/27 Crohn's di sease of colon 74179009 K50.10 As per GI -off of Humira Administra tion of influenza vaccine 55216548 Z23 Administra tion of pneumococcal vaccine 34926045 Z23 Fatigue 22497675 R53.83 check labs [id number] MD Monika Jimenezhalto (Adult Med) [address] [place] [address] 05/18/2015 10:01:16 05/18/2015 15:57:21 Seizure disorder 255291892 G40.409 continue same Vitamin B1 2 deficiency (non anemic) 71793256 E53.8 continue vit B12 once a month Vitamin D deficiency 347 31131 E55.9 continue vit D Administra tion of diphtheria, pertussis, and tetanus vaccine 522140933 Z23 Obesity 601003169 E66.3 diet and exercise discussed with pt [id number] [facility] [address] [place] [address] 12/24/2015 09:53:47 12/29/2015 14:04:03 Crohn's disease of colon 19139164 K50.10 As per GI -pt is back on Humirapt had leukocytos is -pt to follow up with GI Vitamin B1 2 deficiency (non anemic) 28031097 E53.8 continue vit B12 once a month Vitamin D deficiency 347 82956 E55.9 continue vit D Hypokalemia 57255028 E87 .6 due to diarrhea /crohns disease Cough 87421732 R05 with history of pneumoniac heck cxr Administra tion of influenza vaccine 84702623 Z23 [id number] MD [facility] ([facility] [address] [place] [address] 01/21/2016 10:42:33 01/21/2016 13:00:52 Seizure disorder 684957850 G40.409 stablecont inue Dilantin Crohn's di sease of colon 69902433 K50.10 As per GI -pt is back on Humirapt had leukocytos is -pt to follow up with GI Upper resp iratory infection 43730543 J06.9 increase fluidpt has problem with pcn in the past as per pt Nasal infection 22973066 3 J32.9 [id number] [facility] ([facility] [address] [place] [address] 05/18/2016 09:10:25 05/18/2016 14:39:29 Seizure disorder 119831517 G40.409 stablecont inue Dilantin Crohn's di sease of colon 44628073 K50.10 with fistula -pt is seeing surgeon As per GI -pt was on Humira, but on hold for now pt to take multivitam in /vit B12 1000 mcg /vit D3 [id number] [facility] [address] [place] [address] 11/17/2016 14:35:42 11/17/2016 17:45:12 Administration of influenza vaccine 61509957 Z23 Seizure disorder 2691986 02 G40.409 stablecont inue Dilantin Crohn's di sease of colon 85029393 K50.10 pt is seeing GI and off of Humira Vitamin B1 2 deficiency (non anemic) 69211109 E53.8 continue vit B12 oral daily Vitamin D deficiency 347 62838 E55.9 continue vit D Obesity 040201861 E66.9 Upper resp iratory infection 36763545 J06.9 increase fluidpt has problem with pcn in the past as per pt [id number] MD Monika Jimenezhalto (Adult Med) [address] [place] [address] 01/30/2017 09:38:33 01/31/2017 09:46:39 Crohn's disease of colon 17254438 K50.10 pt is seeing GI and started back on HumiraPt is going for ERCP for bile duct stricture due to PSC Hypokalemia 19932182 E87 .6 due to diarrhea /crohns diseasept is on 2 tab tid of K pillInform ed pt to f/u with GI for K monitoring Seizure disorder 9423345 02 G40.409 stablecont inue Dilantin [id number] MD [facility] [address] [place] [address] 04/18/2017 10:36:31 04/19/2017 14:28:41 Nasal infection 321575587 J32.9 pt is allergic to several antibiotic and also pt has immunosupp ressed stateRx with doxy Pruritic rash 02020618 L 28.2 on R/axilla -possibly irritant dermatitis pt to avoid shaving Vitamin D deficiency 347 84387 E55.9 Vitamin B1 2 deficiency (non anemic) 28651657 E53.8 continue vit B12 [id number] MD [facility] ([facility] [address] [place] [address] 04/26/2017 11:07:02 04/27/2017 13:32:49 Cough 89458772 R05 possibly due to smokingpt is on doxy as wellcheck cxr Nasal infection 46449166 3 J32.9 improvingp t is allergic to several antibiotic and also pt has immunosupp ressed statept to complete doxy rx Nausea and vomiting 1693 2000 R11.2 with crohnspt to f/u with GI [id number] MD [facility] ([facility] [address] [place] [address] 10/05/2017 14:24:56 10/06/2017 17:21:22 Cough 70171288 R05 possibly due to smoking Seizure disorder 0300763 02 G40.409 stablecont inue Dilantin Vitamin B1 2 deficiency (non anemic) 30165712 E53.8 continue vit B12 daily Crohn's di sease of colon 80563605 K50.10 pt is seeing GI and pt is off of HumiraPt is trying to get on new med per pt Smoker 99743310 F17.200 Obesity 829013721 E66.9 Vitamin D deficiency 347 36306 E55.9 [id number] MD [facility] ([facility] [address] [place] [address] 04/20/2018 10:28:22 04/23/2018 09:11:56 Seizure disorder 924284576 G40.409 stablecont inue Dilantinpt has labs with GI Smoker 57638512 F17.200 Multiple n odules of lung 715915279 R91.8 pt stopped seeing pulmo Upper resp iratory infection 42849778 J06.9 increase fluidpt has problem with several antibiotic s including pcn in the past as per ptgo to ER if problem worsen [id number] MD [facility] [address] [place] [address] 04/12/2019 08:09:07 04/12/2019 13:57:01 Seizure disorder 693917137 G40.409 stablecont inue Dilantinpt has labs with GI Crohn's di sease of colon 42747795 K50.10 pt is seeing GI and pt is off of HumiraPt is on new med per pt -entyvio Multiple n odules of lung 892611298 R91.8 pt stopped seeing pulmo Smoker 63534071 F17.200 Vitamin B1 2 deficiency (non anemic) 70267598 E53.8 continue vit B12 daily Vitamin D deficiency 347 93465 E55.9 Hyperlipidemia 64879218 E78.5 healthy diet and exercise discussed with pt Screening mammography 24 201807 Z12.31 Administra tion of influenza vaccine 59539083 Z23 [id number] MD [facility] ([facility] [address] [place] [address] 09/19/2019 08:07:30 09/23/2019 16:34:18 Cellulitis 343792682 L03.90 of vaginal area.s/p I/D and pt said it has almost healed up .completed antibiotic . Renewal of prescription 410340773 Z76.0 [id number] MD [facility] ([facility] [address] [place] [address] 04/03/2020 08:10:13 04/07/2020 15:43:07 Crohn's disease of colon 67651040 K50.10 pt is seeing GI and pt is off of HumiraPt is on new med per pt -entyvio Anal fistula 349730299 K 60.3 s/p sx with multiple sx in the past Seizure disorder 3200246 02 G40.409 stablecont inue Dilantinpt has labs with GI [id number] JOSE Jones 14 IM [address] [facility] [place] [address] 05/04/2020 14:14:53 05/05/2020 09:30:00 Administration of SARS-CoV-2 antigen vaccine 305341005 Z23 [id number] Maggie Madrigal MD [facility] (Adult Med) [address] [place] [address] 05/15/2020 10:00:42 05/18/2020 09:05:19 Cellulitis of lower limb 448806739 L03.119 of L/thigh -improving . pt is on Zyvox pt declined to see wound care Seizure disorder 9356117 02 G40.409 stablecont inue Dilantinpt has labs with GI [id number] Inna Slade LPN [place] 14 IM [address] [facility] [place] [address] 06/01/2020 15:03:59 06/02/2020 13:12:41 Administration of SARS-CoV-2 antigen vaccine 795665081 Z23 [id number] Maggie Madrigal MD [facility] (Adult Med) [address] [place] [address] 08/04/2020 08:05:20 08/05/2020 12:31:50 Seizure disorder 394304340 G40.409 stablecont inue Dilantinpt has labs with GI Crohn's di sease of colon 85682953 K50.10 pt is seeing GI and pt is off of HumiraPt is on new med per pt -entyvio Rheumatoid arthritis 698 14454 M06.9 managed by GI pt had colonoscop y in 06/27 Smoker 58663844 F17.285 [id number] Maggie Madrigal MD [facility] (Adult Med) [address] [place] [address] 12/17/2020 08:21:14 12/18/2020 11:12:33 Administration of influenza vaccine 39486098 Z23 Seizure disorder 1563806 02 G40.409 stablecont inue Dilantinpt has labs with GI Crohn's di sease of colon 86618228 K50.10 pt is seeing GI and pt is off of HumiraPt is on new med per pt -entyvio Rheumatoid arthritis 698 59623 M06.9 managed by GI pt had colonoscop y in 06/27 Smoker 38414695 F17.780 [id number] [facility] ([facility]) [address] [place] [address] 12/18/2020 14:03:48 12/21/2020 11:49:04 Administration of SARS-CoV-2 mRNA vaccine 7758886938 Z23 [id number] MD [facility] ([facility] [address] [place] [place] [address] 06/04/2021 13:17:24 06/07/2021 10:09:35 Crohn's disease of colon 25112663 K50.10 pt is seeing GI and pt is off of HumiraPt is on new med per pt -entyvio Perirectal abscess 49359 008 K61.1 with fistula /gluteal infection and sacral bone infection- pt sees GI and surgeonpt also seen by ID at the hospitalpt is on cipro/falg yl Vitamin B1 2 deficiency (non anemic) 14351360 E53.8 continue vit B12 daily Vitamin D deficiency 347 25881 E55.9 -continue vit D otc [id number] MD [facility] ([facility] [address] [place] [address] 10/14/2021 08:32:21 10/15/2021 07:42:20 Seizure disorder 594655703 G40.409 stablecont inue Dilantinpt has labs with GI Crohn's di sease of colon 70243793 K50.10 pt is seeing GI and pt is off of HumiraPt is on new med per pt -entyvio Screening mammography 24 986466 Z12.31 Overweight 453555464 E66 .3 Upper resp iratory infection 91395704 J06.9 increase fluidpt has problem with several antibiotic s including pcn in the past as per ptgo to ER if problem worsen [id number] MD [facility] ([facility] [address] [place] [address] 02/21/2022 08:18:54 02/22/2022 10:53:12 Seizure disorder 349903635 G40.409 stablecont inue Dilantinpt has labs with GI Crohn's di sease of colon 48282391 K50.10 pt is seeing GI and pt is off of HumiraPt is on new med per pt -entyvio Screening mammography 24 204984 Z12.31 Rheumatoid arthritis 698 17418 M06.9 managed by GI pt had colonoscop y in 06/27 Vitamin B1 2 deficiency (non anemic) 00155773 E53.8 continue vit B12 daily Hyperlipid emia screening 925927014 Z13.220 Elevated blood-pressure reading without diagnosis of hypertension 634623572 R03.0 -monitor bp Dyspnea 830746789 R06.00 with weight gain Dog bite of hand 6450519 06 S61.451D of L/hand-pt seen by ER Allergic c ontact dermatitis 406948253 L23.9 due to topical antibiotic - pt to use topical steroid cream-f/u in 2 wks Insomnia 927069148 G47.0 0 - pt to see sleep medicine Renewal of prescription 038843635 Z76.0 [id number] MD Tamica Jimenez (Adult Med) [address] [place] [address] 03/10/2022 14:35:09 03/14/2022 09:58:04 Seizure disorder 918286746 G40.409 stablecont inue Dilantinpt has labs with GI Crohn's di sease of colon 40491690 K50.10 pt is seeing GI and pt is off of HumiraPt is on new med per pt -entyvio Dog bite of hand 1795349 06 S61.451D of L/hand-pt seen by ER - pt wants to see hand surgeon Dyspnea 134160529 R06.00 with weight gain and h/o RA-pt is on furosemide 20mg bid with K lorcon per GIEcho showed diastolic dysfunctio n with myxomatous valve - will refer to cardio ( ? infiltrati ve cardiomyop athy ) Rheumatoid arthritis 698 69952 M06.9 managed by GI pt had colonoscop y in 06/27 [id number] THERESA CARBAJAL (Adult Med) [address] [place] [address] 03/18/2022 14:58:26 03/21/2022 10:19:19 Insomnia 605136375 G47.00 split night sleep studysleep hygiene discussed Obesity 298062608 E66.9 Multiple n odules of lung 639261887 R91.[address] w/o contrast 05/08/18few small bilateral nodules , 3mm Rheumatoid arthritis 698 90946 M06.9 Seizure disorder 5735640 02 G40.409 last seizure 10 years ago, taking dilantin Crohn's di sease of colon 29224006 K50.10 Ex-smoker 5305286 Z87.89 1 stopped smoking tobacco 07/2021 stopped smoking mo ked 1.5 ppd for 25 years, 37.5 Dysphagia 99162555 R13.1 0 will f/u with GI Dyspnea on exertion 6084 5006 R06.09 PFT, walk study Asthma 542466626 J45.90 9 MDI teachingal buterol as needed, nebsnebuli zer [id number] MD Tamica Jimenez (Adult Med) [address] [place] [address] 06/20/2022 08:07:22 06/21/2022 12:10:56 Congestive heart failure 60513739 I50.9 -seen by cardio who started pt on coreg and aldactone Seizure disorder 2579213 02 G40.409 stablecont inue Dilantinpt has labs with GI Dog bite of hand 6851327 06 S61.451D of L/hand /arm-pt seen by ER - pt wants to see hand surgeon -- no hand surgeons can get her in/poss celluitus now Obesity 929422192 E66.9 Crohn's di sease of colon 07104275 K50.10 pt is seeing GI and pt is off of HumiraPt is on new med per pt -entyvio Asthma 512830862 J45.90 9 [id number] THERESA CARBAJAL (Adult Med) [address] [place] [address] 06/29/2022 14:17:47 06/30/2022 09:23:51 Insomnia 805129795 G47.00 likely due to severe OSAsleep hygiene discussed Asthma 076403238 J45.90 9 MDI teachingal buterol as needed, shaw Juan Benavidez t Dyspnea on exertion 6084 5006 R06.09 Will reorder PFT Obesity 738094311 E66.9 Multiple n odules of lung 403381604 R91.[address] w/o contrast 05/08/18few small bilateral nodules , 3mm Ex-smoker 0182574 Z87.89 1 stopped smoking 2smo ked 1.5 ppd for 25 years, 37.5 PYH Rheumatoid arthritis 698 49499 M06.9 Seizure disorder 3073712 02 G40.409 last seizure 10 years ago, taking dilantin Crohn's di sease of colon 86635939 K50.10 Obstructiv e sleep apnea syndrome 01353708 G47.33 split night sleep study 05/04/22; ahi 45.1/hr, lowest O2 83%, titrated pressure of 10.o cm H2OMs. Santana declined cpap therapy initially. She is willing to trial cpap ..Will reorder Cpap through [facility]. Encouraged to use cpap every night. Instructed pt to contact DME for any issues with mask fit, comfort, or machine related issue. F/U in 9 weeks to assess compliance and efficacy. Chronic ob structive pulmonary disease 72050274 J44.9 Continue albuterol as neededNebs Start Breztri Environmental allergy 42 1523237 T78.49XA Check allergen and IgE [id number] THERESA CARBAJAL (Adult Med) [address] [place] [address] 08/18/2022 13:49:03 08/23/2022 14:22:40 Environmental allergy 640348759 T78.49XA elevated IgE and multiple severe allergens notedrefer ed to supervisor case loading Obstructiv e sleep apnea syndrome 00118043 G47.33 split night sleep study 05/04/22; ahi 45.1/hr, lowest O2 83%, titrated pressure of 10.o cm H2OMs. Santana declined cpap therapy initially. She is willing to trial cpap ..Ordered Cpap through [facility], reports she had an appointmen t but miss it. Will reschedule Insomnia 910865480 G47.0 0 likely due to severe OSAsleep hygiene discussed Chronic ob structive pulmonary disease 13064217 J44.9 StablePFT reordered, not completedC ontinue albuterol as neededNealexandria Bertrand working well for her Asthma 671300944 J45.90 9 MDI teachingal buterol as needed, nebsnebuli zerContinu e Montelukas t Dyspnea on exertion 6084 5006 R06.09 Will reorder PFT Obesity 864951445 E66.9 Multiple n odules of lung 260722885 R91.[address] w/o contrast 05/30/22 ; smal nodules unchanged. no suspicious nodules. mild mosaicism with mild centrilobu lar nodules repeat 12 months 05/2023 Ex-smoker 9729302 Z87.89 1 stopped smoking mo ked 1.5 ppd for 25 years, 37.5 PYH Rheumatoid arthritis 698 02691 M06.9 Seizure disorder 1653448 02 G40.409 last seizure 10 years ago, taking dilantin Crohn's di sease of colon 10312444 K50.10 [id number] MD Tamica Jimenez (Adult Med) [address] [place] [address] 11/11/2022 08:34:49 11/13/2022 12:02:06 Seizure disorder 496096467 G40.409 stablecont inue Dilantinpt has labs with GI Congestive heart failure 47286415 I50.9 -seen by cardio who started pt on coreg and aldactone- pt needs to find new one Crohn's di sease of colon 23322003 K50.10 with recurrent fistula and intolerant to several meds -not well controlled - pt needs to have colostomy per ptpt is seeing GI and pt is off of HumiraPt did not tolerate new med per pt -entyvio Screening mammography 24 531505 Z12.31 Administra tion of influenza vaccine 34666262 Z23 Renewal of prescription 525425269 Z76.0 [id number] MD Tamica Jimenez (Adult Med) [address] [place] [address] 03/03/2023 13:03:01 03/06/2023 13:11:07 Crohn's disease of colon 15015615 K50.10 with recurrent anal fistula and intolerant to several meds -s/p R/hemicole ctomy in 1987 with re-do ileocolic resection 01/05 - s/p ileostomy bag in placept is seeing GI and pt is off of HumiraPt did not tolerate new med per pt -entyvio Hypokalemia 06533477 E87 .6 with ARF due to high output ileostomy- pt is on K pills qidpt had labs yesterday Seizure disorder 1510179 02 G40.409 stablecont inue Dilantinpt has labs with GI Elevated blood-pressure reading without diagnosis of hypertension 791967665 R03.0 -monitor bp Vitamin B1 2 deficiency (non anemic) 93428219 E53.8 continue vit B12 daily [id number] MD Tamica Jimenez (Adult Med) [address] [place] [address] 05/02/2023 09:12:46 05/04/2023 16:29:24 Seizure disorder 925117000 G40.409 stablecont inue Dilantinpt has labs with GI Crohn's di sease of colon 70491740 K50.10 with recurrent anal fistula and intolerant to several meds -s/p R/hemicole ctomy in 1987 with re-do ileocolic resection 01/05 - s/p ileostomy bag in place which is leaking - pt to contact specialist to fix the issue with colostomy bagpt is seeing GI and pt is off of HumiraPt did not tolerate new med per pt -entyvio Congestive heart failure 03531884 I50.9 -seen by cardio who started pt on coregpt stopped taking aldactone Hypokalemia 69237501 E87 .6 with ARF due to high output ileostomy- pt is on K pills qid Vaginal discharge 382291 006 N89.8 Renewal of prescription 958731831 Z76.0 [id number] MD Tamica Jimenez (Adult Med) [address] [place] [address] 05/23/2023 09:36:37 06/02/2023 13:11:05 Crohn's disease of colon 23365692 K50.10 with recurrent anal fistula and intolerant to several meds -s/p R/hemicole ctomy in 1987 with re-do ileocolic resection 01/05 - s/p ileostomy bag in place which is leaking - pt to contact specialist to fix the issue with colostomy bagpt is seeing GI and pt is off of Humira- pt is on skyriziPt did not tolerate new med per pt -entyvio Colostomy present 344077 009 Z93.3 with skin irritation - sees nurse for ostomy care [id number] MD Tamica Jimenez (Adult Med) [address] [place] [address] 07/27/2023 09:39:27 07/27/2023 21:00:15 Crohn's disease of colon 38366247 K50.10 with recurrent anal fistula and intolerant to several meds -s/p R/hemicole ctomy in 1987 with re-do ileocolic resection 01/05 - s/p ileostomy bag in place which is leaking - pt to contact specialist to fix the issue with colostomy bagpt is seeing GI and pt is off of Humira- pt is on skyriziPt did not tolerate new med per pt -entyvio Hypokalemia 24902796 E87 .6 with ARF due to high output ileostomy- pt is on K pills qid Renal insufficiency 7231 60948 N28.9 due to dehydratio n/ meds especially with high output colostomy- refer to nephropt had labs last wk Ileostomy present 641423 002 Z93.2 with skin irritation - sees nurse for ostomy care [id number] MD Monika Jimenezhalto (Adult Med) [address] [place] [address] 11/09/2023 08:21:00 11/14/2023 10:17:30 Crohn's disease of colon 71449541 K50.10 with recurrent anal fistula and intolerant to several meds -s/p R/hemicole ctomy in 1987 with re-do ileocolic resection 01/05 - s/p ileostomy bag in place which is leaking - pt to contact specialist to fix the issue with colostomy bagpt is seeing GI and pt is off of Humira- pt is on skyriziPt did not tolerate new med per pt -entyvio Seizure disorder 1807519 02 G40.409 stablecont inue Dilantinpt has labs with GI Hypokalemia 00286172 E87 .6 with ARF due to high output ileostomy- pt is on K pills qid Postoperat ana wound infection 92863541 T81.40XD - pt has central linept to see ID Administra tion of influenza vaccine 68844650 Z23 [id number] MD [facility] (Adult Med) [address] [place] [address] 02/26/2024 08:18:34 03/01/2024 11:05:55 Seizure disorder 453389122 G40.409 stablecont inue Dilantinpt has labs with GI Crohn's di sease of colon 58337061 K50.10 with recurrent anal fistula and intolerant to several meds -s/p R/hemicole ctomy in 1987 with re-do ileocolic resection 01/05 - s/p ileostomy bag in place which is leaking - pt to contact specialist to fix the issue with colostomy bagpt is seeing GI and pt is off of Humira- pt is on skyriziPt did not tolerate new med per pt -entyvio Incisional hernia 377998 000 K43.2 on abdomen- pt sees surgeon Congestive heart failure 03521037 I50.9 -seen by cardio who started pt on coregpt to restart aldactonep t wants to see new cardio Chronic ob structive pulmonary disease 43026030 J44.9 - pt is using albuterol more often-star t pt on incruse [id number] Gil Mcmanus MD [facility] [place] [facility] [address] [place] [address] 03/05/2024 09:43:44 03/08/2024 14:03:40 Congestive heart failure 19390718 I50.9 Patient appears volume overloaded . She is currently not taking furosemide . For heart failure with preserved ejection fraction, we discussed heart failure precaution s and education was provided and discussed with her. We will resume furosemide 40 mg daily. She has previously had issues with hypokalemi a secondary to her GI potassium losses and was encouraged to continue potassium chloride which was started by her PCP. We will renew potassium chloride 20 mEq 4 times a day and obtain a follow-up CMP, HGB A1c, proBNP and lipid panel. We will also obtain a chest x-ray. She is not having any chest pain with low risk findings on recent stress test and we will continue medical management after shared decision-m aking. We discussed warning signs to seek ER precaution s in the interim. Obstructiv e sleep apnea syndrome 23657421 G47.33 Patient has severe MATT which is playing a significan t factor in her heart failure with preserved ejection fraction. After shared decision-m aking we will refer her to sleep Medicine for further evaluation and management of the same. Essential hypertension 76706601 I10 Low-sodium diet and ambulatory blood pressure monitoring reinforced . She has been initiated on spironolac tone and carvedilol which she is tolerating . We will initiate furosemide . Postural precaution s reviewed. Morbid obesity 196781087 E66.01 Diet/exerc ise reinforced for weight management for cardiovasc ular and long-term health benefits. [id number] LUIZA GEE, [employer] [place] (Adult Med) [address] [place] [address] 03/20/2024 14:23:49 04/22/2024 08:30:24 Cough 11667679 R05.9 -Patient tested positive for covid-Tita ent to continue supportive care to help manage symptoms-P atient to return to clinic if symptoms worsen or do not improve.-E R precaution s advised HIV screen ing declined 0773751667 81700 Z53.20 Adult heal th examination 032769909 Z00.00 The patient was counseled regarding the appropriat e use ofalcohol, screening procedures and recommende d schedule for colonoscop y, cholestero l, thyroid and diabetes screening, prevention of dental and periodonta l disease, diet, regular sustained exercise for at least 30 minutes 3-4 times per week, regular use of seat belts.Oscar mmend dilated eye exam and glaucoma screening every 2 years or as indicated by ophthalmol sandra Vitamin D deficiency 347 93566 E55.9 -Recommend taking vitamin D supplement cholecalci ferol 1000 internatio nal units by mouth daily-Oscar mmended foods high in vitamin D including: Milk, fortified orange juice, yogurt, salmon, canned tuna, cod liver oil and cereals with vitamin D added-Becky tor vitamin d levels Vitamin B1 2 deficiency (non anemic) 00602338 E53.8 -Check B12 Seizure [id number] R56.9 -PCP previously managed anti-seizu re medication s-Patient agreeable to neurologis t referral for further management -Check phenytoin level-Cont inue current therapy until patient can see neurologis t: Dilantin 300mg TID Acute left otitis media 645911553 H66.92 -mild erythema noted-Tita ent tested positive for covid. Patient to monitor symptoms and return to clinic if they worsen or do not improve-ER precaution s advised COVID-19 157963003 U07.1 -Patient tested positive for covid-Tita ent to continue supportive care to help manage symptoms-P atelijah agreeable to symptom management with tessalon perles PRN, continue tylenol PRN.-Patie nt to return to clinic if symptoms worsen or do not improve.-P georges is currently taking tylenol q2 hours. 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 She quit 2020. She used to smoke 2PPD.-LDCT ordered- e patient continues to use tobacco despite previous direction toquit. The patient is aware of risks of tobacco, which includes developing cancer, emphysema, and premature cardiovasc ular disease. [id number] Gil Mcmanus MD [facility] [place] [address] [place] [place] [address] 03/26/2024 09:34:42 03/30/2024 11:54:04 Acute on chronic diastolic heart failure 430024793 I50.33 Hypokalemia 73231161 E87 .6 COVID-19 651610328 U07.1 [id number] Gil Mcmanus MD [facility] [place] [address] [place] [place] [address] 04/09/2024 09:30:33 04/10/2024 10:58:13 Dyspnea on exertion 66491116 R06.09 R07.9 I50.32 Acute on c hronic diastolic heart failure 990263806 I50.33 Hypokalemia 10126684 E87 .6 Chest pain 51259356 R07. 9 Mixed hyperlipidemia 267 775137 E78.2 Obesity 501407575 E66.9 [id number] Gil Mcmanus MD [facility] My [facility] - [place] [address] [place] [address] 04/23/2024 09:36:28 04/24/2024 16:27:50 Obesity 021329092 E66.9 Chest pain 76126329 R07. 9 I50.33 [id number] [facility]- [facility] [address] [place] [address] 04/30/2024 14:23:06 05/21/2024 12:52:03 Hernia of abdominal cavity 57643818 K46.9 -managemen t per general surgeon-UD S completed, controlled substance agreement signed-primo pradhan to verify the patient's persistent pain-janette nue current therapy: Hydrocodon e 5 mg acetaminop hen 325 p.r.n.-ER precaution s advised-rey barclay has close follow-up scheduled Ostomy pat ient problem 015589674 Z93.9 -Patient is seeing wound care for management . Reports worsening skin condition due to uncontroll ed hernia.-rey barclay agreeable to home health referral for further assistance Seizure disorder 3338361 02 G40.909 -Patient has appointmen t in september with neurologis t. Patient requesting refills until then. APPRAISER PERSONAL PROPERTY discussed risks of too high dose. Patient verbalized understand ing.-APPRAISER PERSONAL PROPERTY to provide refills until September Chronic ob structive pulmonary disease 13382382 J44.9 -patient has appointmen t with pulmonolog ist in April-Tita ent has not been using ellipta-rey barclay agreeable to restarting ellipta and trying to decreased albuterol use.-ER precaution s advised HIV screen ing declined [id number] 35534 Z53.20 [id number] Gil Mcmanus MD [facility] [place] [address] [place] [address] 05/21/2024 09:32:17 05/21/2024 10:27:03 Acute on chronic diastolic heart failure 776793980 I50.33 continue furosemide 80 mg q.a.m. and 40 mg q.p.m.. We will hold off on further up titration of loop diuretics due to previous issues with profound hypokalemi a and hypomagnes emia. Up titrate spironolac tone from 25 mg daily to 50 mg daily. Heart failure precaution s again discussed. based on right heart catheteriz ation numbers, we will consider addition of SGLT2 inhibitors also Chest pain 04813132 R07. 9 I50.33 No recurrence of chest pain since last evaluation . Concern for balanced ischemia on pharmacolo gic stress testing. Plans for cardiac catheteriz ation in the next few days at [facility]. Red flag symptoms to seek sooner medical attention in the interim again discussed at length. Has allergy to contrast and she will reportedly receive premedicat ion per performing cardiologi st Obesity 306827991 E66.9 Preoperati ve cardiovascular examination 408888255 Z01.810 currently high cardiac risk to proceed with elective GI surgical procedure including stoma revision. Discussed that following performanc e of PCI she will need to be on dual antiplatel et therapy uninterrup ronaldo for at least 3 months and preferably 6 months which she understand s and we will convey to her GI surgeon. Plan cardiology follow-up after cardiac catheteriz ation. Health Concerns Section Related Observation LastModified by Organization Detai ls LastModified Time None Recorded Concern Status LastModified by Organization Details LastModified Time None Recorded Advance Directives Directive N: Payers Encounter Date Sequence Insurance Name Policy Number Policy Hunter Covered Member ID Hunter Member ID Guarantor Name 03/26/2024 [place] [facility] Vashti L Santana [id number] Vashti L Santana 03/26/2024 1 [place] (MEDICARE[place] Vashti L Santana [id number] Vashti L Aguilar 04/09/2024 1 [place]ARE[place] (MEDICARE) Vashti L Santana [id number] Vashti L Santana 04/23/2024 1 [place]ARE-[place] (MEDICARE) Vashti L Aguilar [id number] Vashti L Santana 04/30/2024 1 [place] (MEDICARE) Vashti L Santana [id number] 6 Vashti L Aguilar 05/21/2024 1 [place] (MEDICARE) Vashti L Aguilar [id number] Vashti L Santana Notes Date Note Type Note Provider Name and Address Organization Details Recorded Time 03/26/2024 text/html 54-year-old with heart failure preserved ejection fraction, obesity, hypertension, mixed hyperlipidemia and Crohn's disease with subsequent stoma placement. Interval history: Recently diagnosed with COVID. Reports increasing dyspnea with 5 lb weight gain at home scale, orthopnea. Lower extremity edema off and on. Denies chest pain or pressure. Denies palpitations, presyncope or syncope. Reports left arm pain which is positional with no relationship with exertion. Reports low-grade fevers. Labs:03/22/2024: Sodium 140, potassium 3.4, chloride 106, CO2 19, BUN 26, creatinine 0.93, proBNP less than 36, total cholesterol 189, TG 197, HDL 81, LDL 76, HGB A1c 5.8 Diagnostics:Twelve lead EKG 03/05/2024: Sinus rhythm, RSR pattern, left atrial enlargement transthoracic echocardiogram 09/09/2023: LVEF 63%, normal LV filling pressures with diastolic dysfunction, RVSP 36 mmHg, normal myocardial strain, normal IVC Lexiscan nuclear stress test 03/31/2023: LVEF greater than 70%, no scintigraphic evidence of myocardial ischemia Sleep study, April 2022: Severe MATT with AHI of 45.1 Chest x-ray 03/22/2024: 9 mm nodular opacity overlying the left 6th rib, no acute cardiopulmonary process Gil Mcmanus MD Attn: [address]ing[address] [place], [address], [facility] 03/26/2024 13:34:13 04/09/2024 text/html 54-year-old with heart failure preserved ejection fraction, obesity, hypertension, mixed hyperlipidemia, Rheumatoid arthritis, family history of CAD with PCI in her mother in her early 60s and Crohn's disease with subsequent stoma placement. Interval history: R still continues to low-dose orthopnea, dyspnea, lower extremity edema. Also noticing chest tightness, substernal, heaviness, no significant exertional component, some degree of radiation to the left arm although not consistently. Denies palpitations, presyncope or syncope. Denies bleeding diathesis. Denies previous coronary intervention or [place]. Reports anaphylaxis with respiratory distress to contrast. Labs:03/22/2024: Sodium 140, potassium 3.4, chloride 106, CO2 19, BUN 26, creatinine 0.93, proBNP less than 36, total cholesterol 189, TG 197, HDL 81, LDL 76, HGB A1c 5.8 Diagnostics:Twelve lead EKG 03/05/2024: Sinus rhythm, RSR pattern, left atrial enlargement Transthoracic echocardiogram 09/09/2023: LVEF 63%, normal LV filling pressures with diastolic dysfunction, RVSP 36 mmHg, normal myocardial strain, normal IVC Lexiscan nuclear stress test 03/31/2023: LVEF greater than 70%, no scintigraphic evidence of myocardial ischemia Sleep study, April 2022: Severe MATT with AHI of 45.1 Chest x-ray 03/22/2024: 9 mm nodular opacity overlying the left 6th rib, no acute cardiopulmonary process Gil Mcmanus MD Attn: [address]ing[address] [place], [address], [facility] 04/09/2024 10:22:20 04/23/2024 text/html 54-year-old with heart failure preserved ejection fraction, obesity, hypertension, mixed hyperlipidemia, Rheumatoid arthritis, family history of CAD with PCI in her mother in her early 60s and Crohn's disease with subsequent stoma placement. Interval history: recent hospitalization at [facility] and discharged on 04/22/2024 with bleeding across her stoma. She continues to have exertional chest pressure which is substernal, pressure-like with activity limiting dyspnea and chest pain. She denies any palpitations, presyncope or syncope. Her bleeding has abated and she denies any further bleeding through her stomal site. She has a subacromial impingement to see a GI surgeon at [facility] in the next few weeks. Gil Mcmanus MD Attn: [address] [place], [address], [place] [facility] 04/23/2024 11:14:31 04/30/2024 text/html Patient presents to the clinic for hospital follow up. Patient's past medical history includes: Chronic mastitis, CHF, crohn's disease, RA, seizures, tobacco user, vitamin B12 deficiency, vitamin d deficiency, MATT, GERD, total hysterectomy, colostomy, and stent between liver and pancreas. -patient was admitted to [facility] April 21, 2024, for stoma pain. Her CT scan showed mild skin thickening around the stoma which is similar to prior scan in March. Patient was admitted for observation and surgical consult was placed. Patient was noted to be anemic while hospitalized. Patient to follow up with surgeon to determine hernia repair.-Patient reports she has been gaining water weight.-She has been having issues with breathing, using albuterol and nebulizer regularly. APPLE TRUONG Attn: [address]ing[address] [facility], [place], [address], [facility] - [facility] 05/19/2024 20:28:52 05/21/2024 text/html 54-year-old with heart failure preserved ejection fraction, obesity, hypertension, mixed hyperlipidemia, Rheumatoid arthritis, family history of CAD with PCI in her mother in her early 60s and Crohn's disease with subsequent stoma placement. Interval history: has seen GI surgery with plans for stoma revision after optimization of cardiac status. Reports having gained 1 lb since last clinic visit. No chest pain or pressure since last evaluation. Continues to have exertional dyspnea with minimal activity Gil Mcmanus MD Attn: [address] [facility], [place], [address], [facility] 05/24/2024 13:47:36 OBGyn Episode No OBEpisode recorded.
--- OUTSIDE RECORDS SUMMARY | 2024-05-25 18:21 | XMS_ITS | Encounter Summary ---
Author Organization [facility] Address [address] [place] [address] Phone Care Team Providers Care Consumer Electronic Retail Specialist Name Role Phone Kaitlyn Benavides Nolan GUZMAN, RETURNED MATERIALS INSPECTOR Unavailable [phone] Maggie Orosco MD Primary Care Provider [phone] Blanco Moise MD Unavailable [phone] Chase Mcmillan MD Unavailable Harjeet Tao MD Unavailable Kendra Gabriel STAFFING OPERATIONS MANAGER, RETURNED MATERIALS INSPECTOR Unavailable [phone] Reason for Visit * Reason Onset Date Comments Labs Only 02/16/2021 Encounter Details Date Type Department Care Team (Late st Contact Info) Description 02/16/2021 Telephone [facility] - [facility] [address] [place] [address] Blanco Moise MD [address] [place], [place] [id number] Labs Only Social History Tobacco Use Types Packs/Day Years Used Date Smoking Tobacco: Every Day Cigarettes 0.3 38.2 Started: 02/23/1986 Smokeless Tobacco: Never Comments:used to smoke 1 ppd , now 0.25 ppd Alcohol Use Standard Drinks/Week Comments No 0 (1 standard drink = 0.6 oz pur e alcohol) none Sexually Active Control Partners Comments Not Currently Male Comments No Sex and Gender Information Value Date Recorded Sex Assigned at Not on file Legal Sex Female 7:15 PM CDT Gender Identity Not on file Sexual Orientation Not on file Occupation Industry Job Start Date Job End Date state of [place] Not on file Not on file Not on file COVID-19 Exposure Response Date Recorded In the last month, have you been in contact with someone who was confirmed or suspected to have Coronavirus / COVID-19? No / Unsure 02/19/2021 10:56 AM ELECTRICIAN MAINTENANCE documented as of this encounter Miscellaneous Notes * Telephone Encounter - Quique Castle CMA - 02/16/2021 2:28 PM ELECTRICIAN MAINTENANCE Patient returned call to office, she is okay with the increase form 50 mg to 100 mg of the azathioprine. She will increase the 50 mg that she has on hand until out. Patient has appointment set up for02/22/[address] Moise. Patient verbalized understanding TRICIAN MAINTENANCE * Telephone Encounter - Cinthia Tyson RN - 02/16/2021 2:05 PM ELECTRICIAN MAINTENANCE VM left for pt to return call to discuss labs. Order proactively pended. ----- Message from VINAYAK Appiah sent at 02/16/2021 12:20 PM ELECTRICIAN MAINTENANCE ----- Please advise message from Dr. Magana as below. Recommend increasing her current Imuran 50 mg to 100mg. She may use 2 of her current supply until gone. Please pend order for new dose if she agrees. HILARIA ----- Message ----- From: Blanco Moise MD Sent: 02/16/2021 11:31 AM ELECTRICIAN MAINTENANCE To: VINAYAK Appiah, # Patient metabolizes for Imuran are low. This suggests low dosing. Her Imuran dose should be increased to at least 100 mg. TRICIAN MAINTENANCE TRICIAN MAINTENANCE documented in this encounter Plan of Treatment Upcoming Encounters Date Type Department Care Team (Late st Contact Info) Description 06/10/2024 8:00 AM CDT Appointment [facility] [address] [place] [address] Luiza Gee, STAFFING OPERATIONS MANAGER, RETURNED MATERIALS INSPECTOR [address] [place] [address] Discharge Disposition: Discharged to home or Selfcare documented as of this encounter Visit Diagnoses Diagnosis Crohn's colitis, other complication (HCC)- Primary documented in this encounter Additional Health Concerns Infection Onset Date Last Indicated Resolved Time COVID - 19 04/28/2021 04/28/2021 04/29/2021 6:26 AM CDT COVID - 19 10/06/2021 10/06/2021 10/06/2021 12:4 9 PM CDT COVID - 19 Confirmed 10/06/2021 10/06/2021 022 12:16 AM CDT COVID - 19 03/21/2022 03/21/2022 03/31/2022 12:1 6 AM ELECTRICIAN MAINTENANCE C. difficile Rule-Out 04/25/2022 04/25/20222022 4:28 PM CDT COVID - 19 04/20/2023 04/20/2023 04/20/2023 11:4 5 AM ELECTRICIAN MAINTENANCE COVID - 19 04/20/2023 04/20/2023 04/21/2023 8:48 AM ELECTRICIAN MAINTENANCE COVID - 19 07/09/2023 07/09/2023 07/09/2023 3:51 PM CDT documented as of this encounter Care Teams Consumer Electronic Retail Specialist Relationship Specialty Start Date End Date Maggie Orosco MD [address] [place] [address] PCP - General Internal Medicine 01/04/16 Kaitlyn Benavides STAFFING OPERATIONS MANAGER, RETURNED MATERIALS INSPECTOR Nurse Practitioner Advanced Practice Nurse 09/02/15 Blanco Moise MD [address] [place] [address] Consulting Physician Gastroenterology 05/20/21 Chase Mcmillan MD [address] [place] [address] Consulting Physician Cardiovascular Disease - Cardiology 05/11/22 01/24/24 Harjeet Cantor MD [address] [facility] [place] [address] [place] [address] Consulting Physician Colon and Rectal Surgery 07/18/22 Kendra Gabriel APRN, RETURNED MATERIALS INSPECTOR [address] [facility], [address] [place] [address] Nurse Practitioner Advanced Practice Nurse 03/17/23 documented as of this encounter
--- OUTSIDE RECORDS SUMMARY | 2024-05-25 18:21 | XMS_ITS | Encounter Summary ---
Author Organization [facility] Address [address] [address] Phone Care Team Providers Care Asset Administrator Name Role Phone Kaitlyn Benavides Nolan GUZMAN, BEEF BONER Unavailable [phone] Maggie Orosco MD Primary Care Provider [phone] Blanco Moise MD Unavailable [phone] Chase Mcmillan MD Unavailable Harjeet Tao MD Unavailable Kendra Gbariel TALENT PROGRAM MANAGER, BEEF BONER Unavailable [phone] Reason for Visit * Reason Comments Medication Refill Encounter Details Date Type Department Care Team (Late st Contact Info) Description 07/14/2022 Refill [facility] - Gastroenterology [facility] [address] [place] [address] Blanco Moise MD [address] [place] [address] Medication Refill Social History Tobacco Use Types Packs/Day Years Used Date Smoking Tobacco: Every Day Cigarettes 0.5 38.2 Started: 02/23/1986 Smokeless Tobacco: Never Comments:quit 1 week ago Alcohol Use Standard Drinks/Week Comments No 0 [...] Start Date Job End Date state of [place] Not on file Not on file Not on file COVID-19 Exposure Response Date Recorded In the last 10 days, have sebastien arroyo been in contact with someone who was confirmed or suspected to have Coronavirus/COVID-19? No / Unsure 07/15/2022 1:34 PM CDT documented as of this encounter Miscellaneous Notes * Telephone Encounter - Meliza Syed RN - 07/14/2022 1:36 PM CDT Medication [facility] and [facility] for pediatric and adult patients. documented in this encounter Plan of Treatment Upcoming Encounters Date Type Department Care Team (Late st Contact Info) Description 06/10/2024 8:00 AM CDT [facility]ment [facility] [address] [place] [address] Luiza Gee TALENT PROGRAM MANAGER, BEEF BONER [address] [place] [address] Discharge Disposition: Discharged to home or Selfcare documented as of this encounter Visit Diagnoses Not on filedocumented in this encounter Additional Health Concerns Infection Onset Date Last Indicated Resolved Time COVID - 19 04/20/2023 04/20/2023 04/20/2023 11:4 5 AM PHYSICAL TRAINER COVID - 19 04/20/2023 04/20/2023 04/21/2023 8:48 AM PHYSICAL TRAINER COVID - 19 07/09/2023 07/09/2023 07/09/2023 3:51 PM CDT documented as of this encounter Care Teams Asset Administrator Relationship Specialty Start Date End Date Maggie Orosco MD [address] [place] [address] PCP - General Internal Medicine 01/04/16 Kaitlyn Benavides, TALENT PROGRAM MANAGER, BEEF BONER Nurse Practitioner Advanced Practice Nurse 09/02/15 Blanco Moise MD [address] [place] [address] Consulting Physician Gastroenterology 05/20/21 Chase Mcmillan MD [address] [facility] [place] [address] Consulting Physician Cardiovascular Disease - Cardiology 05/11/22 01/24/24 Harjeet Cantor MD [address] [facility] [address] [address] [place] [address] Consulting Physician Colon and Rectal Surgery 07/18/22 Kendra Gabriel APRN, BEEF BONER [address] [facility], [address] [address] Nurse Practitioner Advanced Practice Nurse 03/17/23 documented as of this encounter
--- OUTSIDE RECORDS SUMMARY | 2024-05-25 18:21 | XMS_ITS | Clinical Summary ---
Author Organization [facility] Address [address] [facility] [address] [place] [address] Phone Care Team Providers Care Practical [employer] Professor Name Role Phone Kaitlyn Benavides APRN, BRICKLAYER TENDER Unavailable [phone] Maggie Orosco MD Primary Care Provider [phone] Blanco Moise MD Unavailable [phone] Harjeet Cantor MD Unavailable Kendra Gabriel COMMERCIAL FISHERMAN, BRICKLAYER TENDER Unavailable [phone] Allergies Active Allergy Reactions Criticality Noted Date Comments Clarithromycin Hives Medium 03/03/2022 Clindamycin Hives Medium 03/21/2022 Codeine Anaphylaxis High 09/02/2015 Fentanyl Other (see Comments) High 09/02/2015 Seizures Gadolinium Shortness of Breath 04/29/2021 Pt states MRI contrast triggers asthma attacks Ibuprofen Hives 06/09/2016 Iodinated Contrast Media Anaphylaxis,Hiv es,Imelda rtness of Breath 09/25/2015 Latex Hives High 09/02/2015 Bacitracin-Polymyxin B Hives 03/03/2022 Penicillin G Hives Medium 01/27/2016 Raspberry Anaphylaxis 06/09/2016 Metoclopramide Other (see Comments) High 07/24/2021 Seizures Infliximab Other (see Comments) High 04/23/2021 Pt reported nausea with emesis, chills and rigors. Cramping in legs, lower back pain and stabbing chest pain. Patient sent to ED Sulfate Anaphylaxis High 09/02/2015 Tramadol Nausea Low 12/07/2015 Medications Parks-3 Fatty Acids (FISH OIL PO) Take 4 Tabs by mouth 2 times daily. Active Cyanocobalamin (Vitamin B-12 CR) 1000 MCG Tablet Controlled Release Take 2,500 mcg by mouth daily. Active CALCIUM PO Take 1 Tablet by mouth daily. Active MAGNESIUM PO Take 440 mg by mouth in the morning and at bedtime. Active cholecalciferol 25 mcg Tablet Take 25 mcg by mouth daily. Active potassium chloride SA (KLORCON M) 20 MEQ Tablet Controlled Release Take 2 Tablets by mouth 2 times daily (with meals). 120 Tablet 2 Active albuterol 108 (90 Base) MCG/ACT Aerosol Solution take 2 Puffs by inhalation every 6 hours as needed for Wheezing. 18 g 2 Active omeprazole (PriLOSEC) 40 MG CAPSULE DELAYED RELEASE TAKE ONE CAPSULE BY MOUTH ONCE DAILY 90 Capsule 3 3 Active Additional Information Patient taking differently: 40 mg Oral 2 times daily, Reported on 11/11/2022 naloxone HCl (Narcan) 4 MG/0.1ML Liquid 1 Alma by Nasal route as needed for Opioid Reversal (opioid overdose). administer for symptoms of overdose (severe sleepiness, breathing problems, not responsive). Call 911. May use additional dose to repeat 1 spray intranasally in 2-3 minutes if needed. 2 Each 3 Active carvedilol (COREG) 3.125 MG Tablet Take 1 Tablet by mouth 2 times daily. 180 Tablet 3 Active ondansetron (ZOFRAN-ODT) 4 MG TABLET DISPERSIBLE Take 1 Tablet by mouth every 6 hours as needed for Nausea - 1st line. 10 Tablet 3 Active montelukast (SINGULAIR) 10 MG Tablet Take 10 mg by mouth every evening. 3 Active Stelara 90 MG/ML Solution Prefilled Syringe 90 mg by Subcutaneous route every 30 days. 4 Active albuterol (ACCUNEB) 0.63 MG/3ML Nebulizer Soln take 3 mL by inhalation every 6 hours as needed for Wheezing or Shortness of Breath. Active sodium chloride 0.9 % Solution 1,000 mL by Intravenous route daily. Active phenytoin (DILANTIN) 50 MG Chewable Tablet Take 175 mg by mouth 3 times daily. Active HYDROcodone-demi taminophen (NORCO) 5-325 MG TabletIndicatio ns:Abdominal pain Take 1 Tablet by mouth every 4 hours as needed for Severe pain. 30 Tablet 4 Active ondansetron (ZOFRAN-ODT) 4 MG TABLET DISPERSIBLE Take 1 Tablet by mouth every 8 hours as needed for Nausea - 1st line. 10 Tablet 4 Active Active Problems Problem Noted Date Diagnosed Date Musculoskeletal chest pain 04/21/2023 Crohn disease 04/21/2023 Urinary tract infection 04/21/2023 Sore throat 04/21/2023 Multifocal pneumonia 04/20/2023 Inguinal abscess 11/03/2022 Enteritis 11/02/2022 Hypokalemia 04/21/2022 Hypomagnesemia 04/21/2022 Gluteal abscess 07/24/2021 Osteomyelitis of sacrum 05/02/2021 Abdominal pain 04/28/2021 Cellulitis of left lower extremity 05/11/2020 Sepsis 05/11/2020 Perianal abscess 02/25/2020 Pain in right buttock 02/23/2020 Lung nodule 03/22/2016 Gastroesophageal reflux disease without esophagi tis 03/22/2016 Centrilobular emphysema 03/22/2016 SOB (shortness of breath) 03/22/2016 Cough 03/22/2016 Rheumatoid arthritis involvi ng both knees with negative rheumatoid factor 03/22/2016 Seizure 03/22/2016 COPD (chronic obstructive pulmonary disease) 02/2016 Crohn's colitis, unspecified complication Vitamin D deficiency Tobacco dependence syndrome Epilepsy B12 deficiency Anal fistula Crohn's disease of perianal region with fistula Resolved Problems Problem Noted Date Diagnosed Date Resolved Date Generalized abdominal pain 04/21/2022 0 04/24/2022 Perirectal abscess 02/08/2021 3 Encounters Date Type Department Care Team Description 04/22/2024 [facility] [address] [place] [address] Luiza Gee M, COMMERCIAL FISHERMAN, BRICKLAYER TENDER Cigarette nicotine dependence, uncomplicated (Primary Dx) 03/05/2024 5:36 PM SIGNAL MAINTENANCE TECHNICIAN - 03/05/2024 6:08 PM SIGNAL MAINTENANCE TECHNICIAN Emergency [facility] Emergency [address] [place] [address] Florence Miller, COMMERCIAL FISHERMAN, BRICKLAYER TENDER Dental infection Discharge Disposition: Discharged to home or Selfcare 03/05/2024 Travel from Last 3 Months Immunizations Immunization Administration Dates Next Due Hepatitis A Vaccine 03/06/2001,07/04/2000 Influenza Vaccine greater than 3 yrs 12/21/2015 Influenza Vaccine, Quadrivalent, PF 02/24/2020,0 04/12/2019 Influenza, Injectable, Quadrivalent 05/2020,11/14/2019,11/17/2016,12/23,02/16/2015 Influenza, Seasonal, Injecta ble, Undefined 12/21/2015,11/13/2014,11/13/2013 Pneumococcal Vaccine Adult - 23 Valent 6 Pneumococcal conjugate PCV20 , polysaccharide [id number] conjugate, adjuvant, PF 04/22/2023 TDAP Vaccine 01/24/2022,05/18/2015 Family History Medical History Relation Name Comments Alcohol Abuse Brother 1 Depression Brother 1 Anxiety disorder Brother 2 Depression Brother 2 Depression Daughter Cancer Father pancreatic, bra in liver lung Diabetes Maternal Grandfather Diabetes Maternal Grandmother Heart Disease Mother Cancer Paternal Grandfather Cancer Paternal Grandmother Anxiety disorder Son Depression Son Parkinsonism Son Relation Name Status Comments Brother 1 Alive Brother 2 Alive Daughter Alive Father Maternal Grandfather Maternal Grandmother Mother Alive Paternal Grandfather Paternal Grandmother Son Alive Social History Tobacco Use Types Packs/Day Years Used Date Smoking Tobacco: Former Cigarettes 0.5 34 0 02/23/1986 - 2020 Smokeless Tobacco: Never Tobacco Cessation:Counseling Given: Not Answered Comments:quit 1 week ago Alcohol Use Standard Drinks/Week Comments No 0 (1 standard drink = 0.6 oz pur e alcohol) none [facility] Utilities Answer Date Recorded In the past 12 months has e [employer], gas, oil, or water company threatened to shut off services in your home? Patient declined 04/20/2023 Social Connection and Isolation Panel [NHANES] A nswer Date Recorded In a typical week, how many times do you talk on the phone with family, friends, or neighbors? Patient declined 04/20/2023 How often do you get togethe r with friends or relatives? Patient declined 04/20/2023 How often do you attend oriental orthodox or faith serv ices? Patient declined 04/20/2023 Do you belong to any clubs o r organizations such as oriental orthodox groups, unions, fraternal or athletic groups, or school groups? Patient declined 04/20/2023 How often do you attend meet ings of the clubs or organizations you belong to? Patient declined 04/20/2023 Are you , , di vorced, , never , or living with a partner? Patient declined 04/20/2023 AUDIT-C Answer Date Recorded Q1: How often do you have a drink containing alc ohol? Patient declined 04/20/2023 Q2: How many drinks containi ng alcohol do you have on a typical day when you are drinking? Patient declined 04/20/2023 Q3: How often do you have si x or more drinks on one occasion? Patient declined 04/20/2023 Overall Financial Resource Strain (CARDIA) Answe r Date Recorded How hard is it for you to pa y for the very basics like food, housing, medical care, and heating? Patient declined 04/20/2023 [facility] - Occupational Stress Questionnaire Answer Date Recorded Do you feel stress - tense, restless, nervous, or anxious, or unable to sleep at night because your mind is troubled all the time - these days? Patient declined 04/20/2023 Exercise Vital Sign Answer Date Recorde d On average, how many days pe r week do you engage in moderate to strenuous exercise (like a brisk walk)? Patient declined On average, how many minutes do you engage in exercise at this level? Patient declined 04/20/2023 Hunger Vital Sign Answer Date Recorded Within the past 12 months, y ou worried that your food would run out before you got the money to buy more. Patient declined Within the past 12 months, t he food you bought just didn't last and you didn't have money to get more. Patient declined 08/2023 PRAPARE - Transportation Answer Date Re corded In the past 12 months, has l ack of transportation kept you from medical appointments or from getting medications? Patient declined 04/20/2023 In the past 12 months, has l ack of transportation kept you from meetings, work, or from getting things needed for daily living? Patient declined 04/20/2023 Housing Stability Vital Sign Answer Ricci e Recorded In the last 12 months, was t here a time when you were not able to pay the mortgage or rent on time? Patient declined 04/20/19 24 In the last 12 months, how many places have you lived? 1 04/20/2023 In the last 12 months, was t here a time when you did not have a steady place to sleep or slept in a long term (including now)? Patient declined 04/20/2023 Sexually Active Control Partners Comments Not Currently Male Comments No Sex and Gender Information Value Date Recorded Sex Assigned at Not on file Legal Sex Female 7:15 PM CDT Gender Identity Not on file Sexual Orientation Not on file Occupation Industry Job Start Date Job End Date [place] Not on file Not on file Not on file Last Filed Vital Signs Vital Sign Reading Time Taken Comments Blood Pressure 153/82 03/05/2024 5:38 PM SIGNAL MAINTENANCE TECHNICIAN Pulse 98 03/05/2024 5:38 PM SIGNAL MAINTENANCE TECHNICIAN Temperature 36.8 C (98.2 F) 03/05/2024 5:38 PM SIGNAL MAINTENANCE TECHNICIAN Respiratory Rate 18 03/05/2024 5:38 PM SIGNAL MAINTENANCE TECHNICIAN Oxygen Saturation 97% 03/05/2024 5:38 PM SIGNAL MAINTENANCE TECHNICIAN Inhaled Oxygen Concentration - - Weight 108 kg (238 lb) 03/05/2024 5:38 PM SIGNAL MAINTENANCE TECHNICIAN Height 165.1 cm (5' 5 ) 03/05/2024 5:38 PM SIGNAL MAINTENANCE TECHNICIAN Body Mass Index 39.61 03/05/2024 5:38 PM SIGNAL MAINTENANCE TECHNICIAN Plan of Treatment Upcoming Encounters Date Type Department Care Team (Late st Contact Info) Description 06/10/2024 8:00 AM CDT Appointment [facility] [address] [place] [address] Luiza Gee, COMMERCIAL FISHERMAN, BRICKLAYER TENDER [address] [place] [address] Discharge Disposition: Discharged to home or Selfcare Health Maintenance Due Date Last Done Comments Hepatitis B Immunization (1 of 3 - 19+ 3-dose series) 02/07/1988 Cologuard 2019 Immunochemical Fecal Occult Blood 2019 Zoster Immunization (1 of 2) 2019 SARS-COV-2 Immunization ( season) 2023 09/29/2022, 12/18/2020, 06/01/2020, Additional history exists Colonoscopy 11/17/2023 11/16/2022, 02/13, 03/03/2021, Additional history exists Colorectal Cancer Screening 11/17/2023 Mammogram 06/05/2024 06/06/2023 Td Immunization Every 10 Years (Adults With 1 Tdap) 01/25/2032 01/24/2022, 05/18/2015 Respiratory Syncytial Virus (RSV) Immunization (Adult) (1 - 1-dose 75+ series) 02/07/2044 11/16/2022, 02/13, 03/03/2021, Additional history exists Hepatitis C Virus (HCV) Screening Completed 03/31/2016, 03/31/2016, 03/31/2016 DTaP/Tdap/Td Immunization Discontinued 01/24/2022, 05/2015 Pneumococcal Immunization (50+ years) Completed 04/22/2023, 02/16/2015 Pneumococcal Immunization Combined Discontinued 04/22/2023, 02/16/2015 Influenza Immunization Completed , 11/09/2023, 11/11/2022, Additional history exists Meningococcal Immunization (ACWY) Aged Out No longer eligible based on patient's age to complete this topic Rotavirus Immunization Aged Out No lo nger eligible based on patient's age to complete this topic Medical Devices Implanted Type Area Seafood Manager Device Identifier Shelf Expiration Date Model / Serial / Lot Medi Loop (Vessel Loop) Implanted:Qty: 1 on 02/24/2020 by Harjeet Cantor MD at [facility] N/A: Rectum 03/14/2020 [id number] / [id number] / [id number] Procedures Procedure Name Priority Date/Time Associated Diagnosis Comments SIMRAN SCREENING BILATERAL DIGITAL W CAD W BIANCA Routine 06/06/2023 9:05 AM CDT Visit for screening mammogram HM COLONOSCOPY 03/03/2021 12:00 AM SIGNAL MAINTENANCE TECHNICIAN HEPATITIS C RNA QUANT PCR VIRAL LOAD Routine 03/31/2016 6:40 AM SIGNAL MAINTENANCE TECHNICIAN Elevated alkaline phosphatase level from Last 3 Months or Most Recently Relevant to Health Maintenance Results * SIMRAN SCREENING BILATERAL DIGITAL W CAD W BIANCA (06/06/2023 9:05 AM CDT) Anatomical Region Laterality Modality breast Bilateral Mammography 06/06/2023 10:0 4 AM CDT Narrative 06/08/2023 2:13 PM CDT - SIMRAN SCREENING BILATERAL DIGITAL W CAD W BIANCA BILATERAL DIGITAL SCREENING MAMMOGRAM 3D/2D WITH CAD WITH MEDIOLATERAL OBLIQUE CRANIOCAUDAL: 06/06/2023 The study was acquired using digital technology and interpreted from soft copy. Current study was also evaluated with [employer] version 7.2. 2D digital mammographic views, as well as 3D digital tomosynthesis were performed in the CC and MLO projections. CLINICAL: New baseline. Routine screening. Patient has no complaints. Possible history of right breast cancer. Two paternal aunts had breast cancer. COMPARISONS: No prior exams were available for comparison. BREAST TISSUE:There are scattered fibroglandular densities in both breasts. FINDINGS: There are benign post operative findings in the right breast. No significant masses, calcifications, or other findings are seen in either breast. IMPRESSION: BI-RAD 2 BENIGN There is no mammographic evidence of malignancy. A 1 year screening mammogram is recommended. A letter will be sent to the patient with these results. The patient will be entered into a reminder system with a target due date of 1 year for her next screening exam. Electronically signed by: Syeda patel/galina:06/08/2023 13:09:23 Pr Internship(s): RT Rachana(Felix)(M), [facility] letter sent: Normal Exam Reading location: [facility] BI-RADS: 2 Benign Procedure Note Syeda Magana MD - 06/08/2023 - SIMRAN SCREENING BILATERAL DIGITAL W CAD W BIANCA BILATERAL DIGITAL SCREENING MAMMOGRAM 3D/2D WITH CAD WITH MEDIOLATERAL OBLIQUE CRANIOCAUDAL: 06/06/2023 The study was acquired using digital technology and interpreted from soft copy. Current study was also evaluated with ICAD version 7.2. 2D digital mammographic views, as well as 3D digital tomosynthesis were performed in the CC and MLO projections. CLINICAL: New baseline. Routine screening. Patient has no complaints. Possible history of right breast cancer. Two paternal aunts had breast cancer. COMPARISONS: No prior exams were available for comparison. BREAST TISSUE:There are scattered fibroglandular densities in both breasts. FINDINGS: There are benign post operative findings in the right breast. No significant masses, calcifications, or other findings are seen in either breast. IMPRESSION: BI-RAD 2 BENIGN There is no mammographic evidence of malignancy. A 1 year screening mammogram is recommended. A letter will be sent to the patient with these results. The patient will be entered into a reminder system with a target due date of 1 year for her next screening exam. Electronically signed by: Syeda Magana M.D. ab/penrad:06/08/2023 13:09:23 Pr Internship(s): RT Rachana(R)(M), [facility] letter sent: Normal Exam Reading location: [facility] BI-RADS: 2 Benign us Maggie Orosco MD IMG MAMMO ORDERABLES Final Re sult * HM COLONOSCOPY (03/03/2021 12:00 AM SIGNAL MAINTENANCE TECHNICIAN) 03/03/2021 us Not On File Provider PROCEDURE/MINOR SURGICAL OR DERABLES Final Result SCAN * HEPATITIS C RNA QUANT PCR VIRAL LOAD (03/31/2016 6:40 AM SIGNAL MAINTENANCE TECHNICIAN) HCV RNA QUANT PCR NON DETECTED NON DETECTED 04/06/2016 8:04 AM SIGNAL MAINTENANCE TECHNICIAN [facility] HCV RNA QT LOG10 <1.18 Log10 IU/mL 04/06/2016 8:04 AM SIGNAL MAINTENANCE TECHNICIAN [facility] Comment: LOG 10 is not applicable. Sample held in Serology for 1 month. Call Laboratory if further testing is desired. This test was performed using TRIPP AmpliPrep TRIPP Taq Man Real Time PCR. Blood specimen (specimen) Venipuncture / Unknown 03/31/2016 6:40 AM SIGNAL MAINTENANCE TECHNICIAN 03/31/2016 8:00 AM SIGNAL MAINTENANCE TECHNICIAN us Estela Hatch COMMERCIAL FISHERMAN, BRICKLAYER TENDER IMMUNOLOGY ORDERA BLES Final Result [facility] [address] [place] [address], from Last 3 Months or Most Recently Relevant to Health Maintenance Insurance MEDICARE Advance Directives * Full Code (Latest Code Status on File) Date Activated Date Inactivated Comments 04/20/2023 8:26 PM 04/22/2023 2:11 PM CPR-Full Treat ment: FULL ARREST: Attempt Resuscitation/CPR with intubation and mechanical ventilation. Patient does not wish defibrillation PRE-ARREST: Use entire range of life support measures to stabilize the patient. * Full Code Date Activated Date Inactivated Comments 11/02/2022 1:13 PM 11/05/2022 2:41 PM CPR-Full Guzman atment: FULL ARREST: Attempt Resuscitation/CPR wit intubation and mechanical ventilation. PRE-ARREST: Use entire range of life support measures to stabilize the patient. * Full Code Date Activated Date Inactivated Comments 04/21/2022 2:03 PM 04/24/2022 12:36 PM CPR-Full Guzman atment: FULL ARREST: Attempt Resuscitation/CPR wit intubation and mechanical ventilation. PRE-ARREST: Use entire range of life support measures to stabilize the patient. * Full Code Date Activated Date Inactivated Comments 07/24/2021 4:23 PM 07/29/2021 1:41 AM CPR-Full Guzman atment: FULL ARREST: Attempt Resuscitation/CPR wit intubation and mechanical ventilation. PRE-ARREST: Use entire range of life support measures to stabilize the patient. * Full Code Date Activated Date Inactivated Comments 04/28/2021 3:45 PM 05/03/2021 7:03 PM CPR-Full Guzman atment: FULL ARREST: Attempt Resuscitation/CPR wit intubation and mechanical ventilation. PRE-ARREST: Use entire range of life support measures to stabilize the patient. Care Teams [employer] Minist[employer] Professor Relationship Specialty Start Date End Date Maggie Orosco MD [address] [place] [address] PCP - General Internal Medicine 01/04/16 Kaitlyn Benavides APRN, BRICKLAYER TENDER Nurse Practitioner Advanced Practice Nurse 09/02/15 Blanco Moise MD [address] [place] [address] Consulting Physician Gastroenterology 05/20/21 Harjeet Cantor MD [address] [address] Consulting Physician Colon and Rectal Surgery 07/18/22 Kendra Gabriel, COMMERCIAL FISHERMAN, BRICKLAYER TENDER [address] [address] Nurse Practitioner Advanced Practice Nurse 03/17/23
--- OUTSIDE RECORDS SUMMARY | 2024-05-25 18:21 | XMS_ITS | Clinical Summary ---
Author Organization [facility] Address [address] [place] [address] Care Team Providers Care Accordion Maker Name Role Phone Unavailable Primary Care Provider Unavailabl e Source Comments [facility],non-owned Affiliates and Associated Physician Practices is amultiple site organization consisting of ambulatory clinics and hospital sitesin [place], [place], [place] and [place]. This disclosure is being madepursuant to the Care Everywhere program and may not contain all information available regarding this patient. Last updated 17.[facility] Medications * Be aware that medications may not be up to date on this document. Alwaysverify current medications with the patient. No known medications Social History Tobacco Use Types Packs/Day Years Used Date Smoking Tobacco: Never Assessed Comments Unknown Sex and Gender Information Value Date Recorded Sex Assigned at Not on file Legal Sex Female 5:50 AM OB/GYN NURSE Gender Identity Not on file Sexual Orientation Not on file Plan of Treatment Health Maintenance Due Date Last Done Comments COLOGUARD (AGES 45-75) - COLON CA SCREENING 1969 COLON MONITORING 1969 COLONOSCOPY - COLON CA SCREENING 1969 CT COLONOGRAPHY - COLON CA SCREENING 1969 Colorectal Cancer Screening 1969 FIT - COLON CA SCREENING 1969 FLEX SIG - COLON CA SCREENING 1969 LIPID TESTING 1969 MAMMOGRAM 1969 MEDICARE AWV 12 MONTHS 1969 HIV SCREENING 02/07/1984 HEPATITIS C SCREENING 02/02/1987 DTAP/TDAP/TD VACCINES (1 - Tdap) 02/07/1988 HEPATITIS B VACCINE (1 of 3 - 19+ 3-dose series) 02/07/1988 PAP SMEAR 10/06/2000 10/06/1997 PNEUMOCOCCAL VACCINE 50+ (1 of 1 - PCV) 2019 ZOSTER VACCINE (1 of 2) 2019 COVID-19 VACCINE (1 - season) 2023 DEPRESSION SCREENING 02/14/2024 INFLUENZA VACCINE (Season Ended) 2024 12/17/2020, 02/24/2020, 11/14/2019, Additional history exists HIB VACCINE Aged Out No longer eligi ble based on patient's age to complete this topic HPV VACCINE Aged Out No longer eligi ble based on patient's age to complete this topic MENINGOCOCCAL (Group B) VACCINE SHARED DECISION-MAKING Aged Out No longer eligible based on patient's age to complete this topic MENINGOCOCCAL GROUPS A/C/Y/W VACCINE Aged Out No longer eligible based on patient's age to complete this topic PNEUMOCOCCAL VACCINE Aged Out No long er eligible based on patient's age to complete this topic Procedures Procedure Name Priority Date/Time Associated Diagnosis Comments CYTOLOGY SMEAR PAP THIN PREP AYDIN 10/06/1997 8:17 AM CDT from Last 3 Months or Most Recently Relevant to Health Maintenance Results * CYTOLOGY SMEAR PAP THIN PREP (10/06/1997 8:17 AM CDT) Result CASE NUMBER [id number] Comment: ORDERING PHYSICIAN CORINNE BENÍTEZ SPECIMEN TYPE PAP Smear Date 09/29/1997 Procedure Cervical/Endocervical, 1 Vial for Thin Prep Received Specimen Adequacy Satisfactory for Evaluation Categorization Benign Cellular Changes Comment Predominance of Coccobacilli Consistent with Shift in Vaginal Myra. Snomed. 10/08/1997 1051 <1> Inventory Controller Miguel Ambrosio(ASCP) PAP Footnote The PAP smear is only a screening procedure to aid in the detection of cervical cancer and its precursors. It is not a diagnostic procedure and should not be used as the sole means to detect cervical cancer. Both false negative and false positive results have been experienced. MISCELLANEOUS SAMPLES / Unknown 10/06/1997 8:17 AM CDT 10/06/1997 10:17 AM CDT us Historical Provider LAB - PATHOLOGY/CYTOLOGY ORDERABLES Final Result from Last 3 Months or Most Recently Relevant to Health Maintenance [place] [address] [place] [address] [employer]
[2024-05-25] MEDS: TETRACAINE HCL 0.5% OPHTH SOLN 4 ML BTL RIGHT EYE (19:02)
[2024-05-25] MEDS: FLUORESCEIN SOD 1 MG/STRIP RIGHT EYE (19:02)
[2024-05-25] MEDS: DACRIOSE EYE IRRIGATION 118 ML BOTTLE RIGHT EYE (19:04)
--- NOTE | 2024-05-25 19:33 | ED_ITS ---
HPI - Eye Problem General Chief complaint: Eye Problems Stated complaint: Eye Problem Source: patient Mode of arrival: ambulatory Limitations: no limitations History of Present Illness HPI Narrative: Pt presents for evaluation of of bilateral eye irritation for the past four days after doing work outdoors. She has noticed itching, redness, tearing. She has some mild blurred vision on the right. Her right eye has been matted shut when she wakes from sleep in the morning. She wears glasses but not contacts. She has not tried any medications to assist with her symptoms. Related Data Home Medications ?Medication ?Instructions ?Recorded ?Confirmed ?Last Taken ?Type albuterol sulfate 90 mcg/actuation 90 inh inhalation DIRECTED 01/13/23 01/13/23 Unknown History aerosol inhaler carvedilol 6.25 mg tablet 6.25 mg DIRECTED 01/13/23 01/13/23 Unknown History hydroxyzine HCl 25 mg tablet 25 mg DIRECTED 01/13/23 01/13/23 Unknown History omeprazole 20 mg capsule,delayed 20 mg DIRECTED 01/13/23 01/13/23 Unknown History release phenytoin 50 mg chewable tablet 50 mg DIRECTED 01/13/23 01/13/23 Unknown History (Dilantin Infatabs) potassium chloride 10 mEq 10 meq PO DIRECTED 01/13/23 01/13/23 Unknown History tablet,extended release ustekinumab 90 mg/mL subcutaneous 90 mg subcut DIRECTED 01/13/23 01/13/23 Unknown History syringe (Stelara) aspirin 81 mg tablet,delayed 81 mg PO DAILY 05/25/24 Unknown History release (Adult Aspirin Regimen) atorvastatin 20 mg tablet mg 05/25/24 Unknown History cholecalciferol (vitamin D3) 1,250 05/25/24 Unknown History mcg (50,000 unit) capsule furosemide 40 mg tablet mg 05/25/24 Unknown History magnesium oxide 400 mg (241.3 mg mg 05/25/24 Unknown History magnesium) tablet potassium chloride 20 mEq meq PO 05/25/24 Unknown History tablet,extended release risankizumab-rzaa 360 mg/2.4 mL mg subcut 05/25/24 Unknown History (150 mg/mL) subcut wearable injector (Skyrizi) spironolactone 25 mg tablet mg 05/25/24 Unknown History umeclidinium 62.5 mcg/actuation inhalation 05/25/24 Unknown History blister powder for inhalation (Incruse Ellipta) Allergies Allergy/AdvReac Type Severity Reaction Status Date / Time codeine Allergy Severe Anaphylaxis Verified 05/25/24 18:45 fentanyl Allergy Severe Seizure Verified 05/25/24 18:45 ibuprofen Allergy Severe Anaphylaxis Verified 05/25/24 18:45 clarithromycin (From Biaxin) Allergy Mild Rash Verified 05/25/24 18:45 latex Allergy Mild Redness of Verified 05/25/24 18:45 Skin Penicillins Allergy Mild Rash Verified 05/25/24 18:45 Sulfa (Sulfonamide Allergy Mild Rash Verified 05/25/24 18:45 Antibiotics) Review of Systems Review of Systems: CONSTITUTIONAL: Denies fever, chills, or sweats. EYES: Reports bilateral eye irritation, redness, itching and tearing. Reports mild blurred vision on the right and lids being matted shut in the morning when waking for the day ENT: Denies rhinorrhea, congestion, sore throat, or otalgia. CARDIOVASCULAR: Denies chest pain, palpitations, or edema. RESPIRATORY: Denies cough or dyspnea. GASTROINTESTINAL: Denies abdominal pain, nausea, vomiting, or diarrhea. GENITOURINARY: Denies dysuria or hematuria. SKIN: Denies rash or itching. MUSCULOSKELETAL: Denies back pain, joint pain, or myalgia. NEUROLOGIC: Denies headache, numbness, dizziness, or weakness. PSYCHIATRIC: Denies anxiety or depression. PMFSH Past Medical History Medical History Crohn disease Diabetes Heart disease Surgical History Surgical History No pertinent past surgical history Family History Family History Mother Family history non-contributory Social History Social History Living arrangements: with family Gender identity (if verbalized by the patient): Female Spiritual care concerns: No Exam Narrative: GENERAL: Well-appearing, well-nourished, and in no acute distress. HEAD: Normocephalic, atraumatic. EYES: PERRLA and EOMI. Mild right conjunctival injection. There is no dye uptake noted with fluorescein and Wood's lamp evaluation of either eye. There is some tearing from the right eye ENT: Nares clear, no rhinorrhea or epistaxis. Mucous membranes moist. Oropharynx without tonsillar hypertrophy exudate or other lesions. Bilateral TMs pearly branham nonbulging NECK: Supple. No adenopathy or masses. No carotid bruits or JVD CHEST: Clear to auscultation. No respiratory distress. No wheezes rales or rhonchi HEART: Regular rate and rhythm. No murmur heard. Normal peripheral pulses. ABDOMEN: Soft, nontender, nondistended, normal active bowel sounds. EXTREMITIES: Normal range of motion. No edema. SKIN: Warm, dry, no rash. There is erythema to the right lower eyelid NEURO: No focal deficits. Alert and oriented x3. PSYCH: Normal mood and affect. Course Course Emergency Course: This is a 54-year-old female who presented for evaluation bilateral eye irritation. Exam is most consistent with allergic conjunctivitis. Redness of the skin seems consistent with irritation from rubbing. Will discharge with cetirizine and Naphcon. Will cover with ophthalmic antibiotic. Follow-up with primary provider. Go to the ER for worsening symptoms. Patient in agreement with plan care. Level of Care: Express Care Visit Vital Signs Vital signs: Vital Signs Temperature 36.6 C 05/25/24 18:21 Pulse Rate 103 H 05/25/24 18:21 Respiratory Rate 18 05/25/24 18:21 Blood Pressure 145/72 H 05/25/24 18:21 Pulse Oximetry 96 05/25/24 18:21 Oxygen Delivery Room Air 05/25/24 18:21 Temperature 36.6 C 05/25/24 18:21 Pulse Rate 103 H 05/25/24 18:21 Respiratory Rate 18 05/25/24 18:21 Blood Pressure 145/72 H 05/25/24 18:21 Pulse Oximetry 96 05/25/24 18:21 Oxygen Delivery Room Air 05/25/24 18:21 Discharge Plan Discharge Clinical Impression: Conjunctivitis Patient Disposition: Home Condition: Stable Instructions: Antibiotic Form, Conjunctivitis (ED) Additional Instructions: Please ensure that you scrap picker cetirizine and Naphcon. If your insurance does not cover these, please ask the pharmacist worry can purchase them [id number]. These will likely help most with your symptoms. Patient Language: Serbian Prescriptions: New Naphcon-A 0.025-0.3 % drops 2 drp EACH EYE QID PRN (Reason: allergy symptoms) Qty: 15 0RF cetirizine 10 mg tablet 10 mg PO DAILY PRN (Reason: allergy symptoms) Qty: 15 0RF ofloxacin 0.3 % drops See Rx Instructions .ROUTE .COMPLEX Qty: 5 0RF Rx Instructions: put 1-2 drps into affected eye(s) every 2-4 h x 2 days, then 1-2 drps 4 times/day days 3-7 No Action carvedilol 6.25 mg tablet 6.25 mg DIRECTED potassium chloride 10 mEq tablet extended release 10 meq PO DIRECTED phenytoin [Dilantin Infatabs] 50 mg tablet,chewable 50 mg DIRECTED omeprazole 20 mg capsule,delayed release(DR/EC) 20 mg DIRECTED hydroxyzine HCl 25 mg tablet 25 mg DIRECTED albuterol sulfate 90 mcg/actuation HFA aerosol inhaler 90 inh INHALATION DIRECTED Stelara 90 mg/mL syringe 90 mg SUBCUT DIRECTED nystatin-triamcinolone 100,000-0.1 unit/g-% cream 1 applic topical BID 14 Days Qty: 60 0RF furosemide 40 mg tablet atorvastatin 20 mg tablet spironolactone 25 mg tablet magnesium oxide 400 mg (241.3 mg magnesium) tablet cholecalciferol (vitamin D3) 1,250 mcg (50,000 unit) capsule potassium chloride 20 mEq tablet extended release PO Incruse Ellipta 62.5 mcg/actuation blister with device INHALATION aspirin [Adult Aspirin Regimen] 81 mg tablet,delayed release (DR/EC) 81 mg PO DAILY Skyrizi 360 mg/2.4 mL (150 mg/mL) wearable injector SUBCUT Follow-up/Referrals: Ana Luisa,MD Maggie [Primary Care Provider] - Time of Disposition: 19:13
== END 2024-05-25 19:15 | disposition home or self-care (01) ==
PROVIDERS: Emergency Provider Nurse Practitioner; PCP Internal Medicine
DX: H10.9 Unspecified conjunctivitis (principal); E11.9 Type 2 diabetes mellitus without complications; K50.90 Crohn's disease, unspecified, without complications; Z79.899 Other long term (current) drug therapy; Z79.82 Long term (current) use of aspirin
CPT/HCPCS: 99213; A9270; G0463